=== PATIENT | male | born 1965 | race Caucasian/White ===

== ENCOUNTER 2024-01-17 16:43 | Emergency (ER) | payer BC, OTHER, SELFPAY ==
--- NOTE | 2024-01-17 16:54 | ED.URI ---
HPI - URI/Sore Throat General Chief Complaint: Upper Respiratory Infection Stated Complaint: cough Time Seen by Provider: 01/17/24 16:55 Source: patient Mode of arrival: ambulatory Limitations: no limitations History of Present Illness HPI Narrative: Patient is a 58-year-old male who presents with 2 weeks of persistent cough. Patient states at the start of symptoms he had typical cold symptoms with everything else has resolved besides cough. Denies ever having a fever, chills, nausea, vomiting, diarrhea. Patient has history of frequent bronchitis and has had cancer in his mediastinum years ago. Patient has been taking Tessalon Perles and [id number] medication. Related Data Home Medications Medication Instructions Recorded Confirmed aspirin 81 mg chewable tablet 81 mg PO DAILY 06/17/19 01/17/24 metoprolol succinate 100 mg 100 mg PO DAILY 06/17/19 01/17/24 tablet,extended release 24 hr telmisartan 40 mg tablet 40 mg PO DAILY 07/08/20 01/17/24 rosuvastatin 40 mg tablet 40 mg PO DAILY 07/13/22 01/17/24 ticagrelor 90 mg tablet (Brilinta) 60 mg PO Q12H 07/13/22 01/17/24 nitroglycerin 0.4 mg sublingual 0.4 mg sublingual Q5M PRN Chest 08/14/22 01/17/24 tablet Pain coenzyme Q10 75 mg capsule 75 mg PO DAILY 07/12/23 01/17/24 benzonatate 200 mg capsule 200 mg PO PRN PRN Cough 01/17/24 01/17/24 testosterone enanthate 200 mg/mL 200 mg IM WEEKLY 01/17/24 01/17/24 intramuscular oil Allergies Allergy/AdvReac Type Severity Reaction Status Date / Time lisinopril AdvReac Intermediate Cough Verified 01/17/24 16:53 celecoxib AdvReac Mild Rash Verified 01/17/24 16:53 Review of Systems Review of Systems: All systems reviewed & are unremarkable except as noted in HPI and below Constitutional: Constitutional: Denies body ache(s), Denies chills, Denies fatigue, Denies fever(s), Denies headache(s), Denies malaise and Denies weakness Eyes: Eyes: Denies blurry vision, Denies itchy eyes and Denies loss of vision ENT: Denies otalgia, Denies headache(s), Denies nasal congestion, Denies sinus pain and Denies sore throat Cardiovascular: Cardiovascular: Denies chest pain, Denies irregular heart rhythm and Denies dyspnea Respiratory: Respiratory: Reports cough and Denies dyspnea Gastrointestinal: Gastrointestinal: Denies abdominal pain, Denies diarrhea, Denies nausea and Denies vomiting Musculoskeletal: Musculoskeletal: Denies back pain, Denies myalgias and Denies arthralgias Integumentary/Breasts: Skin/Breast: Denies pruritus and Denies rash Neurologic: Denies headache(s), Denies loss of vision and Denies weakness Psychiatric: Psychiatric: Reports no additional psychiatric complaints Endocrine: Endocrine: Denies fatigue Allergic/Immunologic: Allergic/Immunologic: Denies itchy eyes PMFSH Past Medical History Medical History 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 Benign prostatic hyperplasia without lower urinary tract symptoms Cervical disc disorder with radiculopathy 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 Dyslipidemia ED (erectile dysfunction) Essential (primary) hypertension 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
[2024-01-17 17:04] VITALS: BP 141/82; PULSE 74; RESP 18; TEMP 36.8; O2SAT 96
== END 2024-01-17 17:14 | disposition home or self-care (01) ==
PROVIDERS: Emergency Provider Nurse Practitioner Family; PCP Physician Assistant
DX: J20.9 Acute bronchitis, unspecified (principal); Z87.891 Personal history of nicotine dependence; I25.10 Atherosclerotic heart disease of native coronary artery without angina pectoris; N40.0 Benign prostatic hyperplasia without lower urinary tract symptoms; E78.5 Hyperlipidemia, unspecified; I25.2 Old myocardial infarction; E11.9 Type 2 diabetes mellitus without complications; Z95.5 Presence of coronary angioplasty implant and graft; Z85.29 Personal history of malignant neoplasm of other respiratory and intrathoracic organs
CPT/HCPCS: 99211; G0463

== ENCOUNTER → 2024-07-20 10:43 | Outpatient (CLI) | payer BC, OTHER, SELFPAY ==
--- OUTSIDE RECORDS SUMMARY | 2024-07-28 06:51 | XMS_ITS | Encounter Summary ---
Author Organization [facility] Address [address] [place] [address]. [place], [place] [id number] [place] [address] Care Team Providers Care Basic Combatant Swimmer Name Role Phone Carroll Self MD Unavailable [phone] Carole Ravi PA-C Primary Care Provider + [phone] Encounter Details Date Type Department Care Team (Latest Contact Info) Description 06/02/2021 Travel Social History Tobacco Use Types Packs/Day Years Used Date Smoking Tobacco: Former Smokeless Tobacco: Former Chew Quit: 1993 Alcohol Use Standard Drinks/Week Comments Yes 1.7 (1 standard drink = 0.6 oz p ure alcohol) 2-3 per month AUDIT-C Answer Date Recorded Frequency of Alcohol Consumption Monthly or less 02/12/2019 Average Number of Drinks Not on file 019 Frequency of Binge Drinking Not on file 02/02 Sex and Gender Information Value Date Recorded Sex Assigned at Not on file Legal Sex Male 10:17 AM CDT Gender Identity Not on file Sexual Orientation Not on file 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 No / Unsure 06/02/2021 9:08 AM CDT documented as of this encounter Plan of Treatment Upcoming Encounters Date Type Department Care Team (Late st Contact Info) Description 08/31/2024 3:00 PM RESIN COATER Office Visit [facility] [address] [place] [phone] Carroll Self MD [facility]. [address] [address] documented as of this encounter Visit Diagnoses Not on filedocumented in this encounter Care Teams Basic Combatant Swimmer Relationship Specialty Start Date End Date Carole Ravi PA-C [address] [phone] PCP - General PHYSICIAN HAND FUNNEL COATER 01/26/19 Carroll Self MD [facility] [place]. [facility] [address] [place] [address] Didier Food Stylist CARDIOVASCULAR DISEASE 01/19/19 documented as of this encounter
--- OUTSIDE RECORDS SUMMARY | 2024-07-28 06:51 | XMS_ITS | Encounter Summary ---
Author Organization [facility] Address [address] [place] [address]. [place], [place] [address] [place] [address] Care Team Providers Care Physician/Internist Name Role Phone Carroll Self MD Unavailable [phone] Carole Ravi PA-C Primary Care Provider + [phone] Reason for Visit * Reason Onset Date Comments Advise 11/03/2019 Encounter Details Date Type Department Care Team (Late st Contact Info) Description 11/03/2019 Telephone [facility] at [address] [address] Carroll Self MD [facility]. 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 documented in this encounter Plan of Treatment Upcoming Encounters Date Type Department Care Team (Late st Contact Info) Description 08/31/2024 3:00 PM BENEFITS MANAGER [facility] [address] [place] [phone] Carroll Self MD [facility]. [facility] [address] [place], [place] [phone] documented as of this encounter Visit Diagnoses Not on filedocumented in this encounter Care Teams Physician/Internist Relationship Specialty Start Date End Date Carole Ravi PA-C [facility] [address] [place] [phone] PCP - General PHYSICIAN BEAN SORTER 01/26/19 Carroll Self MD [facility]. [facility] [address] [place], [place] [phone] [place] Special Agent In Charge CARDIOVASCULAR DISEASE 01/19/19 documented as of this encounter
--- OUTSIDE RECORDS SUMMARY | 2024-07-28 06:51 | XMS_ITS | Encounter Summary ---
Author Organization [facility] Address [address] [place] [address]. [place], [place] [address] [place] [address] Care Team Providers Care Applications Scientist Name Role Phone Carroll Sefl MD Unavailable [phone] Carole Ravi PA-C Primary Care Provider + [phone] Reason for Visit * Reason Comments Coronary Artery Disease Cardiomyopathy Hypertension Lipids Encounter Details Date Type Department Care Team (Late st Contact Info) Description 08/13/2022 9:15 AM TACK MAKER [facility] [address] [place] [phone] Elodia Alex, LETITIA [address] [place] [address] Coronary Artery Disease; Cardiomyopathy; Hypertension; Lipids Social History Tobacco Use Types Packs/Day Years [...] 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 Unable to assess 08/13/2022 9:53 AM TACK MAKER documented as of this encounter Last Filed Vital Signs Vital Sign Reading Time Taken Comments Blood Pressure 110/70 08/13/2022 9:14 AM TACK MAKER Pulse 75 08/13/2022 9:14 AM TACK MAKER Temperature - - Respiratory Rate - - Oxygen Saturation - - Inhaled Oxygen Concentration - - Weight 132.5 kg (292 lb) 08/13/2022 9:14 AM TACK MAKER Height 188 cm (6' 2 ) 08/13/2022 9:14 AM TACK MAKER Body Mass Index 37.49 08/13/2022 9:14 AM TACK MAKER documented in this encounter Progress Notes * Elodia Alex, LETITIA - 08/13/2022 9:15 AM CST Reason for Visit: Coronary Artery Disease, Cardiomyopathy, Hypertension, and Lipids History of Present Illness: Spencer Chaudhari is a pleasant 56-year-old male who a past medical history of CAD, 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 In January 2019 was on a family vacation at [employer] in [place] when he developed worsening SOB/CP. Had been having mild GALLO for weeks prior. Emergently seen in [place] and was found to have a 75% distal left main. Discussion between CTS/cardiologyand patient led to patient having impella assisted LM-LAD stenting and stenting of D1. Has been doing okay. Still with some heartburn after eating. Does note 4 episodes of chest pressurein the last 6 months. Seems to happen most after he has eaten a heavy meal or more gassy foods. attributes it from his paralyzed L diaphragm. All improved with one SL NTG. No issues while on a treadmill, otherwise feeling well. Still trying to use his home treadmill regularly. No new SOB. Tolerating meds well. Has plans to start a new diet plan for this year to better assist with weight loss. Still having problems with ED, even with Cialis. Some increased anxiety as well given underlying health problems. Labs: Lab Results Component Value Date/Time CHOL 110 06/02/2021 09:12 AM HDL 49 06/02/2021 09:12 AM LDL 47 06/02/2021 09:12 AM TRI 72 06/02/2021 09:12 AM CR 1.27 06/02/2021 09:12 AM Data Reviewed: Echo (2018) - EF 45-50%. Thickened valves but no significant valve disease. Cath (01/14/2019) - awaiting actual cath films. From description sounds like 75% distal LM, 55% mid LAD, 90% D1, 50% LCx. S/p KALEB to distal LM/LAD and proximal D1 Echo (07/2020) - EF > 55%, RV with depressed function. Not able to assess valves well. Recommendations and Plan: CAD/NSTEMI - had a minimal NSTEMI on presentation to [place], but also had complex intervention. Reasonable to keep on DAPT for now unless has significant bleeding/bruising. Continue high dose statin, metoprolol. Will not do stress testing yet, despite occasional angina, given continued okay exercise tolerance. Patient knows to call if anginal symptoms get worse or more frequent. HLP - continue on HI statin, LDL < 70. New labs pending HTN - controlled. No changes needed. ICM - had initially during cardiac event in 2019, but most recent echo seems to show EF normalized. KIRBY - Patient is compliant with CPAP therapy. Continue nightly use. ED - on Cialis. Still having problems. Aware CPAP compliance, exercise, weight loss can also help. Will have him see urology (Dr. Morales) for further evaluation. Follow up in 6 months or sooner if needed. Medications: Current Outpatient Medications: ??? aspirin EC 81 MG tablet, Take 81 mg by mouth daily., Disp: , Rfl: ??? BRILINTA 60 MG tablet, TAKE 1 TABLET BY MOUTH TWICE A DAY, Disp: 180 tablet, Rfl: 0 ??? lactobacillus capsule, Take 1 capsule by mouth 2 (two) times daily with meals., Disp: , Rfl: ??? metoprolol succinate ER (TOPROL-XL) 100 MG 24 hr tablet, TAKE 1 TABLET BY MOUTH EVERY DAY, Disp: 90 tablet, Rfl: 0 ??? nitroglycerin (NITROSTAT) 0.4 MG SL tablet, PLACE 1 TABLET UNDER THE TONGUE EVERY 5 MINUTES, UPTO 3 DOSES NEEDED FOR CHEST PAIN, Disp: 25 tablet, Rfl: 1 ??? rosuvastatin (CRESTOR) 40 MG tablet, Take 1 tablet (40 mg total) by mouth nightly at bedtime., Disp: 90 tablet, Rfl: 2 ??? SYMBICORT 160-4.5 MCG/ACT inhaler, 2 (two) times a day., Disp: , Rfl: ??? tadalafil (CIALIS) 20 MG tablet, Take 1 tablet (20 mg total) by mouth daily as needed for Erectile Dysfunction., Disp: 10 tablet, Rfl: 1 ??? TELMISARTAN 40 MG tablet, TAKE 1 TABLET BY MOUTH EVERY DAY, Disp: 90 tablet, Rfl: 2 ??? VICTOZA 18 MG/3ML injection, INJECT 1.8MG UNDER THE SKIN ONCE DAILY, Disp: , Rfl: Allergies Allergen Reactions ??? Celebrex [Celecoxib] Rash Past Medical History: Diagnosis Date ??? CAD (coronary artery disease) ??? Cancer (CMS/HCC) ??? Dyslipidemia ??? Essential hypertension ??? Myocardial infarction (CMS/HCC) 01/10/2019 ??? Sleep apnea Past Surgical History: Procedure Laterality Date ??? CARDIAC STENTS 01/14/2019 Social History Tobacco Use ??? Smoking status: Former ??? Smokeless tobacco: Former Types: Chew Quit date: 1993 Substance Use Topics ??? Alcohol use: Yes Alcohol/week: 1.7 standard drinks Types: 1 Glasses of wine per week Comment: 2-3 per month ??? Drug use: No No family history on file. Family Status Relation Name Status ??? Mother Alive ??? Father Alive ??? Sister Alive ??? Brother Alive Review of Systems Constitutional: Negative for recent unintentional weight gain, recent unintentional weight loss andnew or significant fatigue. HENT: Negative for new or significant hearing loss. Eyes: Negative for blurred vision and double vision. Respiratory: Positive for cough (occasional ). Negative for new or significant shortness of breath and snoring. Cardiovascular: See HPI. Positive for chest pain.Negative for palpitations and orthopnea. Gastrointestinal: Positive for heartburn. Negative for blood in stool and melena. Genitourinary: Negative for dysuria. Musculoskeletal: Negative for myalgias and new or worsening joint stiffness/pain. Skin: Negative for rash. Neurological: Negative for tingling/numbness and focal weakness. Endo/Heme/Allergies: Negative for new or significant bruising/bleeding and polydipsia. Psychiatric/Behavioral: Positive for nervous/anxious. Negative for depression and new or significant memory loss. Filed Vitals: 08/13/22 0914 BP: 110/70 Pulse: 75 Weight: 132.5 kg (292 lb) Height: 6' 2 (1.88 m) Body mass index is 37.49 kg/m??. Physical Exam Constitutional: No distress. HENT: Eyes: Conjunctivae normal. Neck: Normal range of motion. Neck supple. No JVD. Pulmonary: Effort normal. Breath sounds normal. Abdomen: Abdomen soft. Bowel sounds normal. No distension. No tenderness. Neurological: Alert. Oriented x 3. Skin: Dry. Warm. Musculoskeletal: Normal ROM. Cardiovascular: Rate: Regular rhythm and Normal rate. PMI: Pulses: Right Carotid pulses 2+, Left Carotid pulses 2+, Right DP pulses 2+, Left DP pulses 2+, Edema left: 0. , Edema Right: 0. , Heart Sounds: Normal heart sounds. Normal S1 and Normal S2. No S3 sound. No S4 sound and No murmur. Cardiovascular Comments: Diagnoses/Impression: No diagnosis found. Referring Provider: No ref. provider found PCP: CAROLE RAVI PA-C MAKER documented in this encounter Plan of Treatment Upcoming Encounters Date Type Department Care Team (Late st Contact Info) Description 08/31/2024 3:00 PM TACK MAKER Office Visit [facility] [address] [place] [phone] Carroll Self MD [facility]. [address] [address] documented as of this encounter Results * CK (CPK) (02/11/2023 8:37 AM CDT) CPK 182 39 - 308 U/L 02/11/2023 9:[address] [facility] 02/11/2023 8:37 AM CDT Elodia Alex [facility] Final Result [facility] [address] [place] [address], [place] [phone] * (ABNORMAL) HGB A1C (02/11/2023 8:37 AM CDT) HGB A1C 6.5(H) <5.7 % 02/11/2023 10:[address] [facility] Comment: INCREASED RISK OF DIABETES <5.7% ?NON-DIABETES 5.7-6.4% INCREASED RISK FOR FUTURE DIABETES > OR = 6.5 CONSISTENT WITH DIABETES STANDARDS OF MEDICAL CARE IN DIABETES-2009 DIABETES CARE, 33(SUPP 1): S1-S61,2010 ESTIMATED AVG GLUCOSE 140 mg/dL 02/11/2023 10:[address] [facility] 02/11/2023 8:37 AM CDT Elodia Alex [facility] Final Result Performing Organization Address [facility] Co de Phone Number [facility] [address] [place] [address], [place] [phone] * LIPID PANEL (02/11/2023 8:37 AM CDT) CHOLESTEROL 114 <200.0 MG/DL 02/11/2023 9:[address] [facility] TRIGLYCERIDES 83 <150 MG/DL 02/11/2023 9:[address] [facility] HDL 54 >40.0 MG/DL 02/11/2023 9:[address] [facility] LDL (CALCULATED) 43 <100 MG/DL 02/12/20 9:06 AM CDT [facility] NON HDL CHOLESTEROL 60 <130 MG/DL 02/11 9:06 AM CDT [facility] CHOL/HDL RATIO 2.1 0.0 - 4.5 02/11/2023 9:06 AM CDT [facility] VLDL CALCULATION 17 5 - 55 MG/DL 02/11/2023 9:06 AM CDT [facility] LIPID INTERPRETATION 02/11/2023 9:06 AM CDT [facility] Comment: NIH CONCENSUS REPORT RECOMMENDATIONS: ?ADULT ?CHILD ??LOW RISK: ?CHOLESTEROL ? <200 ? <170 ?TRIGLYCERIDE ?<150 ?--- ?HDL ? >=60 ?--- ?LDL ? <100 ? <110 ??BORDERLINE: ?CHOLESTEROL ? 200-239 ?? 170-199 ?TRIGLYCERIDE ?150-199 ? --- ?HDL ?40-59 ?--- ?LDL ? 100-159 ?? 110-129 ??HIGH RISK: ?CHOLESTEROL ? >=240 ?>=200 ?TRIGLYCERIDE ?>=200 ? --- ?HDL ?<40 ?--- ?LDL ? >=160 ?>=130 02/11/2023 8:37 AM CDT Elodia Alex [facility] Final Result [facility] [address] [place] [address], * (ABNORMAL) CBC, AUTO, NO DIFF (02/11/2023 8:37 AM CDT) WBC 4.35(L) 4.4 - 11.0 x10'3/uL 02/11/2023 8:[address] [facility] RBC 4.61 4.50 - 5.90 x10'6/uL 02/11/2023 8:[address] [facility] HGB 13.2(L) 14.0 - 17.5 G/DL 02/11/2023 8:[address] [facility] HCT 41.4(L) 41.5 - 50.4 % 02/11/2023 8:[address] [facility] MCV 89.8 80.0 - 96.0 FL 02/11/2023 8:[address] [facility] MCH 28.6 26.5 - 31.4 PG 02/11/2023 8:[address] [facility] MCHC 31.9 31.9 - 34.8 G/DL 02/11/2023 8:[address] [facility] RDW 16.1(H) 12.3 - 14.3 % 02/11/2023 8:[address] [facility] PLT 163 151 - 353 x10'3/uL 02/11/2023 8:[address] [facility] MPV 10.5 9.7 - 11.9 FL 02/11/2023 8:[address] [facility] 02/11/2023 8:37 AM CDT [facility] Final Result [facility] [address] [place] [address], [place] [phone] * (ABNORMAL) BASIC METABOLIC PANEL (02/11/2023 8:37 AM CDT) GLUCOSE 102(H) 70 - 99 MG/DL 02/11/2023 9:[address] [facility] BUN 17 7 - 18 MG/DL 02/11/2023 9:[address] [facility] CREATININE S/P/B 1.26 0.7 - 1.3 MG/DL 02/11/2023 9:[address] [facility] SODIUM S/P/B 139 136 - 145 MMOL/L 02/11/2023 9:[address] [facility] POTASSIUM S/P/B 4.2 3.5 - 5.1 MMOL/L 02/11/2023 9:[address] [facility] CHLORIDE S/P/B 102 100 - 108 MMOL/L 02/11/2023 9:[address] [facility] CO2 27.4 21 - 32 MMOL/L 02/11/2023 9:[address] [facility] CALCIUM S/P/B 9.2 8.5 - 10.1 MG/DL 02/11/2023 9:[address] [facility] ANION GAP 9.6 5 - 15 MMOL/L 02/11/2023 9:[address] [facility] BUN CREATININE RATIO 13.5 6 - 26 02/11/2023 9:[address] [facility] GFR ESTIMATE 67(L) >90 ML/MIN/1.7 3 M2 02/11/2023 9:[address] [facility] Comment: NOTE: eGFR is not calculated for patients <18 years of age. This is an estimated GFR calculation using the new CKD EPI creatinine equation without race and so does not require a correction factor for race. This estimated GFR should not be used for calculating drug doses. 02/11/2023 8:37 AM CDT Elodia Alex [facility] Final Result [facility] [address] [place] [id number], documented in this encounter Visit Diagnoses Diagnosis Coronary artery disease due to lipid rich plaque- Primary Type 2 diabetes mellitus with other specified complication, unspecified whether intermediate school teacher insulin use ([facility]) Essential (primary) hypertension Unspecified essential hypertension Mixed hyperlipidemia Class 2 obesity due to excess calories with body mass index (BMI) of 37.0 to 37.9 in adult, unspecified whether serious comorbidity present KIRBY on CPAP Obstructive sleep apnea (adult) (pediatric) Erectile dysfunction, unspecified erectile dysfunction type documented in this encounter Care Teams Applications Scientist Relationship Specialty Start Date End Date Carole Ravi PA-C [facility] [address] [place] [phone] PCP - General PHYSICIAN AIRCRAFT TIME CLERK 01/26/19 Carroll Self MD [address] [address] [place] Telegraphic Typewriter Repairer CARDIOVASCULAR DISEASE 01/19/19 documented as of this encounter
--- OUTSIDE RECORDS SUMMARY | 2024-07-28 06:51 | XMS_ITS | Encounter Summary ---
Author Organization [facility] Address [address] [place] [address]. [place] [address] [place] [address] Care Team Providers Care Management Development Specialist Name Role Phone Carroll Self MD Unavailable [phone] Carole Ravi PA-C Primary Care Provider + [phone] Reason for Visit * Reason Comments Coronary Artery Disease Cardiomyopathy Hypertension Lipids Encounter Details Date Type Department Care Team (Late st Contact Info) Description 02/11/2023 9:15 AM CDT [facility] [address] [place] [phone] Carroll Self MD [address] [phone] Coronary Artery Disease; Cardiomyopathy; Hypertension; Lipids Social [...] 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 Not on file Not on file documented as of this encounter Last Filed Vital Signs Vital Sign Reading Time Taken Comments Blood Pressure 138/88 02/11/2023 9:04 AM CDT Pulse 68 02/11/2023 9:04 AM CDT Temperature - - Respiratory Rate - - Oxygen Saturation - - Inhaled Oxygen Concentration - - Weight 136.1 kg (300 lb) 02/11/2023 9:04 AM CDT Height 188 cm (6' 2 ) 02/11/2023 9:04 AM CDT Body Mass Index 38.52 02/11/2023 9:04 AM CDT documented in this encounter Patient Instructions * Patient Instructions* LAZARO Parnell - 02/11/2023 9:15 AM CDT documented in this encounter Progress Notes * Carroll Self MD - 02/11/2023 9:15 AM CDT Reason for Visit: Coronary Artery Disease, Cardiomyopathy, Hypertension, and Lipids History of Present Illness: Spencer Chaudhari is a pleasant 57-year-old male who a past medical history of CAD, 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 In January 2019 was on a family vacation at [place] in [place] when he developed worsening SOB/CP. Had been having mild GALLO for weeks prior. Emergently seen in [place] and was found to have a 75% distal left main. Discussion between CTS/cardiologyand patient led to patient having impella assisted LM-LAD stenting and stenting of D1. Has been doing okay. Still with some heartburn after eating. Feels full, and that if he starts doing something active will have some chest discomfort. Doesn't happen other times. Still on a TM at least once a week, but admits he is doing less than he used to. About 2.5MPH at 2-3% incline. No problems with this. No other new chest pain/pressure, SOB. No new edema. No problems with LH. Using CPAP without issues. Labs: Lab Results Component Value Date/Time CHOL 114 02/11/2023 08:37 AM HDL 54 02/11/2023 08:37 AM LDL 43 02/11/2023 08:37 AM TRI 83 02/11/2023 08:37 AM CR 1.26 02/11/2023 08:37 AM Data Reviewed: Echo (2018) - EF [...] had a minimal NSTEMI on presentation to [place], but also had complex intervention. Reasonable to [...] compliance, exercise, weight loss can also help. Could see urology Follow up in 6 months or sooner if needed. Medications: Current Outpatient Medications: aspirin EC 81 MG tablet, Take 1 tablet (81 mg total) by mouth daily., Disp: , Rfl: BRILINTA 60 MG tablet, TAKE 1 TABLET BY MOUTH TWICE A DAY, Disp: 180 tablet, Rfl: 1 lactobacillus capsule, Take 1 capsule by mouth 2 (two) times daily with meals., Disp: , Rfl: metoprolol succinate ER (TOPROL-XL) 100 MG 24 hr tablet, TAKE 1 TABLET BY MOUTH EVERY DAY, Disp: 90tablet, Rfl: 1 MOUNJARO 7.5 MG/0.5ML injection, INJECT 7.5MG SUBCUTANEOUSLY ONCE WEEKLY, Disp: , Rfl: nitroglycerin (NITROSTAT) 0.4 MG SL tablet, PLACE 1 TABLET UNDER THE TONGUE EVERY 5 MINUTES, UP TO 3 DOSES NEEDED FOR CHEST PAIN, Disp: 25 tablet, Rfl: 1 rosuvastatin (CRESTOR) 40 MG tablet, TAKE 1 TABLET BY MOUTH NIGHTLY AT BEDTIME, Disp: 90 tablet, Rfl: 2 SYMBICORT 160-4.5 MCG/ACT inhaler, 2 (two) times a day., Disp: , Rfl: tadalafil (CIALIS) 20 MG tablet, Take 1 tablet (20 mg total) by mouth daily as needed for Erectile Dysfunction., Disp: 10 tablet, Rfl: 1 telmisartan (MICARDIS) 40 MG tablet, TAKE 1 TABLET BY MOUTH EVERY DAY, Disp: 90 tablet, Rfl: 1 Review of patient's allergies indicates: Allergen Reactions Celebrex [Celecoxib] Rash Past Medical History: Diagnosis Date CAD (coronary artery disease) Cancer ([facility]) Dyslipidemia Essential hypertension Myocardial infarction ([facility]) 01/10/2019 Sleep apnea Past Surgical History: Procedure Laterality Date CARDIAC STENTS 01/14/2019 Social History Tobacco Use Smoking status: Former Smokeless tobacco: Former Types: Chew Quit date: 1993 Substance Use Topics Alcohol use: Yes Alcohol/week: 1.7 standard drinks Types: 1 Glasses of wine per week Comment: 2-3 per month Drug use: No No family history on file. Family Status Relation Name Status Mother Alive Father Alive Sister Alive Brother Alive Review of Systems Constitutional: Negative [...] new or significant memory loss. Filed Vitals: 02/11/23 0904 BP: 138/88 Pulse: 68 Weight: 136.1 kg (300 lb) Height: 6' 2 (1.88 m) Body mass index is 38.52 kg/m??. Physical Exam Constitutional: No distress. HENT: [...] 2+, Left DP pulses 2+, Edema left: 1+. , Edema Right: 1+. Heart Sounds: Normal heart sounds. Normal S1 and Normal S2. No S3 sound. No S4 sound and No murmur. Cardiovascular Comments: Diagnoses/Impression: 1. Coronary artery disease due to lipid rich plaque 2. Dyslipidemia 3. Essential (primary) hypertension 4. Ischemic cardiomyopathy 5. KIRBY on CPAP Referring Provider: No ref. provider found PCP: CAROLE RAVI PA-C documented in this encounter Plan of Treatment Upcoming Encounters Date Type Department Care Team (Late st Contact Info) Description 08/31/2024 3:00 PM ACADEMIC COUNSELOR Office Visit [facility] [address] [phone] Carroll Self MD [facility]. [address] [address] documented as of this encounter Visit Diagnoses Diagnosis Coronary artery disease due to lipid rich plaque- Primary Dyslipidemia Other and unspecified hyperlipidemia Essential (primary) hypertension Unspecified essential hypertension Ischemic cardiomyopathy Other specified forms of chronic ischemic heart disease KIRBY on CPAP Obstructive sleep apnea (adult) (pediatric) documented in this encounter Care Teams Management Development Specialist Relationship Specialty Start Date End Date Carole Ravi PA-C FAMILY MEDICINE [address] [place] [phone] PCP - General PHYSICIAN INSTRUCTIONAL CONSULTANT 01/26/19 Carroll Self MD [facility]. [address] [address] [place] Medical Consultant CARDIOVASCULAR DISEASE 01/19/19 documented as of this encounter
--- OUTSIDE RECORDS SUMMARY | 2024-07-28 06:51 | XMS_ITS | Encounter Summary ---
Author Organization [facility] Address [address] [place] [address]. [place], [place] [address] [place] [address] Care Team Providers Care Creative Writing Professor Name Role Phone Carroll Self MD Unavailable [phone] Carole Ravi PA-C Primary Care Provider + [phone] Reason for Visit * Reason Comments Coronary Artery Disease Cardiomyopathy Encounter Details Date Type Department Care Team (Late st Contact Info) Description 02/17/2024 9:30 AM CDT [facility] [address] [place] [address] Carroll Self MD [facility]. 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 Not on file Not on file documented as of this encounter Last Filed Vital Signs Vital Sign Reading Time Taken Comments Blood Pressure 110/70 02/17/2024 9:34 AM CDT Pulse 68 02/17/2024 9:34 AM CDT Temperature - - Respiratory Rate - - Oxygen Saturation - - Inhaled Oxygen Concentration - - Weight 128.8 kg (284 lb) 02/17/2024 9:34 AM CDT Height 188 cm (6' 2 ) 02/17/2024 9:34 AM CDT Body Mass Index 36.46 02/17/2024 9:34 AM CDT documented in this encounter Progress Notes * Elodia Alex, LETITIA - 02/17/2024 9:30 AM CDT Reason for Visit: Coronary Artery Disease and Cardiomyopathy History of Present Illness: Spencer Chaudhari is a very pleasant 58-year-old male who a past medical history of CAD, 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 In January 2019 [place] was [place] when he developed worsening SOB/CP. Had been having mild GALLO for weeks prior. Emergently seen in [place] and was found to have a 75% distal left main. Discussion between CTS/cardiology and patient led to patient having impella assisted LM-LAD stenting and stenting of D1. Has been doing well since. Using CPAP without issues. Follows with urology now for his ED. Has beentaking testosterone for over 7 months now. Has a better libido now thus, more sexually active. He tells me that during climax, will develop SOB. No CP, pressure or heaviness. Will use an albuterol inhaler after. Seems to be helpful. Lasts only a few seconds. Has a sleep doc at [facility]. Isplanning on taking to him about it in the next couple months. No clear SOB doing ADLs. Walking for activity but no regular exercise. Is wanting to start a more designated exercise program with some weight lifting. Still losing some weight with the assist of Ronnie. Is wanting to loose 50 more lbs. Labs: Lab Results Component Value Date/Time CHOL [...] to assess valves well. Recommendations and Plan: CAD/NSTEMI/SOB - had a minimal NSTEMI on presentation to [place], but also had complex intervention. Reasonable to keep on DAPT for now unless has significant bleeding/bruising. Continue high dose statin,metoprolol. HEAVILY encouraged more exercise to better gait symptoms. Not interested in repeat stress testing right now. Patient knows to call if anginal symptoms get worse or more frequent. Has SL NTG on hand if needed. HLP - continue on HI statin, LDL < 70. New labs pending. HTN - controlled. No changes needed. ICM - had initially during cardiac event in 2019, but most recent echo seems to show EF normalized.No CHF concerns. KIRBY - Patient is compliant with CPAP therapy. Continue nightly use. ED - on Cialis and testosterone. Would be overly cautious given his CAD hx. Follow up in 6 months or sooner if needed. Medications: Current Outpatient Medications: albuterol sulfate HFA 108 (90 Base) MCG/ACT inhaler, INHALE 1 - 2 PUFFS BY MOUTH EVERY 4 - 6 HOURS NEEDED FOR SHORTNESS OF BREATH OR WHEEZING, Disp: , Rfl: aspirin EC 81 MG tablet, Take 1 tablet (81 mg total) by mouth daily., Disp: , Rfl: lactobacillus capsule, Take 1 capsule by mouth 2 (two) times daily with meals., Disp: , Rfl: metoprolol succinate ER (TOPROL-XL) 100 MG 24 hr tablet, take 1 tablet by mouth every day, Disp: 90tablet, Rfl: 1 [facility] OR, Take by mouth daily. hepatacore, Disp: , Rfl: MOUNJARO 10 MG/0.5ML injection, Inject 10 mg into the skin every 7 days., Disp: , Rfl: nitroglycerin (NITROSTAT) 0.4 MG SL tablet, PLACE 1 TABLET (0.4 MG TOTAL) UNDER THE TONGUE EVERY 5 (FIVE) MINUTES NEEDED FOR CHEST PAIN. MAXIMUM 3 DOSES. THEN CALL 911, Disp: 25 tablet, Rfl: 3 rosuvastatin (CRESTOR) 40 MG tablet, take 1 tablet by mouth everyday at bedtime, Disp: 90 tablet, Rfl: 1 SYMBICORT 160-4.5 MCG/ACT inhaler, 2 (two) times a day., Disp: , Rfl: tadalafil (CIALIS) 20 MG tablet, Take 1 tablet (20 mg total) by mouth daily as needed for Erectile Dysfunction., Disp: 10 tablet, Rfl: 1 telmisartan (MICARDIS) 40 MG tablet, take 1 tablet by mouth every day, Disp: 90 tablet, Rfl: 1 testosterone enanthate (DELATESTRYL) 200 MG/ML injection, Inject 0.5 mLs (100 mg total) into the muscle every 7 days., Disp: , Rfl: ticagrelor (BRILINTA) 60 MG tablet, take 1 tablet by mouth twice a day, Disp: 180 tablet, Rfl: 1 Vitamin D-Vitamin K (VITAMIN K2-VITAMIN D3 OR), Take by mouth daily., Disp: , Rfl: Review of patient's allergies indicates: Allergen Reactions Lisinopril Cough Celebrex [Celecoxib] Rash Past Medical History: Diagnosis Date CAD (coronary artery disease) Cancer ([facility]) Dyslipidemia Essential hypertension Myocardial infarction ([facility]) 01/10/2019 Sleep apnea Past Surgical History: Procedure Laterality Date CARDIAC STENTS 01/14/2019 Social History Tobacco Use Smoking status: Former Smokeless tobacco: Former Types: Chew Quit date: 1993 Substance Use Topics Alcohol use: Yes Alcohol/week: 1.7 standard drinks of alcohol Types: 1 Glasses of wine per week Comment: 2-3 per month Drug use: No No family history on file. Family Status Relation Name Status Mother Alive Father Alive Sister Alive Brother Alive No partnership data on file Review of Systems Constitutional: Positive for weight loss. Negative for recent unintentional weight gain and new or significant fatigue. HENT: Negative for new or significant hearing loss. Eyes: Negative for blurred vision and double vision. Respiratory: Positive for shortness of breath and snoring. Negative for cough. Cardiovascular: See HPI. Negative for chest pain, palpitations and orthopnea. Gastrointestinal: Negative for heartburn, nausea, vomiting, abdominal pain, constipation, blood in stool and melena. Genitourinary: Negative for dysuria. Musculoskeletal: Negative for myalgias and new or worsening joint stiffness/pain. Skin: Negative for rash. Neurological: Negative for dizziness, tingling/numbness and focal weakness. Endo/Heme/Allergies: Negative for new or significant bruising/bleeding and polydipsia. Psychiatric/Behavioral: Negative for depression, nervous/anxious and new or significant memory loss. All other systems reviewed and are negative. Filed Vitals: 02/17/24 0934 BP: 110/70 Pulse: 68 Weight: 128.8 kg (284 lb) Height: 1.88 m (6' 2 ) Body mass index is 36.46 kg/m??. Physical Exam Constitutional: Healthy appearance. No distress. HENT: Eyes: Conjunctivae normal. Neck: [...] Cardiovascular Comments: Diagnoses/Impression: 1. Coronary artery disease involving yomba shoshone coronary artery of yomba shoshone heart without angina pectoris 2. Essential (primary) hypertension 3. Mixed hyperlipidemia 4. KIRBY on CPAP 5. Class 2 obesity due to excess calories with body mass index (BMI) of 36.0 to 36.9 in adult, unspecified whether serious comorbidity present Referring Provider: No ref. provider found PCP: CAROLE RAVI PA-C documented in this encounter Plan of Treatment Upcoming Encounters Date Type Department Care Team (Late st Contact Info) Description 08/31/2024 3:00 PM FEATHER STITCHER [facility] [address] [place] [phone] Carroll Self MD [facility]. [address] [place] [address] documented as of this encounter Visit Diagnoses Diagnosis Coronary artery disease involving yomba shoshone coronary artery of yomba shoshone heart without angina pectoris- Primary SOB (shortness of breath) Shortness of breath Essential (primary) hypertension Unspecified essential hypertension Mixed hyperlipidemia KIRBY on CPAP Obstructive sleep apnea (adult) (pediatric) Class 2 obesity due to excess calories with body mass index (BMI) of 36.0 to 36.9 in adult, unspecified whether serious comorbidity present documented in this encounter Administered Medications Administered Medications Medication Order MAR Action Action Date Dose Rate Site Tb Sarah Test Given 01/25/2012 0.1 mL Tb Sarah Test Given 03/18/1998 Tb Sarah Test Given 03/24/1999 Tb Sarah Test Given 05/26/1997 Tb Sarah Test Given 05/15/2000 Tb Sarah Test Given 03/13/2002 documented in this encounter Care Teams Creative Writing Professor Relationship Specialty Start Date End Date Carole Ravi PA-C FAMILY MEDICINE [address] [place] [phone] PCP - General PHYSICIAN REGIONAL REFRIGERATED CDL TRUCK DRIVER 01/26/19 Carorll Self MD [facility]. [address] [place] [address] [place] Stock Worker And Deliverer CARDIOVASCULAR DISEASE 01/19/19 documented as of this encounter
--- OUTSIDE RECORDS SUMMARY | 2024-07-28 06:51 | XMS_ITS | Encounter Summary ---
Author Organization [facility] Address [address] [place] [address]. [place], [place] [address] [place] [address] Care Team Providers Care Wet Machine Cutter Name Role Phone Carroll Self MD Unavailable [phone] Carole Ravi PA-C Primary Care Provider + [phone] Reason for Visit * Reason Onset Date Comments Lab Results 06/02/2021 Encounter Details Date Type Department Care Team (Late st Contact Info) Description 06/02/[address] [phone] Jessica Pereira airport duty manager Results Social History Tobacco Use Types Packs/Day Years Used Date Smoking Tobacco: Former Smokeless Tobacco: Former Chew Quit: 1994 Alcohol Use Standard Drinks/Week Comments Yes 1.7 [...] 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 No / Unsure 06/02/2021 9:08 AM CDT documented as of this encounter Progress Notes * Jessica Pereira RN - 06/02/2021 2:10 PM CDT Labs stable. Above message from Elodia HUANG. I informed the patient of the above information and to keep his upcoming appt. The patient verbalized understanding and had no further questions. documented in this encounter Plan of Treatment Upcoming Encounters Date Type Department Care Team (Late st Contact Info) Description 08/31/2024 3:00 PM TEST DATA DEVELOPER Office Visit [facility] [address] [place] [phone] Carroll Self MD [facility]. [address] [address] documented as of this encounter Visit Diagnoses Not on filedocumented in this encounter Care Teams Wet Machine Cutter Relationship Specialty Start Date End Date Carole Ravi PA-C FAM[facility] MED[facility] [address] [place] [phone] PCP - General PHYSICIAN FITNESS WORKER 01/26/19 Carroll Self MD [facility]. [address] [address] [place] Pathology Supervisor CARDIOVASCULAR DISEASE 01/19/19 documented as of this encounter
--- OUTSIDE RECORDS SUMMARY | 2024-07-28 06:51 | XMS_ITS | Encounter Summary ---
Author Organization [facility] Address [address] [place] [address]. 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 Unable to assess 12/08/2020 2:50 PM CDT documented as of this encounter Plan of Treatment Upcoming Encounters Date Type Department Care Team (Late st Contact Info) Description 08/31/2024 3:00 PM INSURANCE AGENCY SALES MANAGER Office Visit [facility] [address] [place] [phone] Carroll Self MD [facility]. [facility] [address] [place] [address] documented as of this encounter Visit Diagnoses Not on filedocumented in this encounter Care Teams Applied Psychology Professor Relationship Specialty Start Date End Date Carole Ravi PA-C [address] [phone] PCP - General PHYSICIAN CORPORATE TREASURER 01/26/19 Carroll Self MD [facility]. [facility] [address] [place] [address] Didier Supervisor [employer] CARDIOVASCULAR DISEASE 01/19/19 documented as of this encounter
--- OUTSIDE RECORDS SUMMARY | 2024-07-28 06:51 | XMS_ITS | Encounter Summary ---
Author Organization [facility] Address [address] [place] [address]. [place], [place] [address] [place] [address] Care Team Providers Care Photographer'S Model Name Role Phone Carroll Self MD Unavailable [phone] Carole Ravi PA-C Primary Care Provider + [phone] Reason for Visit * Reason Onset Date Comments Results 06/09/2021 Encounter Details Date Type Department Care Team (Late st Contact Info) Description 06/09/[address] [phone] Emily Gutierres, RN Results Social History Tobacco Use Types Packs/Day [...] have Coronavirus / COVID-19? No / Unsure 06/08/2021 10:35 AM CDT documented as of this encounter Progress Notes * Emilydemario Gutierres RN - 06/09/2021 9:57 AM CDT Patient informed of the response and v/u. Patient had no further questions. * Emily Gutierres RN - 06/09/2021 9:57 AM CDT ----- Message from LETITIA Cook sent at 06/08/2021 1:07 PM CDT ----- Please let patient know that his A1C is 7.0% confirming T2DM. Needs addressed by his primary. documented in this encounter Plan of Treatment Upcoming Encounters Date Type Department Care Team (Late st Contact Info) Description 08/31/2024 3:00 PM HAND CUTTER APPRENTICE Office Visit [facility] [address] [phone] Carroll Self MD [facility]. [address] [address] documented as of this encounter Visit Diagnoses Not on filedocumented in this encounter Care Teams Photographer'S Model Relationship Specialty Start Date End Date Carole Ravi PA-C FAMILY MEDIC[facility] [address] [place] [phone] PCP - General PHYSICIAN DROSS PULLER 01/26/19 [facility] [address] [place], [place] [phone] [place] Roustabout Pusher CARDIOVASCULAR DISEASE 01/19/19 documented as of this encounter
--- OUTSIDE RECORDS SUMMARY | 2024-07-28 06:51 | XMS_ITS | Encounter Summary ---
Author Organization [facility] Address [address] [place] [address]. 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 * MARY Jiménez - 03/09/2019 3:49 PM CDT AugMarch 03 phone note states that his insurance will not cover rehab/ therapy here so he requested to go to [place]. documented in this encounter Plan of Treatment Upcoming Encounters Date Type Department Care Team (Late st Contact Info) Description 08/31/2024 3:00 PM CHIMNEY SWEEPER Office Visit [place] [facility] [address] [place] [phone] Carroll Self MD [facility]. [address] [address] documented as of this encounter Visit Diagnoses Not on filedocumented in this encounter Care Teams Natural Fabricator Relationship Specialty Start Date End Date Carole Ravi PA-C [facility] [address] [place] [phone] PCP - General PHYSICIAN ASSOCIATE AUTOMATION ENGINEER 01/26/19 Carroll Self MD [facility]. [facility] [address] [place] [address] Didier Acid Extractor CARDIOVASCULAR DISEASE 01/19/19 documented as of this encounter
--- OUTSIDE RECORDS SUMMARY | 2024-07-28 06:51 | XMS_ITS | Encounter Summary ---
Author Organization [facility] Address [address] [place] [address]. [place], [place] [address] [place] [address] Care Team Providers Care Porcelain Enameler Name Role Phone Carroll Self MD Unavailable [phone] Carole Ravi PA-C Primary Care Provider + [phone] Reason for Visit * Reason Onset Date Comments Information 03/10/2019 [facility] / record request Encounter Details Date Type Department Care Team (Late st Contact Info) Description 03/10/2019 Telephone [facility] at [facility], [address] [address] Carroll Self MD [facility]. 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 documented in this encounter Plan of Treatment Upcoming Encounters Date Type Department Care Team (Late st Contact Info) Description 08/31/2024 3:00 PM MEDICAL SALES REPRESENTATIVE Office Visit [place] [facility] [address] [place] [address] Carroll Self MD [facility]. [address] [address] documented as of this encounter Visit Diagnoses Not on filedocumented in this encounter Care Teams Porcelain Enameler Relationship Specialty Start Date End Date Carole Ravi PA-C [facility] [address] [place] [phone] PCP - General PHYSICIAN WHOLESALE MANAGER 01/26/19 Carroll Self MD [facility]. [facility] [address] [place] [address] Didier Custom Framing Specialist CARDIOVASCULAR DISEASE 01/19/19 documented as of this encounter
--- OUTSIDE RECORDS SUMMARY | 2024-07-28 06:51 | XMS_ITS | Encounter Summary ---
Author Organization [facility] Address [address] [place] [address]. [place] [address] [place] [address] Care Team Providers Care Machine Sander Name Role Phone Carroll Self MD Unavailable [phone] Carole Ravi PA-C Primary Care Provider + [phone] Reason for Visit * Reason Comments Coronary Artery Disease Lipids Encounter Details Date Type Department Care Team (Late st Contact Info) Description 04/30/2019 9:30 AM CDT Office Visit [facility] [address] [place] [phone] Tatianna Abraham, ANP-BC Carroll Self MD [address] [address] Coronary Artery Disease; Lipids Social History Tobacco Use Types Packs/Day [...] 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 Patient Education Patient Education DASH Diet About this topic DASH stands for Dietary Approaches to Stop Hypertension. The DASH diet may help you lower blood pressure. It may also help keep you from getting high blood pressure. You will eat less fat and more fiber on the DASH diet. This diet gives you more minerals that fight high blood pressure. Some nutrients in this diet are: ?? Potassium ? Acts to help you get rid of salt. This may help to lower blood pressure. ?? Calcium ? Makes blood vessels and muscles work the right way ?? Vitamin B12 ? Helps the cells work the right way ?? Fiber ? Helps you feel full. It also helps digestion. What will the results be? The DASH diet may help you: ?? Lower your blood pressure and cholesterol ?? Lower your risk for cancer, heart disease, heart attack, and stroke. It may also lower your riskfor heart failure, kidney stones, and diabetes. ?? Lose weight or keep a healthy weight What lifestyle changes are needed? ?? Add regular exercise to get the most help from this diet. ?? Do not skip meals. Eat breakfast each day. ?? Try to lower stress. Find ways to relax. ?? Stop smoking. Avoid secondhand smoke. ?? Limit alcohol intake. What changes to diet are needed? ?? Know about poor eating habits. Then, you can fix them as you work with the program. ?? Choose fruit and fruit-flavored gelatin instead of cakes and pastries. This will help to satisfyyour desire for sweets. ?? Limit eating food with a lot of salt or sodium in it. Avoid eating canned vegetables and processed foods. These have a lot of salt in them. Look for a low-salt or low-sodium choice. Who should use this diet? This eating plan is good for the whole family. It is also good for people with high blood pressure and those at risk for high blood pressure. What foods are good to eat? ?? Grains: Try to eat 6 to 8 servings of whole grain, high fiber foods each day. These are bread, cereals, brown rice, or pasta. ?? Fruits and vegetables: Eat 4 to 5 servings each day. Try to pick many kinds and colors. Fresh orfrozen are best. Look for low sodium or salt-free if you choose canned. Dried peas, beans, and lentils are also good. ?? Dairy: Try to eat 2 to 3 servings of fat free and low fat milk products each day. ?? Lean meats, poultry, and seafood: Try to eat 6 servings or less of lean meats, poultry, and seafood each day. Try to choose more low fat or lean meats like chicken and turkey. Eat less red meat. Eat more fish instead. ?? Nuts, seeds, and legumes (dry beans and peas): Try to eat 4 to 5 servings each week. Try to picknuts such as almonds, walnuts, sunflower seeds, peanut butter, soy beans, lentils, kidney beans, and split peas. ?? Fats and oils: Try to eat 2 to 3 servings of fats and oils each day. Eat good fats found in fish, nuts, and avocados. Try using olive oil or vegetable oils such as canola oil. Other good oils to try are corn, safflower, sunflower, or soybean oils. Use low-sodium and low-fat salad dressing and mayonnaise. ?? Condiments: Pepper, herbs, spices, vinegar, lemon or yavapai-apache juices are great for seasoning. Be careful to choose low-sodium or salt-free products if you use broths, soups, or soy sauce. ?? Sweets: Try to eat less than 5 servings each week. Choose low-fat, trans fat- free, sugar-free cookies. These are things like chai crackers, animal crackers, low-fat fig bars, and carin snaps. It is better to choose gelatin or fruit to satisfy your desire for sweets. What foods should be limited or avoided? ?? Grains: Salted breads, rolls, crackers, quick breads, self-rising flours, biscuit mixes, regularbread crumbs, instant hot cereals, commercially-prepared rice, pasta, stuffing mixes ?? Fruits and vegetables: Commercially-prepared potatoes and vegetable mixes, regular canned vegetables and juices, vegetables frozen with sauce or pickled vegetables, processed fruits with salt or sodium ?? Milk: Whole milk, malted milk, chocolate milk, buttermilk, cheese, ice cream ?? Meats and beans: Smoked, cured, salted, or canned fish; meats or poultry such as way, sausages, sardines; high-fat cuts of meat like beef, sierra, or pork; chicken with the skin on it ?? Fats: Cut back on solid fats like butter, lard, and margarine. Eat less food with high saturatedfat, cholesterol and total fat. ?? Condiments and snacks: Salted and canned peas, beans, and olives; salted snack foods; fried foods; soda or other sweetened drinks; commercially-softened water; club soda ?? Sweets: High-fat baked goods such as muffins, donuts, pastries, commercial baked goods, candy bars ?? Avoid drinking beer, wine, and mixed drinks (alcohol) and sodas. Helpful tips ?? Try baking or broiling instead of frying food. ?? Write down the foods you eat. This will help you track what you have eaten each week. ?? When you go to a grocery store, have a list or a meal plan. Do not shop when you are hungry to avoid cravings for foods. ?? Read food labels with care. They will show you how much is in a serving. The amount is given as a percentage of the total amount you need each day. Reading labels will help you make healthy food choices. ?? Avoid fast foods. ?? Taking vitamin and mineral supplements will help you balance your diet. ?? Talk to a dietitian for help. Where can I learn more? FamilyDoctor.org http://familydoctor.org/familydoctor/en/prevention-wellness/food-nutrition/weigh t-loss/nsl-abjf-aatt-cmgkoey-fqtoqn-dd-ryycoal-jqbl-lbhgq-pressure.html National Heart Lung and Blood Ellis http://www.nhlbi.nih.gov/health/public/heart/hbp/dash/new_dash.pdf Last Reviewed Date 2016-04-13 Consumer Information Use and Disclaimer This information is not specific medical advice and does not replace information you receive from your health care provider. This is only a brief summary of general information. It does NOT include all information about conditions, illnesses, injuries, tests, procedures, treatments, therapies, discharge instructions or life-style choices that may apply to you. You must talk with your health care provider for complete information about your health and treatment options. This information should not be used to decide whether or not to accept your health care provider???s advice, instructions or recommendations. Only your health care provider has the knowledge and training to provide advice that is right for you. Copyright Copyright ?? 2019 [employer]. and its affiliates and/or licensors. All rights reserved. documented in this encounter Progress Notes * Carroll Self MD - 04/30/2019 9:30 AM CDT Reason for Visit: Coronary Artery Disease and Lipids History of Present Illness: Spencer Chaudhari is a pleasent 53-year-old male with a past medical history of CAD s/p KALEB to distal LM/LAD and proximal D1 (01/2019), mediastinal [place] s/p chemo and radiation therapy (1993), hypertension, hyperlipidemia, KIRBY, obesity who presents today for routine follow-up. Patient was here last 3 months ago. Down 6 pounds. Since then he has been doing fairly well with nonew complaints. He stays busy with work, ADLs and golfing but no regular exercise. Previously, patient was on a family vacation at [facility] when he started experiencing chest heaviness/pressure with radiation to his left shoulder and down both arms while at rest. He apparently had complaints of exertional chest discomfort, that improved at rest a few weeks prior but never thought it was secondary to his heart. While on vacation the chest pain become more prominent therefore presented to the nearest emergency department in [place]. Was found to have a non-STEMI. Left heart evaluation was done revealing a 75% distal left main disease and had and Impella assisted LM- LAD stenting and stenting of D1. Since then he has been doing remarkably well without any further chest pain/chest pressure. Denies shortness of breath at rest. Denies exertional dyspnea. No PND or orthopnea. No leg edema. No claudication. No palpitations. No dizziness, syncope or near-syncope. No major bleedingevents. Tolerating current medications and is taking as prescribed. Patient has no known history of significant valvular heart disease, arrhythmia, TIA, CVA, PE, DVT, diabetes mellitus or kidney disease. He quit smoking in 1990 but had only smoked for a total of 4 years. Has known KIRBY and has been compliant with his nightly CPAP therapy. 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 Denies any history of premature CAD. Labs: From inpatient stay - LDL 77, Hgb 13.8 Diagnostics: ?? Echo (2018) - EF 45-50%. Thickened valves but no significant valve disease. ?? Cath (01/14/2019) - awaiting actual cath films. From description sounds like 75% distal LM, 55% mid LAD, 90% D1, 50% LCx. S/p KALEB to distal LM/LAD and proximal D1 Recommendations and Plan: CAD/NSTEMI - had a minimal NSTEMI on presentation to OR, but required a complex intervention. No further angina. Reasonable to keep on DAPT for 1 year.Tolerating well with no major bleeding events. Continue high dose statin and metoprolol. Will continue with maximal medical therapy with ASA, statinand beta juanita along with risk factor modification. Echo showed a mildly reduced EF. Will obtain follow-up Echo after next appointment to revaluate. Ok to try Cialis. HTN- Blood pressure is well controlled on current antihypertensive regimen and tolerating well. Continue. HLD- Continue HI statin. Follow-up lipids. Has not been done yet. KIRBY- Patient is compliant with CPAP therapy. Continue nightly use. Obesity- 20 + lb weight loss over the next few months advised. Follow-up: We will plan on seeing patient back in 6 months. Obtain CBC, CMP, CPK and lipids in a few days. Advised to call the office if he has any problems or concerns in the mean time. Plan discussed with patient who voiced understanding. Medications: Current Outpatient Medications: ??? nitroglycerin 0.4 MG SL tablet, Place 1 tablet (0.4 mg total) under the tongue every 5 (five) minutes as needed for Chest Pain (For a maximum of 3 doses, If taking third dose contact 911.)., Disp: 25 tablet, Rfl: 0 ??? tadalafil (CIALIS) 20 MG tablet, Take 1 tablet (20 mg total) by mouth daily as needed for Erectile Dysfunction., Disp: , Rfl: ??? aspirin EC 81 MG tablet, Take 81 mg by mouth daily., Disp: , Rfl: ??? atorvastatin 80 MG tablet, Take 80 mg by mouth every evening., Disp: , Rfl: ??? Coenzyme Q10 (COQ-10) 100 MG Cap, Take 1 capsule by mouth daily., Disp: , Rfl: ??? metoprolol succinate ER 100 MG 24 hr tablet, Take 100 mg by mouth daily., Disp: , Rfl: ??? mometasone-formoterol (DULERA) 200-5 MCG/ACT Aerosol, Inhale 2 puffs into the lungs 2 (two) times daily., Disp: , Rfl: ??? ticagrelor (BRILINTA) 90 mg tablet, Take 90 mg by mouth 2 (two) times daily., Disp: , Rfl: Allergies Allergen Reactions ??? Celebrex [Celecoxib] Rash Past Medical History: Diagnosis Date ??? CAD (coronary artery disease) ??? Cancer (CMS/HCC) ??? Dyslipidemia ??? Essential hypertension ??? Myocardial infarction (CMS/HCC) 01/10/2019 ??? Sleep apnea Past Surgical History: Procedure Laterality Date ??? CARDIAC STENTS 01/14/2019 Social History Tobacco Use ??? Smoking status: Former Smoker Last attempt to quit: 07/1991 Years since quittin.8 ??? Smokeless tobacco: Former User Types: Chew Quit date: 1993 Substance Use Topics ??? Alcohol use: Yes Alcohol/week: 1.0 oz Types: 1 Glasses of wine per week Frequency: Monthly or less Comment: 2-3 per month ??? Drug use: No No family history on file. Family Status Relation Name Status ??? Mother Alive ??? Father Alive ??? Sister Alive ??? Brother Alive Review of Systems Respiratory: Negative. Negative for new or significant shortness of breath and wheezing. Cardiovascular: See HPINegative for chest pain, palpitations, orthopnea, claudication, leg swellingand PND. Gastrointestinal: Negative for nausea, vomiting and melena. Musculoskeletal: Positive for joint stiffness/pain. Neurological: Negative for dizziness. Endo/Heme/Allergies: Positive for easy bruising/bleeding. All other systems reviewed and are negative. Filed Vitals: 04/30/19 0933 BP: 120/76 Pulse: 73 Weight: 122.9 kg (271 lb) Height: 6' 2 (1.88 m) Body mass index is 34.79 kg/m??. Physical Exam Rate/Rhythm: regular rhythm and normal rate . Heart Sounds: normal heart sounds, normal S1 and normal S2 no gallop, no S3 sound, no S4 sound and no murmur. . PMI: PMI not displaced. Pulses: normal pulses Right Carotid pulses 2+, Left Carotid pulses 2+, Right Femoral pulses 2+, Left Femoral pulses 2+, Right DP pulses 2+, Left DP pulses 2+, negative for edema Constitutional: healthy appearance Overweight not distressed. . Neck: neck supple no JVD. . Pulmonary/Chest Wall: effort normal and breath sounds normal . HEENT: teeth/gums normal and oropharynx clear and moist. . Abdomen: no tenderness, no mass, no hepatomegaly, no splenomegaly, abdominal aorta not palpably enlarged and no abdominal aortic bruit. . Eyes: conjunctivae normal. Neurological: alert, oriented x 3 and appropriate for situation, . Skin: dry and warm no cyanosis and no clubbing. Musculoskeletal: no kyphosis Cardiovascular Comments: Diagnoses/Impression: 1. Coronary artery disease involving [place] coronary artery of [place] heart without angina pectorisCBC, AUTO, NO DIFF 2. Essential (primary) hypertension 3. Dyslipidemia 4. KIRBY on CPAP 5. Obesity (BMI 30.0-34.9) [place] Documentation Completed: Coronary Artery Disease Referring Provider: No ref. provider found PCP: CAROLE RAVI PA-C documented in this encounter Plan of Treatment Upcoming Encounters Date Type Department Care Team (Late st Contact Info) Description 08/31/2024 3:00 PM TRIMMER HELPER Office Visit [facility] [address] [place] [address] Carroll Self MD [facility]. [facility] [address] [place] [address] documented as of this encounter Visit Diagnoses Diagnosis Coronary artery disease involving [place] coronary artery of [place] heart without angina pectoris- Primary Essential (primary) hypertension Unspecified essential hypertension Dyslipidemia Other and unspecified hyperlipidemia KIRBY on CPAP Obstructive sleep apnea (adult) (pediatric) Obesity (BMI 30.0-34.9) Obesity, unspecified documented in this encounter Care Teams Machine Sander Relationship Specialty Start Date End Date Carole Ravi PA-C [address] [phone] PCP - General PHYSICIAN HEALTH MANAGEMENT CONSULTANT 01/26/19 Carroll Self MD [facility]. [facility] [address] [place] [address] Didier Lumber Loader CARDIOVASCULAR DISEASE 01/19/19 documented as of this encounter
--- OUTSIDE RECORDS SUMMARY | 2024-07-28 06:51 | XMS_ITS | Encounter Summary ---
Author Organization [facility] Address [address] [place] [address]. 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 [address] [address] documented as of this encounter Visit Diagnoses Not on filedocumented in this encounter Care Teams Bran Mixer Relationship Specialty Start Date End Date Carole Ravi PA-C [address] [phone] PCP - General PHYSICIAN FINANCIAL SERVICES AUDITOR 01/26/19 Carroll Self MD [facility]. [facility] [address] [place] [address] Didier Dance Hall Hostess CARDIOVASCULAR DISEASE 01/19/19 documented as of this encounter
--- OUTSIDE RECORDS SUMMARY | 2024-07-28 06:51 | XMS_ITS | Encounter Summary ---
Author Organization [facility] Address [address] [place] [address]. [place], [place] [address] [place] [address] Care Team Providers Care Photo Specialist Name Role Phone Carroll Self MD Unavailable [phone] Carole Ravi PA-C Primary Care Provider + [phone] Reason for Visit * Reason Comments Coronary Artery Disease Cardiomyopathy Hypertension Lipids Encounter Details Date Type Department Care Team (Late st Contact Info) Description 08/19/2023 9:30 AM INSTRUMENT ENGINEER [facility] [address] [place] [phone] Elodia Alex, LETITIA [address] [place] [address] Coronary Artery Disease; Cardiomyopathy; Hypertension; Lipids [...] 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 Not on file Not on file documented as of this encounter Last Filed Vital Signs Vital Sign Reading Time Taken Comments Blood Pressure 110/70 08/19/2023 9:11 AM INSTRUMENT ENGINEER Pulse 73 08/19/2023 9:11 AM INSTRUMENT ENGINEER Temperature - - Respiratory Rate - - Oxygen Saturation - - Inhaled Oxygen Concentration - - Weight 132 kg (291 lb) 08/19/2023 9:11 AM INSTRUMENT ENGINEER Height 188 cm (6' 2 ) 08/19/2023 9:11 AM INSTRUMENT ENGINEER Body Mass Index 37.36 08/19/2023 9:11 AM INSTRUMENT ENGINEER documented in this encounter Progress Notes * Elodia Alex, LETITIA - 08/19/2023 9:30 AM CST Reason for Visit: Coronary Artery Disease, Cardiomyopathy, Hypertension, and Lipids History of Present Illness: Spencer Chaudhari is a very pleasant 57-year-old male who a past medical history of CAD, 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 In January 2019 [place] when he developed worsening SOB/CP. Had been having mild GALLO for weeks prior. Emergently seen in [place] and was found to have a 75% distal left main. Discussion between CTS/cardiology and patient led to patient having impella assisted LM-LAD stenting and stenting of D1. Has been doing well since. Still with some heartburn after eating. Feels full, and that if he starts doing something active will have some chest discomfort. Doesn't happen other times. Eating smallermeals and walking after eating seems to help. No other new chest pain/pressure, SOB. No new edema. No problems with LH. Using CPAP without issues. Has a treadmill Has not been using recently. Planning on starting back up with it. Following with urology now for his ED. Was started on testosterone approximately 6 weeks ago. Some weight loss since his FRANCISCO. Labs: Lab Results Component Value Date/Time CHOL [...] - had initially during cardiac event in 2018, but most recent echo seems to show [...] BY MOUTH EVERY DAY, Disp: 90tablet, Rfl: 2 MOUNJARO 10 MG/0.5ML injection, Inject 10 mg into the skin every 7 days., Disp: , Rfl: nitroglycerin (NITROSTAT) 0.4 MG SL tablet, PLACE 1 TABLET (0.4 MG TOTAL) UNDER THE TONGUE EVERY 5 (FIVE) MINUTES NEEDED FOR CHEST PAIN. MAXIMUM 3 DOSES. THEN CALL 911, Disp: 25 tablet, Rfl: 3 rosuvastatin (CRESTOR) 40 MG tablet, TAKE 1 [...] EVERY DAY, Disp: 90 tablet, Rfl: 1 testosterone enanthate (DELATESTRYL) 200 MG/ML injection, Inject 0.5 mLs (100 mg total) into the muscle every 7 days., Disp: , Rfl: ticagrelor (BRILINTA) 60 MG tablet, TAKE 1 TABLET BY MOUTH TWICE A DAY, Disp: 180 tablet, Rfl: 2 Review of patient's allergies indicates: Allergen Reactions Lisinopril Cough Celebrex [Celecoxib] Rash Past Medical History: Diagnosis Date CAD (coronary artery disease) Cancer ([facility]/HCC) ([facility]) Dyslipidemia Essential hypertension Myocardial infarction ([facility]) 01/10/2019 Sleep apnea Past Surgical History: Procedure [...] Alive Brother Alive Review of Systems Constitutional: Positive for weight loss. Negative for recent unintentional weight gain and new or significant fatigue. HENT: Negative for new or significant hearing loss. Eyes: Negative for blurred vision and double vision. Respiratory: Negative for cough, new or significant shortness of breath and snoring. Cardiovascular: See HPI. Negative for chest pain (rare), palpitations and orthopnea. Gastrointestinal: Negative for heartburn, [...] systems reviewed and are negative. Filed Vitals: 08/19/23 0911 BP: 110/70 Pulse: 73 Weight: 132 kg (291 lb) Height: 1.88 m (6' 2 ) Body mass index is 37.36 kg/m??. Physical Exam Constitutional: Healthy appearance. No [...] Comments: Diagnoses/Impression: 1. Coronary artery disease involving [place] coronary artery of [place] heart without angina pectorisCBC, MANUAL DIFF COMPREHENSIVE METABOLIC PANEL LIPID PANEL CK (CPK) 2. Essential (primary) hypertension 3. Mixed hyperlipidemia LIPID PANEL 4. KIRBY on CPAP 5. Erectile dysfunction, unspecified erectile dysfunction type 6. Type 2 diabetes mellitus with other specified complication, unspecified whether termite renewal inspector insulin use ([facility]) ([facility]) HGB A1C Referring Provider: No ref. provider found PCP: CAROLE RAVI PA-C RUMENT ENGINEER documented in this encounter Plan of Treatment Upcoming Encounters Date Type Department Care Team (Late st Contact Info) Description 08/31/2024 3:00 PM INSTRUMENT ENGINEER [facility] [address] [place] [phone] Carroll Self MD Three [facility]. [place] [address] [place] [address] documented as of this encounter Results * (ABNORMAL) HGB A1C (02/17/2024 9:24 AM CDT) HGB A1C 6.1(H) <5.7 % 02/17/2024 10:54 AM CDT [facility] Comment: INCREASED RISK OF DIABETES <5.7% ?NON-DIABETES 5.7-6.4% INCREASED RISK FOR FUTURE DIABETES > OR = 6.5 CONSISTENT WITH DIABETES STANDARDS OF MEDICAL CARE IN DIABETES-2010 DIABETES CARE, 33(SUPP 1): S1-S61,2009 ESTIMATED AVG GLUCOSE 128 mg/dL 02/17/2024 10:54 AM CDT [facility] 02/17/2024 9:24 AM CDT Elodia Alex EMAIL CAMPAIGN SPECIALIST LABORATORY Final Result Performing Organization Address City/[facility]/ZIP Co de Phone Number [facility] [address] [place] [address], [place] [phone] * CK (CPK) (02/17/2024 9:24 AM CDT) CPK 150 39 - 308 U/L 02/17/2024 10:17 AM CDT [facility] 02/17/2024 9:24 AM CDT Elodia Alex EMAIL CAMPAIGN SPECIALIST LABORATORY Final Result Performing Organization Address City/[facility]/ZIP Co de Phone Number [facility] [address] [place] [address], [place] [phone] * LIPID PANEL (02/17/2024 9:24 AM CDT) CHOLESTEROL 95 <200.0 MG/DL 02/17/2024 10:17 AM CDT [facility] TRIGLYCERIDES 57 <150 MG/DL 02/17/2024 10:17 AM CDT [facility] HDL 47 >40.0 MG/DL 02/17/2024 10:17 AM CDT [facility] LDL (CALCULATED) 37 <100 MG/DL 02/17/20 10:17 AM CDT [facility] NON HDL CHOLESTEROL 48 <130 MG/DL 02/16 10:17 AM CDT [facility] CHOL/HDL RATIO 2.0 0.0 - 4.5 02/17/2024 10:17 AM CDT [facility] VLDL CALCULATION 11 5 - 55 MG/DL 02/17/2024 10:17 AM T [facility] LIPID INTERPRETATION 02/17/2024 10:17 AM CDT [facility] Comment: NIH CONCENSUS REPORT [...] ?HDL ?<40 ?--- ?LDL ? >=160 ?>=130 02/17/2024 9:24 AM CDT Elodia Alex EMAIL CAMPAIGN SPECIALIST LABORATORY Final Result [facility] [address] [place] [address], * (ABNORMAL) COMPREHENSIVE METABOLIC PANEL (02/17/2024 9:24 AM CDT) GLUCOSE 90 70 - 99 MG/DL 02/17/2024 10:17 AM CDT [facility] BUN 13 7 - 18 MG/DL 02/17/2024 10:17 AM CDT [facility] CREATININE S/P/B 1.30 0.7 - 1.3 MG/DL 02/17/2024 10:17 AM CDT [facility] SODIUM S/P/B 144 136 - 145 MMOL/L 02/17/2024 10:17 AM CDT [facility] POTASSIUM S/P/B 4.9 3.5 - 5.1 MMOL/L 02/17/2024 10:17 AM CDT [facility] CHLORIDE S/P/B 107 100 - 108 MMOL/L 02/17/2024 10:17 AM CDT [facility] CO2 32.5(H) 21 - 32 MMOL/L 02/17/2024 10:17 AM CDT [facility] CALCIUM S/P/B 9.1 8.5 - 10.1 MG/DL 02/17/2024 10:17 AM [facility] BILIRUBIN TOTAL S/P/B 0.7 0.2 - 1.2 MG/DL 02/17/2024 10:17 AM [facility] TOTAL PROTEIN S/P/B 7.1 6.4 - 8.2 G/DL 02/17/2024 10:17 AM [facility] ALBUMIN S/P/B 3.8 3.4 - 5.0 G/DL 02/17/2024 10:17 AM [facility] AST 21 15 - 37 U/L 02/17/2024 10:17 AM [facility] ALT 21 16 - 60 U/L 02/17/2024 10:17 AM [facility] ALKALINE PHOSPHATASE S/P/B 46(L) 50 - 136 U/L 02/17/2024 10:17 AM [facility] ANION GAP 4.5(L) 5 - 15 MMOL/L 02/17/2024 10:17 AM [facility] BUN CREATININE RATIO 10.0 6 - 26 02/17/2024 10:17 AM [facility] A/G RATIO 1.2 1.0 - 2.0 RATIO 02/17/2024 10:17 AM [facility] GFR ESTIMATE 64(L) >90 ML/MIN/1.7 3 M2 02/17/2024 10:17 AM [facility] Comment: NOTE: eGFR is not calculated for patients <18 years of age. This is an estimated GFR calculation using the new CKD EPI creatinine equation without race and so does not require a correction factor for race. This estimated GFR should not be used for calculating drug doses. 02/17/2024 9:24 AM CDT Elodia AMBROSIOP LABORATORY Final Result [facility] [address] [place] [address], * (ABNORMAL) CBC, MANUAL DIFF (02/17/2024 9:24 AM CDT) WBC 6.11 4.4 - 11.0 x10'3/uL 02/17/2024 9:55 AM CDT [facility] RBC 5.76 4.50 - 5.90 x10'6/uL 02/17/2024 9:55 AM CDT [facility] HGB 15.9 14.0 - 17.5 G/DL 02/17/2024 9:55 AM CDT [facility] HCT 50.1 41.5 - 50.4 % 02/17/2024 9:55 AM CDT [facility] MCV 87.0 80.0 - 96.0 FL 02/17/2024 9:55 AM CDT [facility] MCH 27.6 26.5 - 31.4 PG 02/17/2024 9:55 AM CDT [facility] MCHC 31.7(L) 31.9 - 34.8 G/DL 02/17/2024 9:55 AM CDT [facility] RDW 18.6(H) 12.3 - 14.3 % 02/17/2024 9:55 AM CDT [facility] PLT 162 151 - 353 x10'3/uL 02/17/2024 9:55 AM CDT [facility] MPV 10.6 9.7 - 11.9 FL 02/17/2024 9:55 AM CDT [facility] RBC MORPHOLOGY NORMAL 02/17/2024 9:55 AM CDT [facility] PLT MORPH. NORMAL 02/17/2024 9:55 AM CDT [facility] WBC MORPHOLOGY NORMAL 02/17/2024 9:55 AM CDT [facility] SEG NEUTROPHILS 69 42 - 72 % 10:19 AM CDT [facility] LYMPHOCYTES 20 15.8 - 45.0 % 02/17/2024 10:19 AM CDT [facility] MONOCYTES 10 5.7 - 12.5 % 02/17/2024 10:19 AM CDT [facility] EOSINOPHILS 1 0 - 5.6 % 02/17/2024 10:19 AM CDT [facility] ABS. NEUTROPHILS 4.22 1.40 - 6.00 x10'3/uL 02/17/2024 10:19 AM CDT [facility] ABS. LYMPHOCYTES 1.22 0.80 - 4.70 x10'3/uL 02/17/2024 10:19 AM CDT [facility] 02/17/2024 9:24 AM CDT Elodia Alex EMAIL CAMPAIGN SPECIALIST LABORATORY Final Result [facility] [address] [place] [address], documented in this encounter Visit Diagnoses Diagnosis Coronary artery disease involving [place] coronary artery of [place] heart without angina pectoris- Primary Essential (primary) hypertension Unspecified essential hypertension Mixed hyperlipidemia KIRBY on CPAP Obstructive sleep apnea (adult) (pediatric) Erectile dysfunction, unspecified erectile dysfunction type Type 2 diabetes mellitus with other specified complication, unspecified whether termite renewal inspector insulin use ([facility]) documented in this encounter Care Teams Photo Specialist Relationship Specialty Start Date End Date Carole Ravi PA-C [facility] [address] [place] [phone] PCP - General PHYSICIAN SUPERVISOR FABRICATION AND ASSEMBLY 01/26/19 Carroll Self MD Three [facility]. [address] [address] [place] [employer] Sanitizer CARDIOVASCULAR DISEASE 01/19/19 documented as of this encounter
--- OUTSIDE RECORDS SUMMARY | 2024-07-28 06:51 | XMS_ITS | Encounter Summary ---
Author Organization [facility] Address [address] [place] [address]. [place], [place] [address] [place] [address] Care Team Providers Care Cash Teller Name Role Phone Carroll Self MD Unavailable [phone] Carole Ravi PA-C Primary Care Provider + [phone] Encounter Details Date Type Department Care Team (Late st Contact Info) Description 02/11/2023 8:30 AM CDT - 02/11/2023 11:59 PM [facility] Hospital Encounter [facility] [address] [place] [address] Carroll Self MD Three [facility]. 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 lactobacillus capsule Take 1 capsule by mouth 2 (two) times daily with meals. SYMBICORT 160-4.5 MCG/ACT inhaler 2 (two) times a day. 04/25/2021 tadalafil (CIALIS) 20 MG tablet Take 1 tablet (20 mg total) by mouth daily as needed for Erectile Dysfunction. 10 tablet 1 01/09/2021 BRILINTA 60 MG tablet TAKE 1 TABLET BY MOUTH TWICE A DAY 180 tablet 1 09/25/2022 3 metoprolol succinate ER (TOPROL-XL) 100 MG 24 hr tablet TAKE 1 TABLET BY MOUTH EVERY DAY 90 tablet 1 09/25/2022 3 MOUNJARO 7.5 MG/0.5ML injection INJECT 7.5MG SUBCUTANEOUSLY ONCE WEEKLY 01/29/2023 4 nitroglycerin (NITROSTAT) 0.[address] 1 TABLET UNDER THE TONGUE EVERY 5 MINUTES, UP TO 3 DOSES NEEDED FOR CHEST PAIN 25 tablet 1 01/28/2023 3 rosuvastatin (CRESTOR) 40 MG tablet TAKE 1 TABLET BY MOUTH NIGHTLY AT BEDTIME 90 tablet 2 01/07/2023 4 telmisartan (MICARDIS) 40 MG tablet TAKE 1 TABLET BY MOUTH EVERY DAY 90 tablet 1 11/05/2022 3 documented as of this encounter Plan of Treatment Upcoming Encounters Date Type Department Care Team (Late st Contact Info) Description 08/31/2024 3:00 PM EAP COUNSELOR [facility] [address] [place] [address] Carroll Slef MD [facility]. [facility] [address] [place] [address] documented as of this encounter Procedures Procedure Name Priority Date/Time Associated Diagnosis Comments HEMOGLOBIN, GLYCOSYLATED Routine 02/11/2023 8:37 AM CDT Type 2 diabetes mellitus with other specified complication, unspecified whether terminal operator insulin use ([facility]) BASIC METABOLIC PANEL Routine 02/11/2023 8:37 AM CDT Coronary artery disease due to lipid rich plaque LIPID PANEL Routine 02/11/2023 8:37 AM CDT Coronary artery disease due to lipid rich plaque CBC, AUTO, NO DIFF Routine 02/11/2023 8: 37 AM CDT Coronary artery disease due to lipid rich plaque CK (CPK) Routine 02/11/2023 8:37 AM CDT Coronary artery disease due to lipid rich plaque documented in this encounter Results * CK (CPK) (02/11/2023 8:37 AM CDT) CPK 182 39 - 308 U/L 02/11/2023 9:06 AM CDT [facility] 02/11/2023 8:37 AM CDT Elodia DONG LABORATORY Final Result [facility] [address] [place] [address], * (ABNORMAL) HGB A1C (02/11/2023 8:37 AM CDT) HGB A1C 6.5(H) <5.7 % 02/11/2023 10:19 AM CDT [facility] Comment: INCREASED RISK OF DIABETES <5.7% ?NON-DIABETES 5.7-6.4% INCREASED RISK FOR FUTURE DIABETES > OR = 6.5 CONSISTENT WITH DIABETES STANDARDS OF MEDICAL CARE IN DIABETES-2010 DIABETES CARE, 33(SUPP 1): S1-S61,2010 ESTIMATED AVG GLUCOSE 140 mg/dL 02/11/2023 10:19 AM CDT [facility] 02/11/2023 8:37 AM CDT Elodia Alex MANAGER [facility] Final Result [facility] [address] [place] [address], * LIPID PANEL (02/11/2023 8:37 AM CDT) CHOLESTEROL 114 <200.0 MG/DL 02/11/2023 9:06 AM CDT [facility] TRIGLYCERIDES 83 <150 MG/DL 02/11/2023 9:06 AM T [facility] HDL 54 >40.0 MG/DL 02/11/2023 9:06 AM T [facility] LDL (CALCULATED) 43 <100 MG/DL 02/12/20 9:06 AM T [facility] NON HDL CHOLESTEROL 60 <130 MG/DL 02/11 9:06 AM T [facility] CHOL/HDL RATIO 2.1 0.0 - 4.5 02/11/2023 9:06 AM T [facility] VLDL CALCULATION 17 5 - 55 MG/DL 02/11/2023 9:06 AM [facility] LIPID INTERPRETATION 02/11/2023 9:06 AM T [facility] Comment: NIH CONCENSUS REPORT [...] ? >=160 ?>=130 02/11/2023 8:37 AM CDT us Elodia Alex MANAGER [facility] Final Result [facility] [address] [place] [address], * (ABNORMAL) CBC, AUTO, NO DIFF (02/11/2023 8:37 AM CDT) WBC 4.35(L) 4.4 - 11.0 x10'3/uL 02/11/2023 8:51 AM CDT [facility] RBC 4.61 4.50 - 5.90 x10'6/uL 02/11/2023 8:51 AM CDT [facility] HGB 13.2(L) 14.0 - 17.5 G/DL 02/11/2023 8:51 AM CDT [facility] HCT 41.4(L) 41.5 - 50.4 % 02/11/2023 8:51 AM CDT [facility] MCV 89.8 80.0 - 96.0 FL 02/11/2023 8:51 AM CDT [facility] MCH 28.6 26.5 - 31.4 PG 02/11/2023 8:51 AM CDT [facility] MCHC 31.9 31.9 - 34.8 G/DL 02/11/2023 8:51 AM CDT [facility] RDW 16.1(H) 12.3 - 14.3 % 02/11/2023 8:51 AM CDT [facility] PLT 163 151 - 353 x10'3/uL 02/11/2023 8:51 AM CDT [facility] MPV 10.5 9.7 - 11.9 FL 02/11/2023 8:51 AM CDT [facility] 02/11/2023 8:37 AM CDT us Elodia DONG LABORAT[facility] Final Result [facility] [address] [facility] [place] [address], [place] [phone] * (ABNORMAL) BASIC METABOLIC PANEL (02/11/2023 8:37 AM CDT) [facility] GLUCOSE 102(H) 70 - 99 MG/DL 02/11/2023 9:06 AM [facility] BUN 17 7 - 18 MG/DL 02/11/2023 9:06 AM [facility] CREATININE S/P/B 1.26 0.7 - 1.3 MG/DL 02/11/2023 9:06 AM [facility] SODIUM S/P/B 139 136 - 145 MMOL/L 02/11/2023 9:06 AM [facility] POTASSIUM S/P/B 4.2 3.5 - 5.1 MMOL/L 02/11/2023 9:06 AM [facility] CHLORIDE S/P/B 102 100 - 108 MMOL/L 02/11/2023 9:06 AM [facility] CO2 27.4 21 - 32 MMOL/L 02/11/2023 9:06 AM [facility] CALCIUM S/P/B 9.2 8.5 - 10.1 MG/DL 02/11/2023 9:06 AM [facility] ANION GAP 9.6 5 - 15 MMOL/L 02/11/2023 9:06 AM [facility] BUN CREATININE RATIO 13.5 6 - 26 02/11/2023 9:06 AM [facility] GFR ESTIMATE 67(L) >90 ML/MIN/1.7 3 M2 02/11/2023 9:06 AM [facility] Comment: NOTE: eGFR is not calculated for patients <18 years of age. This is an estimated GFR calculation using the new CKD EPI creatinine equation without race and so does not require a correction factor for race. This estimated GFR should not be used for calculating drug doses. 02/11/2023 8:37 AM CDT Elodia Alex MANAGER [facility] Final Result [facility] [address] [place] [address], documented in this encounter Visit Diagnoses Diagnosis Coronary artery disease due to lipid rich plaque Type 2 diabetes mellitus with other specified complication, unspecified whether terminal operator insulin use ([facility]) documented in this encounter Care Teams Cash Teller Relationship Specialty Start Date End Date Carole Ravi PA-C [facility] [address] [place] [phone] PCP - General PHYSICIAN RECORDS SPECIALIST 01/26/19 Carroll Self MD [facility]. [address] [address] [place] Hand Former Helper CARDIOVASCULAR DISEASE 01/19/19 documented as of this encounter
--- OUTSIDE RECORDS SUMMARY | 2024-07-28 06:51 | XMS_ITS | Encounter Summary ---
Author Organization [facility] Address [address] [place] [address]. 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 lactobacillus capsule Take 1 capsule by mouth 2 (two) times daily with meals. MISC NATURAL PRODUCTS OR Take by mouth daily. hepatacore MOUNJARO 10 MG/0.5ML injection Inject 10 mg into the skin every 7 days. 08/15/2023 nitroglycerin (NITROSTAT) 0.[address] 1 TABLET (0.4 MG TOTAL) UNDER THE TONGUE EVERY 5 (FIVE) MINUTES NEEDED FOR CHEST PAIN. MAXIMUM 3 DOSES. THEN CALL 911 25 tablet 3 01/29/2024 SYMBICORT 160-4.5 MCG/ACT inhaler 2 (two) times a day. 04/25/2021 tadalafil (CIALIS) 20 MG tablet Take 1 tablet (20 mg total) by mouth daily as needed for Erectile Dysfunction. 10 tablet 1 01/09/2021 testosterone enanthate (DELATESTRYL) 200 MG/ML injection Inject 0.5 mLs (100 mg total) into the muscle every 7 days. 07/31/2023 Vitamin D-Vitamin K (VITAMIN K2-VITAMIN D3 OR) Take by mouth daily. metoprolol succinate ER (TOPROL-XL) 100 MG 24 hr tablet take 1 tablet by mouth every day 90 tablet 1 10/16/2023 4 rosuvastatin (CRESTOR) 40 MG tablet take 1 tablet by mouth everyday at bedtime 90 tablet 1 10/16/2023 4 telmisartan (MICARDIS) 40 MG tablet take 1 tablet by mouth every day 90 tablet 1 10/29/2023 4 ticagrelor (BRILINTA) 60 MG tablet take 1 tablet by mouth twice a day 180 tablet 1 01/13/2024 4 documented as of this encounter Plan of Treatment Upcoming Encounters Date Type Department Care Team (Late st Contact Info) Description 08/31/2024 3:00 PM FUNCTIONAL SUPPORT ANALYST Office Visit [facility] [address] [place] [phone] Carroll Self MD Three [facility]. [address] [address] documented as of this encounter Procedures Procedure Name Priority Date/Time Associated Diagnosis Comments HEMOGLOBIN, GLYCOSYLATED Routine 02/17/2024 9:24 AM CDT Type 2 diabetes mellitus with other specified complication, unspecified whether regional intermodal truck driver insulin use ([facility]) COMPREHENSIVE METABOLIC PANEL Routine 02/17/2024 9:24 AM CDT Coronary artery disease involving pe[place] coronary artery of pe[place] heart without angina pectoris LIPID PANEL Routine 02/17/2024 9:24 AM CDT Coronary artery disease involving [place] coronary artery of [place] heart without angina pectoris Mixed hyperlipidemia HC BLOOD COUNT MAN DIFF WBC Routine 02/17/2024 9:24 AM CDT Coronary artery disease involving pe[place] coronary artery of [place] heart without angina pectoris CK (CPK) Routine 02/17/2024 9:24 AM CDT Coronary artery disease involving pe[place] coronary artery of pe[place] heart without angina pectoris documented in this encounter Results * (ABNORMAL) HGB A1C (02/17/2024 9:24 AM CDT) HGB A1C 6.1(H) <5.7 % 02/17/2024 10:54 AM CDT [facility] Comment: INCREASED RISK OF DIABETES <5.7% ?NON-DIABETES 5.7-6.4% INCREASED RISK FOR FUTURE DIABETES > OR = 6.5 CONSISTENT WITH DIABETES STANDARDS OF MEDICAL CARE IN DIABETES-2010 DIABETES CARE, 33(SUPP 1): S1-S61,2010 ESTIMATED AVG GLUCOSE 128 mg/dL 02/17/2024 10:54 AM CDT [facility] 02/17/2024 9:24 AM CDT Elodia Alex CASE LOADER OPERATOR LABORATORY Final Result [facility] [address] [place] [address], [place] [phone] * CK (CPK) (02/17/2024 9:24 AM CDT) CPK 150 39 - 308 U/L 02/17/2024 10:17 AM CDT [facility] 02/17/2024 9:24 AM CDT Elodia Hurd Isai CASE LOADER OPERATOR LABORATORY Final Result Performing Organization Address [facility]/ZIP Co de Phone Number [facility] [address] [place] [address], [place] [phone] * LIPID PANEL (02/17/2024 9:24 AM CDT) CHOLESTEROL 95 <200.0 MG/DL 02/17/2024 10:17 AM CDT [facility] TRIGLYCERIDES 57 <150 MG/DL 02/17/2024 10:17 AM CDT [facility] HDL 47 >40.0 MG/DL 02/17/2024 10:17 AM CDT [facility] LDL (CALCULATED) 37 <100 MG/DL 02/17/20 10:17 AM CDT [facility] NON HDL CHOLESTEROL 48 <130 MG/DL 02/16 10:17 AM CDT [facility] CHOL/HDL RATIO 2.0 0.0 - 4.5 02/17/2024 10:17 AM CDT [facility] VLDL CALCULATION 11 5 - 55 MG/DL 02/17/2024 10:17 AM CDT [facility] LIPID INTERPRETATION 02/17/2024 10:17 AM CDT [facility] () [facility] Comment: NIH CONCENSUS REPORT [...] ? >=160 ?>=130 02/17/2024 9:24 AM CDT us Elodia Alex CASE LOADER OPERATOR LABORATORY Final Result [facility] [address] [place] [address], * (ABNORMAL) COMPREHENSIVE METABOLIC PANEL (02/17/2024 9:24 AM CDT) [facility] GLUCOSE 90 70 - 99 MG/DL 02/17/2024 10:17 AM CDT [facility] BUN 13 7 - 18 MG/DL 02/17/2024 10:17 AM CDT [facility] CREATININE S/P/B 1.30 0.7 - 1.3 MG/DL 02/17/2024 10:17 AM CDT [facility] SODIUM S/P/B 144 136 - 145 MMOL/L 02/17/2024 10:17 AM CDT [facility] POTASSIUM S/P/B 4.9 3.5 - 5.1 MMOL/L 02/17/2024 10:17 AM CDT [facility] CHLORIDE S/P/B 107 100 - 108 MMOL/L 02/17/2024 10:17 AM CDT [facility] CO2 32.5(H) 21 - 32 MMOL/L 02/17/2024 10:17 AM T [facility] CALCIUM S/P/B 9.1 8.5 - 10.1 MG/DL 02/17/2024 10:17 AM T [facility] BILIRUBIN TOTAL S/P/B 0.7 0.2 - 1.2 MG/DL 02/17/2024 10:17 AM CDT [facility] TOTAL PROTEIN S/P/B 7.1 6.4 - 8.2 G/DL 02/17/2024 10:17 AM T [facility] ALBUMIN S/P/B 3.8 3.4 - 5.0 G/DL 02/17/2024 10:17 AM T [facility] AST 21 15 - 37 U/L 02/17/2024 10:17 AM CDT [facility] ALT 21 16 - 60 U/L 02/17/2024 10:17 AM T [facility] ALKALINE PHOSPHATASE S/P/B 46(L) 50 - 136 U/L 02/17/2024 10:17 AM CDT [facility] ANION GAP 4.5(L) 5 - 15 MMOL/L 02/17/2024 10:17 AM T [facility] BUN CREATININE RATIO 10.0 6 - 26 02/17/2024 10:17 AM T [facility] A/G RATIO 1.2 1.0 - 2.0 RATIO 02/17/2024 10:17 AM T [facility] GFR ESTIMATE 64(L) >90 ML/MIN/1.7 3 M2 02/17/2024 10:17 AM T [facility] Comment: NOTE: eGFR is not calculated for patients <18 years of age. This is an estimated GFR calculation using the new CKD EPI creatinine equation without race and so does not require a correction factor for race. This estimated GFR should not be used for calculating drug doses. 02/17/2024 9:24 AM CDT Elodia DONG LABORATORY Final Result [facility] [address] [place] [address], * (ABNORMAL) CBC, MANUAL DIFF (02/17/2024 9:24 AM CDT) WBC 6.11 4.4 - 11.0 x10'3/uL 02/17/2024 9:55 AM CDT [facility] RBC 5.76 4.50 - 5.90 x10'6/uL 02/17/2024 9:55 AM CDT [facility] HGB 15.9 14.0 - 17.5 G/DL 02/17/2024 9:55 AM CDT [facility] HCT 50.1 41.5 - 50.4 % 02/17/2024 9:55 AM CDT [facility] MCV 87.0 80.0 - 96.0 FL 02/17/2024 9:55 AM CDT [facility] MCH 27.6 26.5 - 31.4 PG 02/17/2024 9:55 AM CDT [facility] MCHC 31.7(L) 31.9 - 34.8 G/DL 02/17/2024 9:55 AM CDT [facility] RDW 18.6(H) 12.3 - 14.3 % 02/17/2024 9:55 AM CDT [facility] PLT 162 151 - 353 x10'3/uL 02/17/2024 9:55 AM CDT [facility] MPV 10.6 9.7 - 11.9 FL 02/17/2024 9:55 AM CDT [facility] RBC MORPHOLOGY NORMAL 02/17/2024 9:55 AM CDT [facility] PLT MORPH. NORMAL 02/17/2024 9:55 AM CDT [facility] WBC MORPHOLOGY NORMAL 02/17/2024 9:55 AM CDT [facility] SEG NEUTROPHILS 69 42 - 72 % 10:19 AM CDT [facility] LYMPHOCYTES 20 15.8 - 45.0 % 02/17/2024 10:19 AM CDT [facility] MONOCYTES 10 5.7 - 12.5 % 02/17/2024 10:19 AM CDT [facility] EOSINOPHILS 1 0 - 5.6 % 02/17/2024 10:19 AM CDT [facility] ABS. NEUTROPHILS 4.22 1.40 - 6.00 x10'3/uL 02/17/2024 10:19 AM CDT [facility] ABS. LYMPHOCYTES 1.22 0.80 - 4.70 x10'3/uL 02/17/2024 10:19 AM CDT [facility] 02/17/2024 9:24 AM CDT Elodia AMBROSIOP LABORATORY Final Result Performing Organization Address City/State/[facility] Co de Phone Number [facility] [address] [place] [phone], documented in this encounter Visit Diagnoses Diagnosis Coronary artery disease involving pe[place] coronary artery of pe[place] heart without angina pectoris Mixed hyperlipidemia Type 2 diabetes mellitus with other specified complication, unspecified whether regional intermodal truck driver insulin use ([facility]) documented in this encounter Care Teams Reconnaissance Man Relationship Specialty Start Date End Date Carole Ravi PA-C FAMILY MEDICINE [address] [place] [phone] PCP - General PHYSICIAN SENIOR DEVOPS ENGINEER 01/26/19 Carroll Self MD [facility]. [facility] [address] [place] [address] [place] Design Drafter CARDIOVASCULAR DISEASE 01/19/19 documented as of this encounter
--- OUTSIDE RECORDS SUMMARY | 2024-07-28 06:51 | XMS_ITS | Encounter Summary ---
Author Organization [facility] Address [address] [place] [address]. [place], [place] [address] [place] [address] Care Team Providers Care Network Systems Engineer Name Role Phone Carroll Self MD Unavailable [phone] Carole Ravi PA-C Primary Care Provider + [phone] Encounter Details Date Type Department Care Team (Late st Contact Info) Description 01/22/2022 Orders Only [facility] [place] [address] Carroll Self MD [facility]. 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 Unable to assess 01/22/2022 1:46 PM CDT documented as of this encounter Plan of Treatment Upcoming Encounters Date Type Department Care Team (Late st Contact Info) Description 08/31/2024 3:00 PM INCOMING INSPECTOR [facility] [address] [place] [phone] Carroll Self MD Three [facility]. [address] [place] [address] documented as of this encounter Visit Diagnoses Diagnosis Essential hypertension- Primary Unspecified essential hypertension Coronary artery disease involving ak chin coronary artery of [place] heart without angina pectoris Dyslipidemia Other and unspecified hyperlipidemia Essential (primary) hypertension Unspecified essential hypertension documented in this encounter Care Teams Network Systems Engineer Relationship Specialty Start Date End Date Carole Ravi PA-C [address] [phone] PCP - General PHYSICIAN BOBBIN WINDER TENDER 01/26/19 Carroll Self MD Three [facility]. [address] [place] [address] [place] Slicing Machine Operator/Tender CARDIOVASCULAR DISEASE 01/19/19 documented as of this encounter
--- OUTSIDE RECORDS SUMMARY | 2024-07-28 06:51 | XMS_ITS | Encounter Summary ---
Author Organization [facility] Address [address] [place] [address]. 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 Unable to assess 08/13/2022 9:53 AM FIRE ALARM REPAIRER documented as of this encounter Plan of Treatment Upcoming Encounters Date Type Department Care Team (Late Contact Info) Description 08/31/2024 3:00 PM FIRE ALARM REPAIRER [facility] [address] [place] [phone] Carroll Self MD Three [facility]. [address] [address] documented as of this encounter Visit Diagnoses Not on filedocumented in this encounter Care Teams Balance Truing Inspector Relationship Specialty Start Date End Date Carole Ravi PA-C FAMILY MEDICINE [address] [place] [phone] PCP - General PHYSICIAN TELEPHONE COLLECTOR 01/26/19 Carroll Self MD Three [facility]. [address] [address] [place]ier Feeder Driver CARDIOVASCULAR DISEASE 01/19/19 documented as of this encounter
--- OUTSIDE RECORDS SUMMARY | 2024-07-28 06:51 | XMS_ITS | Encounter Summary ---
Author Organization [facility] Address [address] [place] [address]. [place], [place] [id number] [place] [id number] Care Team Providers Care Patient Intake Coordinator Name Role Phone Carroll Self MD Unavailable [phone] Carole Ravi PA-C Primary Care Provider + [phone] Reason for Referral * Imaging (Routine) - Closed Specialty Diagnoses / Procedures Referred By Contjamee t Referred To Contact RADIOLOGY Diagnoses Ischemic cardiomyopathy Procedures USE ECHOCARDIOGRAM Carroll Self MD [facility]. [address] [address] Phone: tel: fax: Referral ID Status Reason Start Date Expiration Date Visits Re quested Visits Authorized [id number] Closed 05/19/2020 06/19/2021 1 1 Reason for Visit * Reason Comments Coronary Artery Disease Cardiomyopathy Hypertension Lipids Encounter Details Date Type Department Care Team (Late st Contact Info) Description 05/19/2020 11:15 AM CDT [facility] [address] [place] [phone] Carroll Self MD [address] [phone] Coronary Artery Disease; Cardiomyopathy; Hypertension; Lipids Social [...] 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 Unable to assess 05/19/2020 3:11 PM CDT documented as of this encounter Last Filed Vital Signs Vital Sign Reading Time Taken Comments Blood Pressure 136/90 05/19/2020 11:20 AM CDT Pulse 70 05/19/2020 11:20 AM CDT Temperature - - Respiratory Rate - - Oxygen Saturation - - Inhaled Oxygen Concentration - - Weight 129.3 kg (285 lb) 05/19/2020 11:20 AM CDT Height 188 cm (6' 2 ) 05/19/2020 11:20 AM CDT Body Mass Index 36.59 05/19/2020 11:20 AM CDT documented in this encounter Patient Instructions * Patient Instructions* Kia Arnoldo - 05/19/2020 11:15 AM CDT Images from the original note were not included. Patient Education Patient Education Coronary Heart Disease The Basics Written by the doctors and editors at [facility], [place] What is coronary artery disease???--??Coronary artery disease is a condition that puts you at risk for heart attack and other forms of heart disease. In people who have coronary artery disease, the arteries that supply blood to the heart get clogged with fatty deposits (figure 1). Other names for this disease are coronary heart disease or just heart disease. What are the symptoms of coronary artery disease???--??Many people with coronary artery disease have no symptoms. For those who do, the most common symptoms usually happen with exercise. They can include: ?? Pain, pressure, or discomfort in the center of the chest ?? Pain, tingling, or discomfort in other parts of the upper body - This might include the arms, back, neck, jaw, or stomach. ?? Feeling short of breath What are the symptoms of a heart attack???--??The first symptom of coronary artery disease can be aheart attack (figure 2). That's why it is so important to know how to spot a heart attack. The symptoms of a heart attack can include: ?? Pain, pressure, or discomfort in the center of the chest ?? Pain, tingling, or discomfort in other parts of the upper body, including the arms, back, neck, jaw, or stomach ?? Shortness of breath ?? Nausea, vomiting, burping, or heartburn ?? Sweating or having cold, clammy skin ?? A racing or uneven heartbeat ?? Feeling dizzy or lightheaded If these symptoms last more than 10 minutes or they keep coming and going, call for an ambulance (in the [place] and [place], dial 9-1-1) right away. Do not try to get to the hospital on your own. As mentioned above, some people with coronary artery disease have chest pain even when they are nothaving a heart attack. This is most likely to happen when they are walking, going up stairs, or moving around. But if you have chest pain that is new or different than pain you have had before, you should see a doctor right away. Is there a test for coronary artery disease???--??Yes. If your doctor or nurse thinks you might have coronary artery disease, he or she might order blood tests and one or more of these tests: ?? An electrocardiogram ( ECG ) - This test measures the electrical activity in your heart. ?? A stress test - During a stress test, which is also called an exercise test, you might be asked to run or walk on a treadmill while you also have an ECG. Physical activity increases the heart's need for blood. This test helps doctors see if the heart is getting enough blood. If you cannot walk or run, your doctor might do this test by giving you a medicine to make your heart pump faster. ?? An echocardiogram - This test uses sound waves to create an image of your heart as it beats. ?? Cardiac catheterization (also called cardiac cath ) - During this test, the doctor puts a thin tube into a blood vessel in your leg or arm. Then he or she moves the tube up to your heart. Next, the doctor puts a dye that shows up on X- ray into the tube. This part of the test is called coronaryangiography. It can show whether any of the arteries in your heart are clogged. How is coronary artery disease treated???--??The main treatments for coronary artery disease are: ?? Lifestyle changes - Here are some things you can do to reduce your risk of heart attack and : ? Quit smoking, if you smoke. ? Eat lots of fruits, vegetables, and foods with a lot of fiber. Avoid foods that have a lot of sugar. ? Walk or do some form of physically activity on most days of the week. ? Lose weight, if you are overweight. ?? Medicines - The medicines to treat heart disease are very important. Some medicines lower your risk of heart attacks and can help you live longer. But you must take them every day, as directed. Medicines your doctor might prescribe include: ? Medicines called statins, which lower cholesterol ? Medicines to lower blood pressure ? Aspirin or other medicines that help prevent blood clots ? Medicines to treat diabetes People who have chest pain caused by coronary artery disease (called angina ) can also get medicines to relive their pain. These medicines might include nitrates, beta blockers, and others. Some people with coronary artery disease can also have: ?? A stent procedure - During this procedure, the doctor puts a thin plastic tube into the blocked artery, and uses a tiny balloon to open the blockage. Then the doctor leaves a tiny mesh tube calleda stent inside the artery to hold it open. ?? Bypass surgery (also known as coronary artery bypass grafting or CABG) - During bypass surgery, the doctor removes a piece of blood vessel from another part of the body. Then he or she reattaches the blood vessel above and below the area that is clogged. This re-routes blood around the clog and allows it to get to the part of the heart that was not getting blood (figure 3). If your doctor recommends stenting or bypass surgery, ask these questions: ?? What are the benefits of this procedure for me? Will the procedure help me live longer? Will it reduce my chance of having a heart attack? Will I feel better if I have this procedure? ?? What are the risks of the procedure? ?? What happens if I don't have this procedure? All topics are updated as new evidence becomes available and our peer review process is complete. This topic retrieved from [employer] on: Jan 28, 2020. Topic 97384 Version 22.0 Release: 28.3.2 - C28.250 ?2019??[employer] and/or its affiliates.??All rights reserved. figure 1: Coronary heart disease In people with coronary heart disease, the coronary arteries get clogged with fatty deposits calledplaques. Graphic 30004 Version 5.0 figure 2: Heart attack symptoms This picture shows the main symptoms of a heart attack. People who are having a heart attack often have only some of these symptoms. The pain, pressure, and discomfort caused by a heart attack mostlyaffect the left side of the body (shown in darker red) but can also affect the right. If you think you are having a heart attack, call 9--1 for an ambulance. Do not try to get yourself to the hospital. Graphic 35336 Version 1.0 figure 3: Coronary artery bypass graft surgery During coronary artery bypass surgery, the surgeon removes a piece of blood vessel from the leg, chest, arm, or belly. Then the surgeon uses that piece of blood vessel (called a graft ) to reroute blood around the blocked artery. The surgery is called bypass surgery because it bypasses the blockage. Some people have more than 1 blocked artery bypassed. In this picture, the graft came from a vein in the leg called the saphenous vein. But grafts can come from other places, too. Graphic 65713 Version 5.0 Consumer Information Use and Disclaimer This information [...] or not to accept your health care provider's advice, instructions or recommendations. Only your health care provider has the knowledge and training to provide advice that is right for you.The use of [employer] content is governed by the [employer] Terms of Use. ??2020 [employer]. All rights reserved. Copyright ?2019??[employer]. and/or its affiliates.??All rights reserved. documented in this encounter Progress Notes * LAZARO Parnell - 05/19/2020 11:15 AM CDTAddended by: PAU KANG on: 05/19/2020 03:18 PM Modules accepted: Orders * Carroll Self MD - 05/19/2020 11:15 AM CDT Reason for Visit: Coronary Artery Disease, Cardiomyopathy, Hypertension, and Lipids History of Present Illness: Spencer Chaudhari is a 54-year-old male with a past medical history of hyperlipidemia and coronary artery disease here today for follow up of CAD. In January 2019 was on a family vacation at [employer] in [place] when he developed worsening SOB/CP. Had been having mild GALLO for weeks prior. Emergently seen in [place] and was found to have a 75% distal left main. Discussion between CTS/cardiology and patient led to patient having impella assisted LM-LAD stenting and stenting of D1. Has been doing okay. Working from home. States he does have occasional exertional chest pain only when he over does it . Does not happen every time, and has not used NTG. No SOB/GALLO. No palpitations. Tolerating meds well. Labs: Last LDL from hospital stay last year - new labs pending. Data Reviewed: Echo (2019) - EF 45-50%. Thickened valves but no significant valve disease. Cath (01/14/2019) - awaiting actual cath films. From description sounds like 75% distal LM, 55% mid LAD, 90% D1, 50% LCx. S/p KALEB to distal LM/LAD and proximal D1 Recommendations and Plan: CAD/NSTEMI - had a minimal NSTEMI on presentation to [place], but also had complex intervention. Reasonable to keep on DAPT for now unless has significant bleeding/bruising. Continue high dose statin, metoprolol. HLP - as above regarding statin. Have given order for new labs. HTN - BPs at home regularly elevated. Will add telmisartan (was on prior to CA) and see how home BPs do. Labs pending. ICM - echo pending to see how EF is doing. No signs of CHF currently. Follow up in 6 months or sooner if needed. Medications: Current Outpatient Medications: ??? aspirin EC 81 MG tablet, Take 81 mg by mouth daily., Disp: , Rfl: ??? atorvastatin 80 MG tablet, Take 1 tablet (80 mg total) by mouth every evening., Disp: 90 tablet, Rfl: 1 ??? metoprolol succinate ER 100 MG 24 hr tablet, Take 1 tablet (100 mg total) by mouth daily., Disp: 90 tablet, Rfl: 1 ??? mometasone-formoterol (DULERA) 200-5 MCG/ACT Aerosol, Inhale 2 puffs into the lungs 2 (two) times daily., Disp: , Rfl: ??? nitroglycerin 0.4 MG SL tablet, Place 1 tablet (0.4 mg total) under the tongue every 5 (five) minutes as needed for Chest Pain (For a maximum of 3 doses, If taking third dose contact 911.)., Disp: 25 tablet, Rfl: 1 ??? tadalafil (CIALIS) 20 MG tablet, Take 1 tablet (20 mg total) by mouth daily as needed for Erectile Dysfunction., Disp: , Rfl: ??? telmisartan 40 MG tablet, Take 1 tablet (40 mg total) by mouth daily., Disp: 30 tablet, Rfl: 5 ??? ticagrelor (BRILINTA) 90 mg tablet, Take 1 tablet (90 mg total) by mouth 2 (two) times daily., Disp: 180 tablet, Rfl: 1 Allergies Allergen Reactions ??? Celebrex [Celecoxib] Rash Past Medical History: Diagnosis Date ??? CAD (coronary artery disease) ??? Cancer (CMS/HCC) ??? Dyslipidemia ??? Essential hypertension ??? Myocardial infarction (CMS/HCC) 01/10/2019 ??? Sleep apnea Past Surgical History: Procedure Laterality Date ??? CARDIAC STENTS 01/14/2019 Social History Tobacco Use ??? Smoking status: Former Smoker Quit date: 07/1991 Years since quittin.8 ??? Smokeless tobacco: [...] and snoring. Cardiovascular: See HPI. Negative for palpitations and orthopnea. Gastrointestinal: Negative for blood in stool and melena. Genitourinary: Negative for dysuria. Musculoskeletal: Negative for myalgias and new or worsening joint stiffness/pain. Skin: Negative for rash. Neurological: Negative for tingling/numbness and focal weakness. Endo/Heme/Allergies: Negative for new or significant bruising/bleeding and polydipsia. Psychiatric/Behavioral: Negative for depression and new or significant memory loss. Filed Vitals: 05/19/20 1120 BP: 136/90 Pulse: 70 Weight: 129.3 kg (285 lb) Height: 6' 2 (1.88 m) Body mass index is 36.59 kg/m??. Physical Exam Constitutional: No distress. HENT: Eyes: Conjunctivae normal. Neck: Normal range of motion. Neck supple. No JVD. Pulmonary: Effort normal. Breath sounds normal. Abdomen: Abdomen soft. Bowel sounds normal. No distension. No tenderness. Neurological: Alert. Oriented x 3. Intact cranial nerves. Skin: Dry. Warm. Musculoskeletal: Normal ROM. Cardiovascular: Rate: Regular rhythm and Normal rate. PMI: Pulses: Right Carotid pulses 2+, Left Carotid pulses 2+, Right DP pulses 2+, Left DP pulses 2+, Edema left: 0. , Edema Right: 0. , Heart Sounds: Normal heart sounds. Normal S1 and Normal S2 No S3 sound. No S4 sound and No murmur. Cardiovascular Comments: Diagnoses/Impression: 1. Coronary artery disease involving circle coronary artery of circle heart without angina pectoris 2. Essential (primary) hypertension 3. Dyslipidemia 4. Ischemic cardiomyopathy [place] Documentation Completed: Coronary Artery Disease Referring Provider: No ref. provider found PCP: CAROLE RAVI PA-C documented in this encounter Plan of Treatment Upcoming Encounters Date Type Department Care Team (Late st Contact Info) Description 08/31/2024 3:00 PM DEBURRER MACHINE Office Visit [facility] [address] [place] [phone] Carroll [facility] [address] [place] [address] documented as of this encounter Results * (ABNORMAL) CBC, AUTO, NO DIFF (07/13/2020 9:36 AM DEBURRER MACHINE) WBC 5.0 4.4 - 11.0 x10'3/uL 07/13/2020 10:31 AM [facility] RBC 4.70 4.50 - 5.90 x10'6/uL 07/13/2020 10:31 AM [facility] HGB 14.0 14.0 - 17.5 G/DL 07/13/2020 10:31 AM [facility] HCT 43.3 41.5 - 50.4 % 07/13/2020 10:31 AM [facility] MCV 92.1 80.0 - 96.0 FL 07/13/2020 10:31 AM [facility] MCH 29.8 26.5 - 31.4 PG 07/13/2020 10:31 AM [facility] MCHC 32.3 31.9 - 34.8 G/DL 07/13/2020 10:31 AM [facility] RDW 14.5(H) 12.3 - 14.3 % 07/13/2020 10:31 AM [facility] PLT 185 151 - 353 x10'3/uL 07/13/2020 10:31 AM [facility] MPV 10.8 9.7 - 11.9 FL 07/13/2020 10:31 AM [facility] 07/13/2020 9:36 AM DEBURRER MACHINE us Carroll Self MD LABORATORY Final Resul t [facility] [address] [place] [address], [place] [phone] * (ABNORMAL) COMPREHENSIVE METABOLIC PANEL (07/13/2020 9:36 AM DEBURRER MACHINE) GLUCOSE 104(H) 70 - 99 MG/DL 07/13/2020 10:47 AM [facility] BUN 14 7 - 18 MG/DL 07/13/2020 10:47 AM [facility] CREATININE S/P/B 1.13 0.7 - 1.3 MG/DL 07/13/2020 10:47 AM [facility] SODIUM S/P/B 138 136 - 145 MMOL/L 07/13/2020 10:47 AM [facility] POTASSIUM S/P/B 4.4 3.5 - 5.1 MMOL/L 07/13/2020 10:47 AM [facility] CHLORIDE S/P/B 102 100 - 108 MMOL/L 07/13/2020 10:47 AM [facility] CO2 32.5(H) 21 - 32 MMOL/L 07/13/2020 10:47 AM [facility] CALCIUM S/P/B 8.8 8.5 - 10.1 MG/DL 07/13/2020 10:47 AM [facility] BILIRUBIN TOTAL S/P/B 0.7 0.2 - 1.2 MG/DL 07/13/2020 10:47 AM [facility] TOTAL PROTEIN S/P/B 7.4 6.4 - 8.2 G/DL 07/13/2020 10:47 AM [facility] ALBUMIN S/P/B 3.8 3.4 - 5.0 G/DL 07/13/2020 10:47 AM [facility] AST 20 15 - 37 U/L 07/13/2020 10:47 AM [facility] ALT 33 16 - 60 U/L 07/13/2020 10:47 AM [facility] ALKALINE PHOSPHATASE S/P/B 61 50 - 136 U/L 07/13/2020 10:47 AM [facility] ANION GAP 3.5(L) 5 - 15 MMOL/L 07/13/2020 10:47 AM [facility] BUN CREATININE RATIO 12.4 6 - 26 07/13/2020 10:47 AM [facility] A/G RATIO 1.1 1.0 - 2.0 RATIO 07/13/2020 10:47 AM [facility] EGFR NON-AFR. AMER. 74(L) >90 ML/MIN/1.7 3 M2 07/13/2020 10:47 AM [facility] EGFR AFR. AMER. 86(L) >90 ML/MIN/1.7 3 M2 07/13/2020 10:47 AM [facility] Comment: NOTE: eGFR is not calculated for patients <18 years of age. This is an estimated GFR (CKD EPI) and should not be used for calculating drug doses. 07/13/2020 9:36 AM DEBURRER MACHINE us Carroll Self MD LABORATORY Final Resul t [facility] [address] [place] [address], [place] [phone] * CK (CPK) (07/13/2020 9:36 AM DEBURRER MACHINE) CPK 108 39 - 308 U/L 07/13/2020 10:47 AM [facility] 07/13/2020 9:36 AM DEBURRER MACHINE aCrroll Self MD LABORATORY Final Resul t [facility] [address] [place] [address], * LIPID PANEL (07/13/2020 9:36 AM DEBURRER MACHINE) CHOLESTEROL 112 <200.0 MG/DL 07/13/2020 10:47 AM [facility] TRIGLYCERIDES 84 <150 MG/DL 07/13/2020 10:47 AM [facility] HDL 52 >40.0 MG/DL 07/13/2020 10:47 AM [facility] LDL (CALCULATED) 43 <100 MG/DL 07/13/20 20 10:47 AM [facility] NON HDL CHOLESTEROL 60 <130 MG/DL 07/13 10:47 AM [facility] CHOL/HDL RATIO 2.2 0.0 - 4.5 07/13/2020 10:47 AM [facility] VLDL CALCULATION 17 5 - 55 MG/DL 07/13/2020 10:47 AM [facility] LIPID INTERPRETATION 07/13/2020 10:47 AM [facility] Comment: [facility] REPORT RECOMMENDATIONS: ?ADULT ?CHILD ??LOW RISK: ?CHOLESTEROL ? <200 ? <170 ?TRIGLYCERIDE ?<150 ?--- ?HDL ? >=60 ?--- ?LDL ? <100 ? <110 ??BORDERLINE: ?CHOLESTEROL ? 200-239 ?? 170-199 ?TRIGLYCERIDE ?150-199 ? --- ?HDL ?40-59 ?--- ?LDL ? 100-159 ?? 110-129 ??HIGH RISK: ?CHOLESTEROL ? >=240 ?>=200 ?TRIGLYCERIDE ?>=200 ? --- ?HDL ?<40 ?--- ?LDL ? >=160 ?>=130 07/13/2020 9:36 AM DEBURRER MACHINE us Carroll Self MD LABORATORY Final Resul t [facility] [address] [place] [address], * USE ECHOCARDIOGRAM (07/13/2020 9:12 AM DEBURRER MACHINE) Anatomical Region Laterality Modality Cardiac Ultrasound us Carroll Self MD ECHO Final Resul t documented in this encounter Visit Diagnoses Diagnosis Coronary artery disease involving circle coronary artery of circle heart without angina pectoris- Primary Essential (primary) hypertension Unspecified essential hypertension Dyslipidemia Other and unspecified hyperlipidemia Ischemic cardiomyopathy Other specified forms of chronic ischemic heart disease documented in this encounter Care Teams Patient Intake Coordinator Relationship Specialty Start Date End Date Carole Ravi PA-C [address] [phone] PCP - General PHYSICIAN DIRECTOR CARD 01/26/19 Carroll Self MD [facility]. [facility] [address] [place] [address] [place] [employer] Seal Operator CARDIOVASCULAR DISEASE 01/19/19 documented as of this encounter
--- OUTSIDE RECORDS SUMMARY | 2024-07-28 06:51 | XMS_ITS | Encounter Summary ---
Author Organization [facility] Address [address] [place] [address]. [place], [place] [address] [place] [address] Care Team Providers Care Radial Drill Operator Name Role Phone Carroll Self MD Unavailable [phone] Carole Ravi PA-C Primary Care Provider + [phone] Reason for Referral * Consultation (Routine) - Closed Specialty Diagnoses / Procedures Referred By Contac t Referred To Contact UROLOGY Diagnoses Erectile dysfunction, unspecified erectile dysfunction type Procedures OFFICE/OUTPT VISIT,NEW,LEVL III OFFICE/OUTPT VISIT,NEW,LEVL IV OFFICE/OUTPT VISIT,NEW,LEVL V OFFICE/OUTPT VISIT,EST,LEVL III OFFICE/OUTPT VISIT,EST,LEVL IV OFFICE/OUTPT VISIT,EST,[place] [address] Phone: tel: fax: Spencer Morales MD [address] [place] [address] Phone: tel: fax: Referral ID Status Reason Start Date Expiration Date V isits Requested Visits Authorized [id number] Closed Specialty Services 08/14/2022 08/14/2023 1 1 DENT RESPONSE MANAGER Reason for Visit * Reason Onset Date Comments Referral 08/14/2022 Encounter Details Date Type Department Care Team (Late st Contact Info) Description 08/14/2022 Telephone [facility], [facility] [address] [place], [place] [address] Carroll Self MD Three [facility]. 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 Unable to assess 08/13/2022 9:53 AM INCIDENT RESPONSE MANAGER documented as of this encounter Progress Notes * LAZARO Parnell - 08/14/2022 8:09 AM CST ----- Message from LETITIA Cook sent at 08/13/2022 12:41 PM INCIDENT RESPONSE MANAGER ----- Please send referral to urology, Dr. Morales, for ED. Thanks! REFERRAL ENTERED/ FAXED TO [phone] DENT RESPONSE MANAGER DENT RESPONSE MANAGER documented in this encounter Plan of Treatment Upcoming Encounters Date Type Department Care Team ([facility] Contact Info) Description 08/31/2024 3:00 PM INCIDENT RESPONSE MANAGER [facility] [address] [place] [address] Carroll Self MD Three [facility]. [facility] [address] [place] [address] Scheduled Referrals Name Type Priority Associated Diagnoses Orde r Schedule Ambulatory referral to Urology Referral Routine Erectile dysfunction, unspecified erectile dysfunction type Ordered: 08/14/2022 documented as of this encounter Visit Diagnoses Diagnosis Erectile dysfunction, unspecified erectile dysfunction type- Primary documented in this encounter Care Teams Radial Drill Operator Relationship Specialty Start Date End Date Carole Ravi PA-C [address] [phone] PCP - General PHYSICIAN ANIMAL HANDLER 01/26/19 Carroll Self MD Three [facility]. [address] [address] Didier Wire Bound Box Machine Helper CARDIOVASCULAR DISEASE 01/19/19 documented as of this encounter
--- OUTSIDE RECORDS SUMMARY | 2024-07-28 06:51 | XMS_ITS | Encounter Summary ---
Author Organization [facility] Address [address] [place] [address]. [place], [place] [address] [place] [address] Care Team Providers Care Grails Web Application Developer Name Role Phone Carroll Self MD Unavailable [phone] Carole Ravi PA-C Primary Care Provider + [phone] Reason for Visit * Reason Onset Date Comments Advise 03/03/2019 Encounter Details Date Type Department Care Team (Late st Contact Info) Description 03/03/2019 Telephone [facility] at [address] [address] Carroll Self MD [facility]. 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 * LAZARO Parnell - 03/03/2019 3:45 PM CDT CALL FROM PT STATING THAT HIS INSURANCE WILL NOT COVER THE INTENSIVE THERAPY THAT DR SELF HAS ORDERED. PT REQUESTING ORDER TO BE SENT TO [facility] WHICH IS CLOSE TO HOME AND HIS INSURANCE WILL COVER THERE. MESSAGE TO MD documented in this encounter Plan of Treatment Upcoming Encounters Date Type Department Care Team (Late st Contact Info) Description 08/31/2024 3:00 PM VALVE STEAMER Office Visit [facility] [address] Carroll Self MD [facility]. [address] [address] documented as of this encounter Visit Diagnoses Not on filedocumented in this encounter Care Teams Grails Web Application Developer Relationship Specialty Start Date End Date Carole Ravi PA-C [facility] [address] [place] [phone] PCP - General PHYSICIAN CLOTH PRESSER 01/26/19 Carroll Self MD Three [facility]. [place] [address] [place], [place] [address] Didier Priming Machine Operator CARDIOVASCULAR DISEASE 01/19/19 documented as of this encounter
--- OUTSIDE RECORDS SUMMARY | 2024-07-28 06:51 | XMS_ITS | Encounter Summary ---
Author Organization [facility] Address [address] [place] [address]. 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 [address] [address] documented as of this encounter Visit Diagnoses Not on filedocumented in this encounter Care Teams Plate Washer Relationship Specialty Start Date End Date Carole Ravi PA-C [address] [phone] PCP - General PHYSICIAN TIRE BUILDING SUPERVISOR 01/26/19 Carroll Self MD [facility]. [facility] [address] [place] [address] Didier Staffing Assistant CARDIOVASCULAR DISEASE 01/19/19 documented as of this encounter
--- OUTSIDE RECORDS SUMMARY | 2024-07-28 06:51 | XMS_ITS | Encounter Summary ---
Author Organization [facility] Address [address] [place] [address]. [place], [place] [address] [place] [address] Care Team Providers Care Audio Recording Engineer Name Role Phone Carroll Self MD Unavailable [phone] Carole Ravi PA-C Primary Care Provider + [phone] Reason for Visit * Reason Comments Coronary Artery Disease 6 mo follow up Hypertension Lipids Encounter Details Date Type Department Care Team (Late st Contact Info) Description 11/06/2019 10:30 AM CDT Telemedicine [facility] at [facility], [address] [id number] Carroll Self MD [facility]. 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 No / Unsure 11/06/2019 10:25 AM CDT documented as of this encounter Last Filed Vital Signs Vital Sign Reading Time Taken Comments Blood Pressure 136/94 11/06/2019 10:18 AM CDT per pts bp cuff Pulse 68 11/06/2019 10:18 AM CDT per pt Temperature - - Respiratory Rate - - Oxygen Saturation - - Inhaled Oxygen Concentration - - Weight 122.5 kg (270 lb) 11/06/2019 10: 18 AM CDT per pt Height 188 cm (6' 2 ) 11/06/2019 10:18 AM CDT Body Mass Index 34.67 11/06/2019 10:18 AM CDT documented in this encounter Patient Instructions * Patient Instructions* Carroll Self MD - 11/06/2019 10:30 AM CDT Images from the original note were not included. Patient Education Patient Education Coronary Artery Disease Discharge Instructions About this topic Normally, you have many blood vessels that supply blood to the heart muscle. Coronary artery disease, or CAD, is a condition where these arteries may be blocked a little or all the way. Fatty materials and cholesterol are stuck inside the arteries and block blood flow. When these arteries are blocked, less oxygen gets to the heart. This may cause chest pain. If the blockage is bad enough, it can cause a heart attack. CAD can cause serious heart problems. CAD may be treated and managed. You may need drugs and lifestyle changes. The doctor may suggest surgery for very bad cases of CAD. What care is needed at home? ?? Ask your doctor what you need to do when you go home. Make sure you ask questions if you do not understand what the doctor says. This way you will know what you need to do. ?? Talk to your doctor about what drugs you will need to take. Be sure to take them as ordered. ?? Ask for a diet consult before you go home. This will help you monitor your cholesterol level andsugar level. Ask your dietitian and doctor what foods are healthy for you. ?? Ask your doctor for ways to control your blood pressure. ?? Talk to your doctor about your cholesterol levels. Ask if there are ways you can work to lower your bad cholesterol. ?? Stop smoking. This will help relax the blood vessels in your body. ?? Stop or limit drinking beer, wine, and mixed drinks (alcohol). ?? Find a way to manage stress. You may practice relaxation methods such as reflection, breathing, and muscle relaxation. What follow-up care is needed? ?? Your doctor may ask you to make visits to the office to check on your progress. Be sure to keep these visits. ?? Your doctor may suggest you go to a heart rehab center for more care. What drugs may be needed? The doctor may order drugs to: ?? Lower blood pressure ?? Prevent blood clots ?? Slow your heart rate ?? Lower cholesterol ?? Relieve heart pain Will physical activity be limited? Talk to your doctor about the right amount of activity for you. What changes to diet are needed? ?? Eat fruits and vegetables. ?? Eat whole grain products such as whole grain cereals and bread. ?? Eat lean meat like poultry and fish. ?? Eat food low in fat. ?? Drink low-fat milk and low-fat milk products. ?? Avoid fatty or greasy food. ?? Avoid foods high in salt and sugar. What problems could happen? ?? Heart attack ?? Stroke ?? Cardiac arrest ?? Weakening of the heart ?? Congestive heart failure ?? Arrhythmia What can be done to prevent this health problem? ?? Eat a heart healthy diet. ?? Exercise regularly. ?? Lose weight or keep a healthy weight. ?? Stop smoking. Avoid alcohol. ?? Lower stress. ?? Control your blood pressure. ?? Take drugs for your heart as ordered by your doctor. When do I need to call the doctor? Activate the emergency medical system right away if you have signs of a heart attack or stroke. Call 911 in the [place] or [place]. The sooner treatment begins, the better your chances for recovery. Call for emergency help right away if you have: ?? Signs of heart attack: ? Chest pain ? Trouble breathing ? Fast heartbeat ? Feeling dizzy ?? Signs of stroke: ? Sudden numbness or weakness of the face, arm, or leg, especially on one side of the body ? Sudden confusion, trouble speaking or understanding ? Sudden trouble seeing in one or both eyes ? Sudden trouble walking, dizziness, loss of balance or coordination ? Sudden severe headache with no known cause Call your doctor if you have: ?? You are not feeling better in 2 to 3 days or you are feeling worse Helpful tips Join support groups to get to know other people who have coped with the condition. This may help relieve your stress and anxiety. Teach Back: Helping You Understand The Teach Back Method helps you understand the information we are giving you. The idea is simple. After talking with the staff, tell them in your own words what you were just told. This helps to makesure the staff has covered each thing clearly. It also helps to explain things that may have been abit confusing. Before going home, make sure you are able to do these: ?? I can tell you about my condition. ?? I can tell you how to lower my risk of heart disease. ?? I can tell you why it is important to stop smoking. ?? I can tell you what I will do if I have signs of a heart attack or stroke. Where can I learn more? [employer] http://www.heart.org/HEARTORG/Conditions/More/MyHeartandStrokeNews/Coronary-Nikia ry-Disease---Mgn-XYNh-xo-CAD_[facility]_436416_Article.jsp#.Y6vEeiEqbyX FamilyDoctor.org http://familydoctor.org/familydoctor/en/diseases-conditions/aqzikkfr-zgutnv-unef ase.printerview.all.html NHS Choices https://www.nhs.uk/conditions/ebjznmzh-qktgz-akwnzxu/ Last Reviewed Date 2018-09-11 Consumer Information Use and Disclaimer This information [...] right for you. Copyright Copyright ?? 2019 [employer] and its affiliates and/or licensors. All rights reserved. documented in this encounter Progress Notes * Carroll Self MD - 11/06/2019 10:30 AM CDT Reason for Visit: Coronary Artery Disease (6 mo follow up ); Hypertension; and Lipids History of Present Illness: Spencer Chaudhari is a 53-year-old male with a past medical history of hyperlipidemia and coronary artery disease here today for follow up of CAD. In January 2019 was on a family vacation at [place]icate time[place] in [place] when he developed worsening SOB/CP. Had been having mild GALLO for weeks prior. Emergently seen in [place] and was found to have a 75% distal left main. Discussion between CTS/cardiology and patient led to patient having impella assisted LM-LAD stenting and stenting of D1. Has done fine since.No new symptoms. No new. Exercising occasionally, about 2MPH on a treadmill at 1.5% grade. Did use NTG twice in the Fall, none since. Labs: From inpatient stay - LDL 77, Hgb 13.8 Awaiting more recent labs. Data: Echo (2018) - EF 45-50%. Thickened valves but no significant valve disease. Cath (01/14/2019) - awaiting actual cath films. From description sounds like 75% distal LM, 55% mid LAD, 90% D1, 50% LCx. S/p KALEB to distal LM/LAD and proximal D1 Recommendations and Plan: CAD/NSTEMI - had a minimal NSTEMI on presentation to [place], but also had complex intervention. Reasonable to keep on DAPT for now unless has significant bleeding/bruising. Continue high dose statin, metoprolol HLP - as above regarding statin. Awaiting new labs. HTN - will have patient check at home over the next month, then will let me know. In favor of starting ARB - will depend on BP numbers on whether we back off metoprolol as well. ICM - echo later this year, once past pandemic. I introduced and identified myself, received verbal consent from the patient to proceed with this video visit and made the patient aware that the same confidentiality and information resource consultant practices apply. The patient joined the video visit from Home. I completed the virtual visit from Office. The following clinical staff helped with this visit MA: Jyotsna Gaffney. Total Time Spent in Minutes:13 minutes Follow up in 6 months or sooner if needed. Medications: Current Outpatient Medications: ??? aspirin EC 81 MG tablet, Take 81 mg by mouth daily., Disp: , Rfl: ??? atorvastatin 80 MG tablet, Take 1 tablet (80 mg total) by mouth every evening., Disp: 90 tablet, Rfl: 1 ??? Coenzyme Q10 (COQ-10) 100 MG Cap, [...] for Erectile Dysfunction., Disp: , Rfl: ??? ticagrelor (BRILINTA) 90 [...] Last attempt to quit: 07/1991 Years since quittin.3 ??? Smokeless tobacco: Former User Types: Chew [...] shortness of breath and snoring. Cardiovascular: See HPI Gastrointestinal: Negative for blood in stool and melena. Genitourinary: Negative for dysuria. Musculoskeletal: Negative for myalgias and new or worsening joint stiffness/pain. Skin: Negative for rash. Neurological: Negative for tingling/numbness and focal weakness. Endo/Heme/Allergies: Negative for new or significant bruising/bleeding and polydipsia. Psychiatric/Behavioral: Negative for depression and new or significant memory loss. Filed Vitals: 11/06/19 1018 BP: (!) 136/94 Pulse: 68 Weight: 122.5 kg (270 lb) Height: 6' 2 (1.88 m) Body mass index is 34.67 kg/m??. Physical Exam Video visit during pandemic. No exam. Diagnoses/Impression: 1. Coronary artery disease involving [place] coronary artery of [place] heart without angina pectoris 2. Essential (primary) hypertension 3. Dyslipidemia 4. Ischemic cardiomyopathy [place] Documentation Completed: Coronary Artery Disease Referring Provider: No ref. provider found PCP: CAROLE RAVI PA-C documented in this encounter Plan of Treatment Upcoming Encounters Date Type Department Care Team (Late st Contact Info) Description 08/31/2024 3:00 PM SECRETARY TO BOARD OF COMMISSIONERS [facility] [address] [place] [address] Carroll Self MD [facility]. [facility] [address] [place] [address] documented as of this encounter Visit Diagnoses Diagnosis Coronary artery disease involving [place] coronary artery of [place] heart without angina pectoris- Primary Essential (primary) hypertension Unspecified essential hypertension Dyslipidemia Other and unspecified hyperlipidemia Ischemic cardiomyopathy Other specified forms of chronic ischemic heart disease documented in this encounter Care Teams Audio Recording Engineer Relationship Specialty Start Date End Date Carole Ravi PA-C [address] [phone] PCP - General PHYSICIAN MANAGER MED SURG 01/26/19 Carroll Self MD [facility]. [address] [address] [place] Plastic Tubing Insulation Supervisor CARDIOVASCULAR DISEASE 01/19/19 documented as of this encounter
--- OUTSIDE RECORDS SUMMARY | 2024-07-28 06:51 | XMS_ITS | Encounter Summary ---
Author Organization [facility] Address [address] [place] [address]. 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 [address] [place] [phone] Carroll Self MD [facility] [facility] [address] [place] [address] documented as of this encounter Visit Diagnoses Not on filedocumented in this encounter Care Teams Caustic Plant Worker Relationship Specialty Start Date End Date Carole Ravi PA-C [address] [phone] PCP - General PHYSICIAN SENIOR CAPITAL MARKETS SPECIALIST 01/26/19 Carroll Self MD [facility]. [facility] [address] [place] [address] Didier Display Screen Fabricator CARDIOVASCULAR DISEASE 01/19/19 documented as of this encounter
--- OUTSIDE RECORDS SUMMARY | 2024-07-28 06:51 | XMS_ITS | Encounter Summary ---
Author Organization [facility] Address [address] [place] [address]. [place], [place] [address] [place] [address] Care Team Providers Care Turf Grower Name Role Phone Carroll Self MD Unavailable [phone] Carole Ravi PA-C Primary Care Provider + [phone] Reason for Visit * Reason Onset Date Comments Information 03/11/2019 [facility] Cardiac Rehab Encounter Details Date Type Department Care Team (Late st Contact Info) Description 03/11/2019 Telephone [facility] at [facility], [address] [address] Carroll Self MD [facility]. 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 I left a VM that I was returning her call. documented in this encounter Plan of Treatment Upcoming Encounters Date Type Department Care Team (Late st Contact Info) Description 08/31/2024 3:00 PM AIRPORT ELECTRICIAN Office Visit [facility] [address] [place] [phone] Carroll Self MD [facility]. [address] [address] documented as of this encounter Visit Diagnoses Not on filedocumented in this encounter Care Teams Turf Grower Relationship Specialty Start Date End Date Carole Ravi PA-C [facility] [address] [place] [phone] PCP - General PHYSICIAN TITLE INSURANCE EXAMINER 01/26/19 Carroll Self MD [facility]. [facility] [address] [place] [address] Didier Hollow Tile Partition Erector CARDIOVASCULAR DISEASE 01/19/19 documented as of this encounter
--- OUTSIDE RECORDS SUMMARY | 2024-07-28 06:51 | XMS_ITS | Encounter Summary ---
Author Organization [facility] Address [address] [place] [address]. 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. [place] [address] [place] [address] documented as of this encounter Visit Diagnoses Not on filedocumented in this encounter Care Teams Video Poker Floorman Relationship Specialty Start Date End Date Carole Ravi PA-C [facility] [address] [place] [phone] PCP - General PHYSICIAN PRESS BREAKER 01/26/19 Carroll Self MD Three [facility]. [address] [address] [place] Wirer Maintenance CARDIOVASCULAR DISEASE 01/19/19 documented as of this encounter
--- OUTSIDE RECORDS SUMMARY | 2024-07-28 06:51 | XMS_ITS | Encounter Summary ---
Author Organization [facility] Address [address] [place] [address]. [place], [place] [address] [place] [address] Care Team Providers Care Hand Roller Engraver Name Role Phone Carroll Self MD Unavailable [phone] Carole Ravi PA-C Primary Care Provider + [phone] Reason for Visit * Reason Onset Date Comments Information 02/10/2019 [employer] - CD's and records rec'd. Encounter Details Date Type Department Care Team (Late st Contact Info) Description 02/10/2019 Telephone [facility] at [address] [address] Carroll Self MD [facility]. [address] [phone] Information ([employer] - CD's and records rec'd.) Social History Tobacco Use Types Packs/Day Years Used Date Smoking Tobacco: Former Smokeless Tobacco: Former Chew Alcohol Use Standard Drinks/Week Comments Yes 1.7 (1 standard drink = 0.6 oz p ure alcohol) Sex and Gender Information Value Date Recorded Sex Assigned at Not on file Legal Sex Male 10:17 AM CDT Gender Identity Not on file Sexual Orientation Not on file documented as of this encounter Progress Notes * Tatianna Michelle MA - 02/10/2019 4:01 PM CDT 02/10/19 [employer], IVUS CD 01/12/19 PCI, Impella CD 01/14/19 Op note - Left Heart Cath 01/12/19 Op note - PCI 01/14/[address] Angiogram Chest Pulmonary embolism w/Contrast 01/10/19 EKG 12 lead 01/10/19 Records and CD's given to Dr. Self's medical secretary teacher. documented in this encounter Plan of Treatment Upcoming Encounters Date Type Department Care Team (Late st Contact Info) Description 08/31/2024 3:00 PM LITHOGRAPH PRESS OPERATOR TINWARE Office Visit [facility] [address] [phone] Carroll Sefl MD [facility]. [facility] [address] [place] [address] documented as of this encounter Visit Diagnoses Not on filedocumented in this encounter Care Teams Hand Roller Engraver Relationship Specialty Start Date End Date Carole Ravi PA-C [address] [phone] PCP - General PHYSICIAN COLLET GLUER 01/26/19 Carroll Self MD [facility]. [facility] [address] [place], [place] [address] [place] Design Painter CARDIOVASCULAR DISEASE 01/19/19 documented as of this encounter
--- OUTSIDE RECORDS SUMMARY | 2024-07-28 06:51 | XMS_ITS | Encounter Summary ---
Author Organization [facility] Address [address] [place] [address]. [place], [place] [address] [place] [address] Care Team Providers Care Bridge Contractor Name Role Phone Carroll Self MD Unavailable [phone] Carole Ravi PA-C Primary Care Provider + [phone] Reason for Referral * Imaging (Routine) - Closed Specialty Diagnoses / Procedures Referred By Shruthi sosa Referred To Contact RADIOLOGY Diagnoses Ischemic cardiomyopathy Procedures USE ECHOCARDIOGRAM Carroll Self MD [facility]. [address] [address] Phone: tel: fax: Referral ID Status Reason Start Date Expiration Date Visits Re quested Visits Authorized [id number] Closed 05/19/2020 06/19/2021 1 1 I LINE CLAIMS ADJUSTER Reason for Visit * Imaging (Routine) - Closed Specialty Diagnoses / Procedures Referred By Shruthi sosa Referred To Contact RADIOLOGY Diagnoses Ischemic cardiomyopathy Procedures USE ECHOCARDIOGRAM Carroll Self MD [facility]. [address] [address] Phone: tel: fax: Referral ID Status Reason Start Date Expiration Date Visits Re quested Visits Authorized [id number] Closed 05/19/2020 06/19/2021 1 1 Encounter Details Date Type Department Care Team (Late st Contact Info) Description 07/13/2020 8:00 AM MULTI LINE CLAIMS ADJUSTER - 07/13/2020 9:04 AM MULTI LINE CLAIMS ADJUSTER Hospital Encounter [facility] [address] [place] [address] Carroll Self MD [facility]. 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 No / Unsure 07/13/2020 8:31 AM MULTI LINE CLAIMS ADJUSTER documented as of this encounter Medications at Time of Discharge aspirin EC 81 MG tablet Take 1 tablet (81 mg total) by mouth daily. atorvastatin 80 MG tablet Take 1 tablet (80 mg total) by mouth every evening. 90 tablet 1 05/13/2020 08/16/2020 metoprolol succinate ER 100 MG 24 hr tablet Take 1 tablet (100 mg total) by mouth daily. 90 tablet 1 07/06/2020 12/29/2020 mometasone-formo terol (DULERA) 200-5 MCG/ACT Aerosol Inhale 2 puffs into the lungs 2 (two) times daily. 06/08/2021 nitroglycerin 0.[address] 1 tablet (0.4 mg total) under the tongue every 5 (five) minutes as needed for Chest Pain (For a maximum of 3 doses, If taking third dose contact 911.). 25 tablet 1 02/17/2020 12/08/2020 tadalafil (CIALIS) 20 MG tablet Take 1 tablet (20 mg total) by mouth daily as needed for Erectile Dysfunction. 04/30/2019 12/29/2020 telmisartan 40 MG tablet Take 1 tablet (40 mg total) by mouth daily. 90 tablet 1 07/06/2020 04/06/2021 ticagrelor (BRILINTA) 90 mg tablet Take 1 tablet (90 mg total) by mouth 2 (two) times daily. 180 tablet 1 02/29/2020 12/08/2020 documented as of this encounter Plan of Treatment Upcoming Encounters Date Type Department Care Team (Late st Contact Info) Description 08/31/2024 3:00 PM MULTI LINE CLAIMS ADJUSTER Office Visit [facility] [address] [phone] Carroll Self MD [facility]. [facility] [address] [place], [place] [phone] documented as of this encounter Procedures Procedure Name Priority Date/Time Associated Diagnosis Comments USE ECHOCARDIOGRAM Routine 07/13/2020 9: 12 AM MULTI LINE CLAIMS ADJUSTER Ischemic cardiomyopathy documented in this encounter Results * USE ECHOCARDIOGRAM (07/13/2020 9:12 AM MULTI LINE CLAIMS ADJUSTER) Anatomical Region Laterality Modality Cardiac Ultrasound Carroll Self MD ECHO Final Resul t documented in this encounter Visit Diagnoses Diagnosis Ischemic cardiomyopathy Other specified forms of chronic ischemic heart disease documented in this encounter Care Teams Bridge Contractor Relationship Specialty Start Date End Date Carole Ravi PA-C [facility] [address] [phone] PCP - General PHYSICIAN MERGERS AND ACQUISITIONS CONSULTANT 01/26/19 Carroll Self MD [facility]. [place] [address] [place], [place] [phone] [place] Vascular Surgeon CARDIOVASCULAR DISEASE 01/19/19 documented as of this encounter
--- OUTSIDE RECORDS SUMMARY | 2024-07-28 06:51 | XMS_ITS | Encounter Summary ---
Author Organization [facility] Address [address] [place] [address]. 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. [address] [address] documented as of this encounter Visit Diagnoses Not on filedocumented in this encounter Care Teams Head Grower Relationship Specialty Start Date End Date Carole Ravi PA-C [address] [phone] PCP - General PHYSICIAN JUNIOR BUYER 01/26/[address] [facility]. [facility] [address] [place] [address] [place] Handbag Frames Inspector CARDIOVASCULAR DISEASE 01/19/19 documented as of this encounter
--- OUTSIDE RECORDS SUMMARY | 2024-07-28 06:51 | XMS_ITS | Encounter Summary ---
Author Organization [facility] Address [address] [place] [address]. 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 [place] [address] [place] [address] documented as of this encounter Visit Diagnoses Not on filedocumented in this encounter Care Teams Chemical Tank Worker Relationship Specialty Start Date End Date Carole Ravi PA-C [facility] [address] [place] [phone] PCP - General PHYSICIAN MANAGER OF SUPPLY CHAIN 01/26/19 Carroll Self MD [facility]. [address] [address] [place] Senior Talent Acquisition Specialist CARDIOVASCULAR DISEASE 01/19/19 documented as of this encounter
--- OUTSIDE RECORDS SUMMARY | 2024-07-28 06:51 | XMS_ITS | Encounter Summary ---
Author Organization [facility] Address [address] [place] [address]. [place], [place] [address] [place] [address] Care Team Providers Care Life Coach Name Role Phone Carroll Self MD Unavailable [phone] Carole Ravi PA-C Primary Care Provider + [phone] Reason for Visit * Reason Onset Date Comments Medication Information 01/09/2021 nitro n c ialis Encounter Details Date Type Department Care Team ([facility] st Contact Info) Description 01/09/2021 Telephone [facility] [address] [address] Brandee Sultana CMA Medication Information (nitro n cialis) Social History Tobacco Use Types Packs/Day Years [...] 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 Called pt and doctor has instructed him, not to use these 2 medicines in the same 36 hours period. Pt aware and understood. ki documented in this encounter Plan of Treatment Upcoming Encounters Date Type Department Care Team (Late st Contact Info) Description 08/31/2024 3:00 PM ASSISTANT TENNIS PROFESSIONAL Office Visit [facility] [address] [place] [phone] Carroll Self MD [facility]. [facility] [address] [place] [address] documented as of this encounter Visit Diagnoses Not on filedocumented in this encounter Care Teams Life Coach Relationship Specialty Start Date End Date Carole Ravi PA-C [facility] [address] [place] [phone] PCP - General PHYSICIAN GENERAL PRACTITIONER 01/26/19 Carroll Self MD [facility]. [facility] [address] [place], [place] [phone] [place] Care Technician CARDIOVASCULAR DISEASE 01/19/19 documented as of this encounter
--- OUTSIDE RECORDS SUMMARY | 2024-07-28 06:51 | XMS_ITS | Encounter Summary ---
Author Organization [facility] Address [address] [place] [address]. 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 [address] [address] documented as of this encounter Visit Diagnoses Not on filedocumented in this encounter Care Teams Oil Inspector Relationship Specialty Start Date End Date Carole Ravi PA-C [address] [phone] PCP - General PHYSICIAN PENETRATION TESTER 01/26/19 Carroll Self MD Three [facility]. [address] [phone] Did[place] Facetor CARDIOVASCULAR DISEASE 01/19/19 documented as of this encounter
--- OUTSIDE RECORDS SUMMARY | 2024-07-28 06:51 | XMS_ITS | Encounter Summary ---
Author Organization [facility] Address [address] [place] [address]. [place], [place] [address] [place] [address] Care Team Providers Care Assessment Analyst Name Role Phone Carroll Self MD Unavailable [phone] Carole Ravi PA-C Primary Care Provider + [phone] Encounter Details Date Type Department Care Team (Late Contact Info) Description 02/09/2019 Scan [facility] at [address] [address] Scanned, Documents Social History Tobacco Use Types [...] st Contact Info) Description 08/31/2024 3:00 PM FRUIT CUTTER [facility] [address] [place] [phone] Carroll Self MD [facility]. [address] [phone] documented as of this encounter Visit Diagnoses Not on filedocumented in this encounter Care Teams Assessment Analyst Relationship Specialty Start Date End Date Carole Ravi PA-C [address] [phone] PCP - General PHYSICIAN AUTHORIZATION NURSE 01/26/19 Carroll Self MD Three [facility]. [address] [address] [place] Handicraft Or Hobby Shop Manager CARDIOVASCULAR DISEASE 01/19/19 documented as of this encounter
--- OUTSIDE RECORDS SUMMARY | 2024-07-28 06:51 | XMS_ITS | Encounter Summary ---
Author Organization [facility] Address [address] [place] [address]. [place], [place] [address] [place] [address] Care Team Providers Care Spine Specialist Name Role Phone Carroll Self MD Unavailable [phone] Carole Ravi PA-C Primary Care Provider + [phone] Reason for Visit * Reason Onset Date Comments Information 03/09/2019 [facility] / record request Encounter Details Date Type Department Care Team (Late st Contact Info) Description 03/09/2019 Telephone [facility] at [address] [address] Carroll Self MD [facility]. 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 I do not see that we referred patient. I will check with community youth secretary and BLAKE to make sure we referred. documented in this encounter Plan of Treatment Upcoming Encounters Date Type Department Care Team (Late st Contact Info) Description 08/31/2024 3:00 PM TITLE ABSTRACTOR Office Visit [facility] [address] [place] [phone] Carroll Self MD [facility]. [address] [address] documented as of this encounter Visit Diagnoses Not on filedocumented in this encounter Care Teams Spine Specialist Relationship Specialty Start Date End Date Carole Ravi PA-C [facility] [address] [place] [phone] PCP - General PHYSICIAN BOWLING BALL FINISHER 01/26/19 Carroll Self MD [facility]. [facility] [address] [place] [address] [place] Door Assembler CARDIOVASCULAR DISEASE 01/19/19 documented as of this encounter
--- OUTSIDE RECORDS SUMMARY | 2024-07-28 06:51 | XMS_ITS | Encounter Summary ---
Author Organization [facility] Address [address] [place] [address]. [place] [address] [place] [address] Care Team Providers Care Film Reader Name Role Phone Carroll Self MD Unavailable [phone] Carole Ravi PA-C Primary Care Provider + [phone] Reason for Visit * Reason Comments New Patient s/p PCI in [place] Encounter Details Date Type Department Care Team (Late st Contact Info) Description 01/26/2019 2:45 PM CDT Office Visit [facility] [address] [place] [phone] Carroll Self MD [address] [address] New Patient (s/p PCI in [place]) Social History Tobacco Use Types Packs/Day Years [...] Sign Reading Time Taken Comments Blood Pressure 120/80 01/26/2019 3:09 PM CDT Pulse 76 01/26/2019 3:09 PM CDT Temperature - - Respiratory Rate - - Oxygen Saturation - - Inhaled Oxygen Concentration - - Weight 125.6 kg (277 lb) 01/26/2019 3:09 PM CDT Height 188 cm (6' 2 ) 01/26/2019 3:09 PM CDT Body Mass Index 35.56 01/26/2019 3:09 PM CDT documented in this encounter Patient Instructions * Patient Instructions* Carroll Self MD - 01/26/2019 2:45 PM CDT Images from the original note were not included. Patient Education Patient Education Mediterranean Diet About this topic This is a heart healthy diet. It is based on widely used foods and cooking styles from many countries around the [place] Sea. The main pattern for the diet is more plant foods and monounsaturated fats, or good fats, like olive oil. It has less red meats and carbs. You eat more grains, vegetables, legumes, nuts, and fruits. Fish, poultry, and moderate amounts of wine are also included. What will the results be? Your diet will have less saturated fat, cholesterol, and triglycerides. It will be higher in fiber.This will help to keep your blood sugar steady. This diet lowers the chance of heart disease and other health problems. What lifestyle changes are needed? If you do not often eat this way, you will need to change your eating habits. Be sure to get regular exercise. It is believed to help the health benefits of this diet. What changes to diet are needed? You may need to limit the amount of protein and carbs in your diet. Ask your dietitian for help planning meals that are right for you. What foods are good to eat? ?? Fruits and vegetables ?? Whole grains, nuts, and legumes ?? Foods high in fiber ?? Plenty of fish and other seafood ?? [place] oil (good fat) ?? Small amounts of poultry What foods should be limited or avoided? ?? Red meats ?? Sweets, desserts ?? Eggs ?? Butter ?? Gravies and sauces What problems could happen? ?? Your weight may rise because your diet will be higher in fat from olive oil and nuts. ?? You may have lower iron levels. Be sure to eat foods rich in iron. Also, eat foods rich in vitamin C. This will help your body take in iron. ?? You may have lower calcium levels because you are eating less dairy products. Ask your doctor ifyou need to take a calcium supplement. ?? Wine is often thought of as part of a Mediterranean diet. It is not needed and you may choose not to include it. Avoid wine if you are prone to alcohol abuse or are . Also, avoid it if youare at risk for breast cancer, have liver problems, or have other illnesses that make it important for you to not have alcohol. When do I need to call the doctor? ?? If you have any concerns about your diet Where can I learn more? Academy of Nutrition and Dietetics http://www.eatright.org/resource/food/sqmgiary-vjy-orpw/odolgsi-rrjk-qsf-trends/ bklq-sn-guzsgjzcjkotv [employer] Heart Association https://www.heart.org/en/healthy-living/healthy-eating/eat-smart/nutrition-basic s/mediterranean-diet Last Reviewed Date 2016-05-22 Consumer Information Use and Disclaimer This information [...] right for you. Copyright Copyright ?? 2019 [employer] and its affiliates and/or licensors. All rights reserved. documented in this encounter Progress Notes * Carroll Self MD - 01/26/2019 2:45 PM CDT Reason for Visit: New Patient (s/p PCI in [place]) History of Present Illness: Spencer Chaudhari is a 53-year-old male with a past medical history of hyperlipidemia and coronary artery disease here today for initial evaluation of CAD. 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 In early January was on afamily vacation at [employer] in [place] when he developed worsening SOB/CP. Had been having mild GALLO for weeks prior. Emergently seen in [place] and was found to have a 75% distal left main. Discussion between CTS/cardiology and patient led to patient having impella assisted LM-LAD stenting and stenting of D1. Has done fine since. No new symptoms. No new chest pain/pressure. No new SOB. Tolerating medications well. May have some mild depression symptoms. Labs: From inpatient stay - LDL 77, Hgb 13.8 Data: Echo (2019) - EF 45-50%. Thickened valves but no significant valve disease. Cath (01/14/2019) - awaiting actual cath films. From description sounds like 75% distal LM, 55% mid LAD, 90% D1, 50% LCx. S/p KALEB to distal LM/LAD and proximal D1 Recommendations and Plan: CAD/NSTEMI - had a minimal NSTEMI on presentation to [place], but also had complex intervention. Reasonable to keep on DAPT for 1 year. Continue high dose statin, metoprolol. Can consider backing off on metoprolol in the next 3-6 months if still feeling mild depression symptoms. Can back off statin to 40mg daily if ongoing muscle aches. Seem okay for now. Patient wants to try to get set up with high intensity cardiac rehab. Will refer over to [facility] - not doing here yet. HLP - as above regarding statin. Awaiting new labs. Follow up in 3 months or sooner if needed. Medications: Current Outpatient Medications: ??? atorvastatin 80 MG tablet, Take 80 mg by mouth every evening., Disp: , Rfl: ??? Coenzyme Q10 (COQ-10) 100 MG Cap, Take 1 capsule by mouth daily., Disp: , Rfl: ??? metoprolol succinate ER 100 MG 24 hr tablet, Take 100 mg by mouth daily., Disp: , Rfl: ??? ticagrelor (BRILINTA) 90 mg tablet, Take 90 mg by mouth 2 (two) times daily., Disp: , Rfl: ??? aspirin EC 81 MG tablet, Take 81 mg by mouth daily., Disp: , Rfl: ??? mometasone-formoterol (DULERA) 200-5 MCG/ACT Aerosol, Inhale 2 puffs into the lungs 2 (two) times daily., Disp: , Rfl: Allergies Allergen Reactions ??? Celebrex [Celecoxib] Rash Past Medical History: Diagnosis Date ??? CAD (coronary artery disease) ??? Cancer (CMS/HCC) ??? Dyslipidemia ??? Sleep apnea Past Surgical History: Procedure Laterality Date ??? CARDIAC STENTS 01/14/2019 Social History Tobacco Use ??? Smoking status: Former Smoker Last attempt to quit: 07/1991 Years since quittin.6 ??? Smokeless tobacco: Former User Types: Chew Substance Use Topics ??? Alcohol use: Yes Alcohol/week: 1.0 oz Types: 1 Glasses of wine per week ??? Drug use: No No family history on file. Family Status Relation Name Status ??? Mother Alive ??? Father Alive ??? Sister Alive ??? Brother Alive Review of Systems Filed Vitals: 01/26/19 1509 BP: 120/80 Pulse: 76 Weight: 125.6 kg (277 lb) Height: 6' 2 (1.88 m) Body mass index is 35.56 kg/m??. Physical Exam Diagnoses/Impression: 1. Coronary artery disease involving red devil coronary artery of red devil heart without angina pectorisLIPID PANEL CK (CPK) COMPREHENSIVE METABOLIC PANEL 2. Dyslipidemia LIPID PANEL PINNACLE Documentation Completed: Coronary Artery Disease Referring Provider: No ref. provider found PCP: CAROLE RAVI PA-C documented in this encounter Plan of Treatment Upcoming Encounters Date Type Department Care Team (Late st Contact Info) Description 08/31/2024 3:00 PM TRIM MACHINE ADJUSTER Office Visit [facility] [address] [phone] Carroll Self MD [facility]. [address] [address] documented as of this encounter Visit Diagnoses Diagnosis Coronary artery disease involving red devil coronary artery of red devil heart without angina pectoris- Primary Dyslipidemia Other and unspecified hyperlipidemia documented in this encounter Care Teams Film Reader Relationship Specialty Start Date End Date Carole Ravi PA-C [facility] [address] [place] [phone] PCP - General PHYSICIAN YARN WASHER 01/26/19 Carroll Self MD [facility]. [address] [address] [place] Assistant Operations Manager CARDIOVASCULAR DISEASE 01/19/19 documented as of this encounter
--- OUTSIDE RECORDS SUMMARY | 2024-07-28 06:51 | XMS_ITS | Encounter Summary ---
Author Organization [facility] Address [address] [place] [address]. 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 Unable to assess 08/13/2022 9:53 AM SAFETY INSPECTOR documented as of this encounter Plan of Treatment Upcoming Encounters Date Type Department Care Team (Late st Contact Info) Description 08/31/2024 3:00 PM SAFETY INSPECTOR Office Visit [facility] [address] [place] [phone] Carroll Self MD [facility]. [address] [address] documented as of this encounter Visit Diagnoses Not on filedocumented in this encounter Care Teams Right Of Way Maintenance Supervisor Relationship Specialty Start Date End Date Carole Ravi PA-C [address] [phone] PCP - General PHYSICIAN PRODUCTION SUPPORT MANAGER 01/26/19 Carroll Self MD [facility]. [facility] [address] [place] [address] [place] Warehouse Distribution Associate CARDIOVASCULAR DISEASE 01/19/19 documented as of this encounter
--- OUTSIDE RECORDS SUMMARY | 2024-07-28 06:51 | XMS_ITS | Encounter Summary ---
Author Organization [facility] Address [address] [place] [address]. [place], [place] [address] [place] [address] Care Team Providers Care Lap Hand Tool Name Role Phone Carroll Self MD Unavailable [phone] Carole Ravi PA-C Primary Care Provider [phone] Reason for Visit * Reason Onset Date Comments Results 02/18/2024 Encounter Details Date Type Department Care Team (Late st Contact Info) Description 02/18/2024 Telephone [facility] [address] [place], [place] [phone] Elodia Alex FNP [facility] [place] [address] [place], [place] [phone] Results Social History Tobacco Use Types Packs/Day [...] 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 [address] [phone] documented as of this encounter Visit Diagnoses Not on filedocumented in this encounter Care Teams Lap Hand Tool Relationship Specialty Start Date End Date Carole Ravi PACalC [facility] [address] [place] [phone] PCP - General PHYSICIAN SECURITY FLEX OFFICER 01/26/19 Carroll Self MD Three [facility]. [address] [phone] [place] Fluid Designer CARDIOVASCULAR DISEASE 01/19/19 documented as of this encounter
--- OUTSIDE RECORDS SUMMARY | 2024-07-28 06:51 | XMS_ITS | Encounter Summary ---
Author Organization [facility] Address [address] [place] [address]. 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 No / Unsure 07/13/2020 8:31 AM DIRECTOR OF CAPITAL GIVING documented as of this encounter Plan of Treatment Upcoming Encounters Date Type Department Care Team (Late st Contact Info) Description 08/31/2024 3:00 PM DIRECTOR OF CAPITAL GIVING Office Visit [facility] [address] [place] [phone] Carroll Self MD [facility] [address] [facility] [address] [place] [address] documented as of this encounter Visit Diagnoses Not on filedocumented in this encounter Care Teams Professional Organizer Relationship Specialty Start Date End Date Carole Ravi PA-C [address] [phone] PCP - General PHYSICIAN COMMERCIAL CENSUS TAKER 01/26/19 Carroll Self MD Three [facility]. [facility] [address] [place] [address] [place] Communications Technician CARDIOVASCULAR DISEASE 01/19/19 documented as of this encounter
--- OUTSIDE RECORDS SUMMARY | 2024-07-28 06:51 | XMS_ITS | Encounter Summary ---
Author Organization [facility] Address [address] [place] [address]. 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 Unable to assess 12/08/2020 2:50 PM CDT documented as of this encounter Last Filed Vital Signs Vital Sign Reading Time Taken Comments Blood Pressure 120/80 12/08/2020 11:41 AM CDT Pulse 63 12/08/2020 11:41 AM CDT Temperature - - Respiratory Rate - - Oxygen Saturation - - Inhaled Oxygen Concentration - - Weight 132 kg (291 lb) 12/08/2020 11:41 AM CDT Height 188 cm (6' 2 ) 12/08/2020 11:41 AM CDT Body Mass Index 37.36 12/08/2020 11:41 AM CDT documented in this encounter Patient Instructions * Patient Instructions* LAZARO Parnell - 12/08/2020 11:45 AM CDT The Mavatar Mediterranean Diet Pyramid [employer], the [employer], and the Office of the World Health Organization introduced the classic Mediterranean Diet in 1992 at a conference in [place], [place], along with [facility] Diet Pyramid graphic to represent it visually. This pyramid continues to be a well-known guide to what is now universally recognized as the gold standard eating pattern that promotes lifelong good health. It has been widely used for years by consumers, educators, and health professionals alike to implement healthier eating habits. The pyramid was created using the most current nutrition research to represent a healthy, traditional Mediterranean diet. It was based on the dietary traditions of [place], [facility] and southern [place] circa 1959 at a time when the rates of chronic disease among populations there were among the lowest in the world, and adult life expectancy was among the highest even though medical services were limited. The knig to this longevity is a diet that successfully resisted the last 50 years of modernizing foods and drinks in the industrialized countries. These modern trends tends to led to more meat (mostly beef) and other animal products, fewer fresh fruits and vegetables, and burgeoning rates of heart disease, obesity, diabetes, and other chronic diseases. The poor diet of the people of the southern Mediterranean, consisting mainly of fruits and vegetables, beans and nuts, healthy grains, fish, olive oil, small amounts of dairy, and red wine, proved to be much more likely to lead to lifelong good health. Other vital elements of the Mediterranean Diet are daily exercise, sharing meals with others, and fostering a deep appreciation for the pleasure of eating healthy and delicious foods. The Eating Pattern of The Mediterranean Diet Pyramid Dietary data from the parts of the Mediterranean region that in the recent past enjoyed the lowest recorded rates of chronic diseases and the highest adult life expectancy are characterized by a pattern similar to the one illustrated in the list below. The healthfulness of the pattern is corroborated by more than 50 years of epidemiological and experimental nutrition research. The frequency and amounts suggested are in most cases intentionally nonspecific, since variation was considerable. The historical pattern includes the following (several parenthetical notes a contemporary public health perspective): ?? An abundance of food from the plant sources, including fruits and vegetables, potatoes, breads and grains, beans, nuts, and seeds. ?? Emphasis on a variety of minimally processed and, wherever possible, seasonally fresh and locally grown foods (which often maximizes the health- promoting micronutrient and antioxidant content of these foods). ?? Casper oil as the principal fat, replacing other fats and oils (including butter and margarine). ?? Total fat ranging from less than 25 percent to over 35 percent of energy, with saturated fat no more than 7 to 8 percent of energy (calories). ?? Daily consumption of low to moderate amounts of cheese and yogurt (low-fat and non-fat versions may be preferable) ?? Twice-weekly consumption of low to moderate amounts of fish and poultry (recent research suggests that fish be somewhat favored over poultry); up to 7 eggs per week (including those used in cooking and baking). ?? Fresh fruit as the typical daily dessert; sweets with a significant amount of sugar (often honey) and saturated fat consumed not more than a few times per week. ?? Red meat a few times per month (recent research suggest that if red meat is eaten, its consumption should be limited to a maximum of 12 to 16 ounces [340 to 450 grams] per month; where the flavor is acceptable, lean versions may be preferable). ?? Regular physical activity at a level which promotes a healthy weight, fitness and well-being. ?? Moderate consumption of wine, normally with meals; about one to two glasses per day for men and one glass per day for women. From a contemporary public health perspective, wine should be considered optional and avoided when consumption would put the individual or others at risk. Updating the Mediterranean Diet Pyramid During the Anniversary Mediterranean Diet Conference in June 2008, several major updates were made to the Classic Mediterranean Diet Pyramid by the Scientific Advisory Board. These changes focused on gathering plant foods (fruits, vegetables, grains, nuts, legumes, seeds, olives and oliveoil) in a single group to visually emphasize their health benefits. The scientific committee made this change to draw attention to the king role of these delicious and healthy plant foods in this health- promoting eating pattern. A new feature on the Mediterranean Diet Pyramid is the addition of herbs and spices, for reasons ofboth health and taste. Also, herbs and spices contribute to the national identities of various Mediterranean cuisines. The committee changed the placement of fish and shellfish on the pyramid, recognizing the benefits of eating fish and shellfish at least two times per week. Some Common and Uncommon Foods and Flavors of the Mediterranean Diet Pyramid Vegetables & Tubers Artichokes, Arugula, Beets, Broccoli, [place]ropsey Sprouts, Cabbage, Carrots, Celery, Celeriac, Chicory, Liliana Rome, Dandelion Greens, Eggplant, Fennel, Kale, Leeks, Kirill,Lettuce, Mache, Mushrooms, Mustard Greens, Zeyad, Okra, Onions, (red,sweet,white) Peas, Peppers, Potatoes, Pumpkin Purslane, Radishes, Rutabega, Scallions, Shallots, Spinach, Sweet Potatoes, Turnips,and Zucchini Fruits Avocado, Apples, Apricots, Cherries, Clementines, Dates, Figs, Grapefruit, Grapes, Oranges, Melons, Nectarines, Olives, Peaches, Pears, Potatoes, Pomegranates, Strawberries, Tangerines, Tomatoes Grains Breads, Barley, Buckwheat, Bulgur, Couscous, Durum, Farro, Millet, Oats, Polenta, Rice, Wheat berries Fish & Seafood Abalone, Cockles, Clams, Crab, Eel, Flounder, Lobster, Mackerel, Mussels, Octopus, [place], Sardines, Sea Alvarez, Shrimp, Squid, Tilapia, Tuna, Whelk, Yellowtail Poultry, Eggs, Cheese & Yogurt Chicken, Duck, Guinea Fowl Eggs (Chicken, Brookside, and Duck) Cheeses (Examples include; Brie, Chevre, Corvo, Feta, Haloumi, Manchego, Parmigiano-Reggiano, Pecorum, Ricotta) Yogurt, Albanian Yogurt Nuts, Seeds & Legumes Almonds, Beans (Cannellini, Chickpeas, Andrea, Kidney, Green), Cashews, Hazelnuts, Lentils, [place] Nuts, Pistachios, Sesame Seeds (Tahini), Split Peas, Walnuts Herbs & Spices Anise, Basil, [place] Choctaw, Chiles, Clove, Cumin, Fennel, Garlic, Lavender, Marjoram, Mint, Oregano, Parsley, Pepper, Pul Biber, Mackenzie, Masoud, Savory, Sumac, Tarragon, Thyme, Zatar Meats & Sweets Pork, Beef, Leal, Mutton, Goat Sweets (Examples include:Baklava, Biscotti, Creme Caramel, Chocolate, Gelato, Fruit Tarts, Kunefe, Lokum, Mousse Au Chocolate, Sorbet, Tiramisu Water & Wine Drink Plenty of Water Wine in Moderation documented in this encounter Progress Notes * Carroll Self MD - 12/08/2020 11:45 AM CDT Reason for Visit: Coronary Artery Disease and Cardiomyopathy History of Present Illness: Spencer Chaudhari is a 55-year-old male with a past medical history of hyperlipidemia and coronary artery disease here today for follow up of CAD. In January 2019 was on a family vacation at [place] in [place] when he developed worsening SOB/CP. Had been having mild GALLO for weeks prior. Emergently seen in [place] and was found to have a 75% distal left main. Discussion between CTS/cardiology and patient led to patient having impella assisted LM-LAD stenting and stenting of D1. Has been doing okay. Notes some more heartburn after eating. No symptoms with activity. Trying to get more active - now walking about 30 minutes on a treadmill regularly, though only at 2MPH. No SOB/GALLO. No palpitations. Tolerating meds well. Labs: Lab Results Component Value Date/Time CHOL 112 07/13/2020 09:36 AM HDL 52 07/13/2020 09:36 AM LDL 43 07/13/2020 09:36 AM TRI 84 07/13/2020 09:36 AM CR 1.13 07/13/2020 09:36 AM Data Reviewed: Echo (2018) - EF [...] had a minimal NSTEMI on presentation to [place], but also had complex intervention. Reasonable to keep on DAPT for now unless has significant bleeding/bruising. Continue high dose statin, metoprolol. Will switch brilinta to 60mg BID given its been > 1 year since procedure. HLP - Continue on HI statin, LDL < 70. HTN - Good HTN control, no changes needed. ICM - had initially during cardiac event in 2019, but most recent echo seems to show EF normalized. Follow up in 6 months or sooner if needed. Medications: Current Outpatient Medications: ??? aspirin EC 81 MG tablet, Take 81 mg by mouth daily., Disp: , Rfl: ??? lactobacillus capsule, Take 1 capsule by [...] 911.)., Disp: 25 tablet, Rfl: 1 ??? rosuvastatin 40 MG tablet, Take 1 tablet (40 mg total) by mouth nightly at bedtime., Disp: 90 tablet, Rfl: 2 ??? tadalafil (CIALIS) 20 MG tablet, Take 1 tablet (20 mg total) by mouth daily as needed for Erectile Dysfunction., Disp: , Rfl: ??? telmisartan 40 MG tablet, Take 1 tablet (40 mg total) by mouth daily., Disp: 90 tablet, Rfl: 1 ??? ticagrelor 60 MG tablet, Take 1 tablet (60 mg total) by mouth 2 (two) times daily., Disp: 180 tablet, Rfl: 2 Allergies Allergen Reactions ??? Celebrex [Celecoxib] Rash Past Medical History: Diagnosis Date ??? CAD (coronary artery disease) ??? Cancer (CMS/HCC) ??? Dyslipidemia ??? Essential hypertension ??? Myocardial infarction (CMS/HCC) 01/10/2019 ??? Sleep apnea Past Surgical History: Procedure Laterality Date ??? CARDIAC STENTS 01/14/2019 Social History Tobacco Use ??? Smoking status: Former Smoker Quit date: 07/1991 Years since quittin.4 ??? Smokeless tobacco: Former User Types: Chew [...] new or significant memory loss. Filed Vitals: 12/08/20 1141 BP: 120/80 Pulse: 63 Weight: 132 kg (291 lb) Height: 6' 2 (1.88 m) Body mass index is 37.36 kg/m??. Physical Exam Constitutional: No distress. HENT: [...] Comments: Diagnoses/Impression: 1. Coronary artery disease involving creek coronary artery of creek heart without angina pectorisLIPID PANEL CK (CPK) COMPREHENSIVE METABOLIC PANEL CBC, AUTO, NO DIFF 2. Dyslipidemia 3. Essential (primary) hypertension 4. Ischemic cardiomyopathy PINNACLE Documentation Completed: Coronary Artery Disease Referring Provider: No ref. provider found PCP: CAROLE RAVI PA-C documented in this encounter Plan of Treatment Upcoming Encounters Date Type Department Care Team (Late st Contact Info) Description 08/31/2024 3:00 PM HARDWOOD FLOOR FINISHER Office Visit [facility] [address] [place] [phone] Carroll Self MD [facility]. [address] [address] documented as of this encounter Results * (ABNORMAL) CBC, AUTO, NO DIFF (06/02/2021 9:12 AM CDT) WBC 4.6 4.4 - 11.0 x10'3/uL 06/02/2021 9:30 AM CDT [facility] RBC 4.71 4.50 - 5.90 x10'6/uL 06/02/2021 9:30 AM CDT [facility] HGB 14.0 14.0 - 17.5 G/DL 06/02/2021 9:30 AM CDT [facility] HCT 43.5 41.5 - 50.4 % 06/02/2021 9:30 AM CDT [facility] MCV 92.4 80.0 - 96.0 FL 06/02/2021 9:30 AM CDT [facility] MCH 29.7 26.5 - 31.4 PG 06/02/2021 9:30 AM CDT [facility] MCHC 32.2 31.9 - 34.8 G/DL 06/02/2021 9:30 AM CDT [facility] RDW 14.6(H) 12.3 - 14.3 % 06/02/2021 9:30 AM CDT [facility] PLT 174 151 - 353 x10'3/uL 06/02/2021 9:30 AM CDT [facility] MPV 10.8 9.7 - 11.9 FL 06/02/2021 9:30 AM CDT [facility] 06/02/2021 9:12 AM CDT us Carroll Self MD LABORATORY Final Resul t [facility] [address] [place] [id number], [place] [phone] * (ABNORMAL) COMPREHENSIVE METABOLIC PANEL (06/02/2021 9:12 AM CDT) [facility] GLUCOSE 116(H) 70 - 99 MG/DL 06/02/2021 9:55 AM T [facility] BUN 16 7 - 18 MG/DL 06/02/2021 9:55 AM T [facility] CREATININE S/P/B 1.27 0.7 - 1.3 MG/DL 06/02/2021 9:55 AM T [facility] SODIUM S/P/B 137 136 - 145 MMOL/L 06/02/2021 9:55 AM T [facility] POTASSIUM S/P/B 4.4 3.5 - 5.1 MMOL/L 06/02/2021 9:55 AM T [facility] CHLORIDE S/P/B 102 100 - 108 MMOL/L 06/02/2021 9:55 AM T [facility] CO2 30.1 21 - 32 MMOL/L 06/02/2021 9:55 AM T [facility] CALCIUM S/P/B 8.8 8.5 - 10.1 MG/DL 06/02/2021 9:55 AM T [facility] BILIRUBIN TOTAL S/P/B 0.7 0.2 - 1.2 MG/DL 06/02/2021 9:55 AM T [facility] TOTAL PROTEIN S/P/B 6.9 6.4 - 8.2 G/DL 06/02/2021 9:55 AM T [facility] ALBUMIN S/P/B 4.0 3.4 - 5.0 G/DL 06/02/2021 9:55 AM T [facility] AST 33 15 - 37 U/L 06/02/2021 9:55 AM T [facility] ALT 49 16 - 60 U/L 06/02/2021 9:55 AM CDT [facility] ALKALINE PHOSPHATASE S/P/B 55 50 - 136 U/L 06/02/2021 9:55 AM CDT [facility] ANION GAP 4.9(L) 5 - 15 MMOL/L 06/02/2021 9:55 AM CDT [facility] BUN CREATININE RATIO 12.6 6 - 26 06/02/2021 9:55 AM CDT [facility] A/G RATIO 1.4 1.0 - 2.0 RATIO 06/02/2021 9:55 AM CDT [facility] EGFR NON-AFR. AMER. 64(L) >90 ML/MIN/1.7 3 M2 06/02/2021 9:55 AM CDT [facility] EGFR AFR. AMER. 74(L) >90 ML/MIN/1.7 3 M2 06/02/2021 9:55 AM T [facility] Comment: NOTE: eGFR is not calculated for patients <18 years of age. This is an estimated GFR (CKD EPI) and should not be used for calculating drug doses. 06/02/2021 9:12 AM CDT us Carroll Self MD LABORATORY Final Resul t [facility] [address] [place] [address], * CK (CPK) (06/02/2021 9:12 AM CDT) CPK 160 39 - 308 U/L 06/02/2021 9:55 AM CDT [facility] 06/02/2021 9:12 AM CDT Carroll Self MD LABORATORY Final Resul t [facility] [address] [place] [address], * LIPID PANEL (06/02/2021 9:12 AM CDT) CHOLESTEROL 110 <200.0 MG/DL 06/02/2021 9:55 AM CDT [facility] TRIGLYCERIDES 72 <150 MG/DL 06/02/2021 9:55 AM CDT [facility] HDL 49 >40.0 MG/DL 06/02/2021 9:55 AM T [facility] LDL (CALCULATED) 47 <100 MG/DL 06/02/20 9:55 AM CDT [facility] NON HDL CHOLESTEROL 61 <130 MG/DL 06/02 9:55 AM T [facility] CHOL/HDL RATIO 2.2 0.0 - 4.5 06/02/2021 9:55 AM T [facility] VLDL CALCULATION 14 5 - 55 MG/DL 06/02/2021 9:55 AM T [facility] LIPID INTERPRETATION 06/02/2021 9:55 AM T [facility] Comment: NIH CONCENSUS REPORT RECOMMENDATIONS: ?ADULT ?CHILD ??LOW RISK: ?CHOLESTEROL ? <200 ? <170 ?TRIGLYCERIDE ?<150 ?--- ?HDL ? >=60 ?--- ?LDL ? <100 ? <110 ??BORDERLINE: ?CHOLESTEROL ? 200-239 ?? 170-199 ?TRIGLYCERIDE ?150-199 ? --- ?HDL ?40-59 ?--- ?LDL ? 100-159 ?? 110-129 ??HIGH RISK: ?CHOLESTEROL ? >=240 ?>=200 ?TRIGLYCERIDE ?>=200 ? --- ?HDL ?<40 ?--- ?LDL ? >=160 ?>=130 06/02/2021 9:12 AM CDT us Carroll Self MD LABORATORY Final Resul t Performing Organization Address City/State/RUST Co de Phone Number [facility] [address] [place] [address], documented in this encounter Visit Diagnoses Diagnosis Coronary artery disease involving creek coronary artery of creek heart without angina pectoris- Primary Dyslipidemia Other and unspecified hyperlipidemia Essential (primary) hypertension Unspecified essential hypertension Ischemic cardiomyopathy Other specified forms of chronic ischemic heart disease documented in this encounter Care Teams Jukebox Route Driver Relationship Specialty Start Date End Date Carole Ravi PA-C [facility] [address] [place] [phone] PCP - General PHYSICIAN DIESEL DRAGLINE OPERATOR 01/26/19 Carroll Self MD [facility]. [address] [place] [address] [employer] Sub[employer]or CARDIOVASCULAR DISEASE 01/19/19 documented as of this encounter
--- OUTSIDE RECORDS SUMMARY | 2024-07-28 06:51 | XMS_ITS | Encounter Summary ---
Author Organization [facility] Address [address] [place] [address]. 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 Unable to assess 08/13/2022 9:53 AM LEGISLATIVE AIDE documented as of this encounter Plan of Treatment Upcoming Encounters Date Type Department Care Team (Late Contact Info) Description 08/31/2024 3:00 PM LEGISLATIVE AIDE Office Visit [facility] [address] [place] [phone] Carroll Self MD [facility]. [address] [address] documented as of this encounter Procedures Procedure Name Priority Date/Time Associated Diagnosis Comments CBC (OUTSIDE LAB) Routine 08/17/2022 BASIC METABOLIC PANEL Routine 08/17/2022 LIPID PANEL Routine 08/17/2022 HEMOGLOBIN, GLYCOSYLATED Routine 08/17/2022 CK (CPK) Routine 08/17/2022 documented in this encounter Results * CBC (OUTSIDE LAB) (08/17/2022) WBC 3.9 HGB 13.7 HCT 42.8 PLT 198 08/17/2022 us Default History Genericprovider LAB-OUTSIDE/ABST RACTED Final Result * CK (CPK) (08/17/2022) CPK 148 08/17/2022 us Default History Genericprovider LABORATORY Final Result * HEMOGLOBIN, GLYCOSYLATED (08/17/2022) HGB A1C 6.2 % 08/17/2022 us Default History Genericprovider LABORATORY Final Result * BASIC METABOLIC PANEL (08/17/2022) SODIUM S/P/B 139 POTASSIUM S/P/B 4.2 CO2 30 CHLORIDE S/P/B 103 GLUCOSE 73 mg/dL CALCIUM S/P/B 9.5 BUN 16 CREATININE S/P/B 1.12 0.7 - 1.3 EGFR NON-AFR. AMER. 78 <=90 08/17/2022 us Default History Genericprovider LABORATORY Edited Result - Final * LIPID PANEL (08/17/2022) CHOLESTEROL 103 HDL 43 TRIGLYCERIDES 94 NON HDL CHOLESTEROL 60 LDL (CALCULATED) 42 08/17/2022 us Default History Genericprovider LABORATORY Final Result documented in this encounter Visit Diagnoses Not on filedocumented in this encounter Care Teams Longshore Equipment Operator Relationship Specialty Start Date End Date Carole Ravi PA-C [facility] [address] [place] [phone] PCP - General PHYSICIAN MEMORY CARE PROGRAM DIRECTOR 01/26/19 Carroll Self MD [facility]. [address] [address] [place] Solid Waste Engineer CARDIOVASCULAR DISEASE 01/19/19 documented as of this encounter
--- OUTSIDE RECORDS SUMMARY | 2024-07-28 06:51 | XMS_ITS | Clinical Summary ---
Author Organization [facility] Address [address] [place] [address]. [place] [address] [place] [address] Care Team Providers Care Catering Associate Name Role Phone Carroll Self MD Unavailable [phone] Carole Ravi PA-C Primary Care Provider + [phone] Allergies Active Allergy Reactions Criticality Noted Date Comments Celecoxib Rash Low 01/26/2019 Lisinopril Cough 10/14/2010 Medications aspirin EC 81 MG tablet Take 1 tablet (81 mg total) by mouth daily. Active lactobacillus capsule Take 1 capsule by mouth 2 (two) times daily with meals. Active tadalafil (CIALIS) 20 MG tablet Take 1 tablet (20 mg total) by mouth daily as needed for Erectile Dysfunction. 10 tablet 1 01/10/20 21 Active SYMBICORT 160-4.5 MCG/ACT inhaler 2 (two) times a day. 04/25/20 21 Active testosterone enanthate (DELATESTRYL) 200 MG/ML injection Inject 0.5 mLs (100 mg total) into the muscle every 7 days. 07/31/20 23 Active MOUNJARO 10 MG/0.5ML injection Inject 10 mg into the skin every 7 days. 08/15/19 24 Active nitroglycerin (NITROSTAT) 0.[address] 1 TABLET (0.4 MG TOTAL) UNDER THE TONGUE EVERY 5 (FIVE) MINUTES NEEDED FOR CHEST PAIN. MAXIMUM 3 DOSES. THEN CALL 911 25 tablet 3 01/29/20 24 Active MISC NATURAL PRODUCTS OR Take by mouth daily. hepatacore Active Vitamin D-Vitamin K (VITAMIN K2-VITAMIN D3 OR) Take by mouth daily. Active albuterol sulfate HFA 108 (90 Base) MCG/ACT inhaler INHALE 1 - 2 PUFFS BY MOUTH EVERY 4 - 6 HOURS NEEDED FOR SHORTNESS OF BREATH OR WHEEZING 01/31/20 24 Active rosuvastatin (CRESTOR) 40 MG tablet take 1 tablet by mouth everyday at bedtime 90 tablet 1 04/08/20 24 Active metoprolol succinate ER (TOPROL-XL) 100 MG 24 hr tablet take 1 tablet by mouth every day 90 tablet 1 04/08/20 24 Active telmisartan (MICARDIS) 40 MG tablet take 1 tablet by mouth every day 90 tablet 1 04/22/20 24 Active BRILINTA 60 MG tablet TAKE 1 TABLET BY MOUTH TWICE A DAY 180 tablet 1 07/13/20 24 Active ticagrelor (BRILINTA) 60 MG tablet take 1 tablet by mouth twice a day 180 tablet 1 01/13/20 24 024 Discontinued Active Problems Problem Noted Date Diagnosed Date CAD (coronary artery disease) Dyslipidemia Essential hypertension Immunizations Name Administration Dates Next Due Anthrax Vaccine 05/23/2010, 7,01/29/2007,01/15 Fluzone 6 Months+ Quad (0.5 mL Prefilled Syringe) 06/11/2020 H1N1 Injectable 2008 Influenza 06/17/2009 Hepatitis A (Havrix 1440 El.U) 07/12/1995,1994 Hepatitis B (Generic: Adult) 09/17/2007,04/07/20 07,02/26/2007 Influenza (FluMist) 05/10/2009, 7,04/29/2006,08/31 Influenza (Generic) 07/06/2020, 5,04/08/2013,03/20,04/20/2011,05/23/2010,06/03/2008 ,06/25/2005,06/07/2003,07/27/2002,06/05,09/05/2000,12/13/1999, 9,05/24/1998,05/26/1997 Influenza Adult (Generic) 07/22/2022,12/2020,06/19/2020,09/05,08/11/2018,05/13/2014 MMR (MMRII) 05/24/1998,10/03/1986 Meningococcal (Menomune) 03/26/2007,03/13/2002,1 09/06/1995 PFIZER COVID-19 (ORIGINAL FO RMULATION, PURPLE CAP) mRNA, LNP-S, PF, 30 MCG/0.3 ML DOSE 10/26/2020,10/04/2020 Pneumococcal (Pneumovax 23) 11/25/2003 Polio Opv (Generic) 12/03/1986 Small Pox 09/16/2006 Td (TDVAX) 09/10/1997,12/04/1987 Tdap (Generic) 09/17/2007 Typhoid (Typhim ) 11/08/2008,09/12/2006,2001 Typhoid Vaccine, Akd 07/06/1996 Typhoid Vi Polysaccharide Va cc 25 Mcg/0.5Ml Im Soln 01/12/1999 Yellow Fever (YF- Vax) 09/12/2000,08/26/1990 Family History Relation Status Comments Brother Alive Father Alive Mother Alive Sister Alive Social History Tobacco Use Types Packs/Day Years [...] 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 [address] [address] Health Maintenance Due Date Last Done Comments Colorectal Cancer Screening Colonoscopy (10 Years) 1966 Kidney Health Evaluation 1966 Annual Physical 1969 Diabetes: Retinopathy Eye Exam 1984 Hepatitis C 1984 Pneumococcal Vaccine: Pediatrics (0 to 5 Years) and At-Risk Patients (6 to 64 Years) (2 of 2 - PCV) 11/24/2004 11/25/2003 Zoster Vaccines (1 of 2) 2016 DTaP, Tdap and Td Vaccines (2 - Td or Tdap) 09/17/2017 09/17/2007, 09/10/1997, 12/04/1987 COVID-19 Vaccine ( - season) 2024 06/28/2021, 10/26/2020, 10/04/2020 Influenza Adult (#1) 2024 07/22/2022, 06/09/2021, 07/06/2020, Additional history exists Hemoglobin A1C 08/19/2024 02/17/2024, 02/02, 08/17/2022, Additional history exists Lipid Panel 02/16/2025 02/17/2024, 02/02, 08/17/2022, Additional history exists Meningococcal Vaccine Aged Out 03/26/2007 , 03/13/2002, 07/06/1996 No longer eligible based on patient's age to complete this topic Hepatitis B Vaccines Completed 09/17/2007, 04/07/2007, 02/26/2007 RSV Immunizations Under 20 Months Aged Out No longer eligible based on patient's age to complete this topic Procedures Procedure Name Priority Date/Time Associated Diagnosis Comments LIPID PANEL Routine 02/17/2024 9:24 AM CDT Coronary artery disease involving [place] coronary artery of [place] heart without angina pectoris Mixed hyperlipidemia HEMOGLOBIN, GLYCOSYLATED Routine 02/17/2024 9:24 AM CDT Type 2 diabetes mellitus with other specified complication, unspecified whether intermodal customer service insulin use ([facility]) from Last 3 Months or Most Recently Relevant to Health Maintenance Results * (ABNORMAL) HGB A1C (02/17/2024 9:24 [...] LAB 02/17/2024 9:24 AM CDT Elodia Alex CLERK TRAVEL RESERVATIONS LABORATORY Final Result [facility] [address] [place] [address], * LIPID PANEL (02/17/2024 9:24 AM CDT) CHOLESTEROL 95 <200.0 MG/DL 02/17/2024 10:17 AM CDT [facility] TRIGLYCERIDES 57 <150 MG/DL 02/17/2024 10:17 AM CDT [facility] HDL 47 >40.0 MG/DL 02/17/2024 10:17 AM CDT [facility] LDL (CALCULATED) 37 <100 MG/DL 07/15/20 24 10:17 AM CDT [facility] NON HDL CHOLESTEROL 48 <130 MG/DL 02/16 10:17 AM CDT [facility] CHOL/HDL RATIO 2.0 0.0 - 4.5 02/17/2024 10:17 AM T [facility] VLDL CALCULATION 11 5 - 55 MG/DL 02/17/2024 10:17 AM T [facility] LIPID INTERPRETATION 02/17/2024 10:17 AM T [facility] Comment: NIH [...] ?>=130 02/17/2024 9:24 AM CDT Elodia Alex CLERK TRAVEL RESERVATIONS LABORATORY Final Result [facility] [address] [place] [address], from Last 3 Months or Most Recently Relevant to Health Maintenance Insurance [facility] [employer] [facility] [employer] Care Teams Catering Associate Relationship Specialty Start Date End Date Carole Ravi PA-C [facility] [address] [place] [phone] PCP - General PHYSICIAN SUPERVISOR [employer] 01/26/19 Carroll Self MD [facility]. [address] [address] [place] [employer] [place] Operator CARDIOVASCULAR DISEASE 01/19/19
--- OUTSIDE RECORDS SUMMARY | 2024-07-28 06:51 | XMS_ITS | Encounter Summary ---
Author Organization [facility] Address [address] [place] [address]. [place] [address] [place] [address] Care Team Providers Care Medical Management Trainer Name Role Phone Carroll Self MD Unavailable [phone] Carole Ravi PA-C Primary Care Provider + [phone] Reason for Visit * Reason Comments Coronary Artery Disease Cardiomyopathy Hypertension Lipids Encounter Details Date Type Department Care Team (Late st Contact Info) Description 06/08/2021 10:00 AM CDT [facility] [address] [place] [phone] Elodia Alex, LETITIA [address] [place] [address] Coronary Artery Disease; Cardiomyopathy; Hypertension; Lipids [...] 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 No / Unsure 06/08/2021 10:35 AM CDT documented as of this encounter Last Filed Vital Signs Vital Sign Reading Time Taken Comments Blood Pressure 120/80 06/08/2021 10:13 AM CDT Pulse 64 06/08/2021 10:13 AM CDT Temperature - - Respiratory Rate - - Oxygen Saturation - - Inhaled Oxygen Concentration - - Weight 135.2 kg (298 lb) 06/08/2021 10:13 AM CDT Height 188 cm (6' 2 ) 06/08/2021 10:13 AM CDT Body Mass Index 38.26 06/08/2021 10:13 AM CDT documented in this encounter Progress Notes * Elodia Alex, LETITIA - 06/08/2021 10:00 AM CDT Reason for Visit: Coronary Artery Disease, Cardiomyopathy, Hypertension, and Lipids History of Present Illness: Spencer Chaudhari is a pleasant 55-year-old male who has a past medical history of CAD, hypertension, hyperlipidemia and obesity who presents today for his scheduled 6 month follow-up for CAD. Back of 2018 he was on a family vacation at [place] in [place] when he developed worsening SOB/CP. Had been having mild GALLO for weeks prior. [place] and was found to have a 75% distal left main. Discussion between CTS/cardiology and patient led to patient having impella assistedLM-LAD stenting and stenting of D1. Has been doing okay since. Still notes some more heartburn/CP after eating. 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 No symptoms with activity. Trying to get more active. Still walking 30 minutesa few days a week on his home treadmill regularly now up to 2.6 mph. No SOB/GALLO. No palpitations. Tolerating meds well. Having worsening problems with ED. Labs: Lab Results Component Value Date/Time CHOL 110 06/02/2021 09:12 AM HDL 49 06/02/2021 09:12 AM LDL 47 06/02/2021 09:12 AM TRI 72 06/02/2021 09:12 AM CR 1.27 06/02/2021 09:12 AM Data Reviewed: Echo (2019) - EF 45-50%. [...] had a minimal NSTEMI on presentation to CT, but also had complex intervention. Reasonable to keep on DAPT for now unless has significant bleeding/bruising. Continue high dose statin, metoprolol. Tolerating Brilinta to 60mg BID given its been > 1 year since procedure. HLP - Continue on HI statin. LDL is at goal. HTN - Excellent control. No changes needed. ICM - had initially during cardiac event in 2018, but most recent echo seems to show EF normalized. ED - on Cialis but is still having problems with this. [facility] but would not provide as good cardiovascular benefit and will provably be too expensive. Discussedhaving him establish with urology (Dr. Diaz) for further eval. Follow up in 6 months or sooner [...] by mouth daily., Disp: 90 tablet, Rfl: 2 ??? nitroglycerin 0.4 MG SL tablet, Place 1 tablet (0.4 mg total) under the tongue every 5 (five) minutes as needed for Chest Pain (If taking 3rd dose, contact 911.)., Disp: 25 tablet, Rfl: 1 [...] Dysfunction., Disp: 10 tablet, Rfl: 1 ??? telmisartan 40 MG tablet, Take 1 tablet (40 mg total) by mouth daily., Disp: 90 tablet, Rfl: 0 ??? ticagrelor 60 MG tablet, Take 1 [...] Former Smoker Quit date: 07/1991 Years since quittin.9 ??? Smokeless tobacco: Former User Types: Chew Quit date: 1993 Substance Use Topics ??? Alcohol use: Yes Alcohol/week: 1.7 standard drinks Types: 1 Glasses of wine per week Comment: 2-3 per month ??? Drug use: No No family history on file. Family Status Relation Name Status ??? Mother Alive ??? Father Alive ??? Sister Alive ??? Brother Alive Review of Systems Constitutional: Positive for weight gain and fatigue. Negative for recent unintentional weight loss, diaphoresis and weakness. HENT: Negative for new or significant hearing loss, nosebleeds and headaches. Eyes: Negative for blurred vision and double vision. Respiratory: Positive for cough and shortness of breath. Negative for wheezing, snoring and hemoptysis. Cardiovascular: See HPI. Negative for chest pain, palpitations and orthopnea. Gastrointestinal: Positive for heartburn. Negative for nausea, vomiting, abdominal pain, constipation, blood in stool and melena. Genitourinary: Negative for dysuria and hematuria. Musculoskeletal: Negative for myalgias and new or worsening joint stiffness/pain. Skin: Negative for rash. Neurological: Negative for tingling/numbness, focal weakness, LOC and imbalance. Endo/Heme/Allergies: Negative for new or significant bruising/bleeding and polydipsia. Psychiatric/Behavioral: Negative for depression, nervous/anxious and new or significant memory loss. Filed Vitals: 06/08/21 1013 BP: 120/80 Pulse: 64 Weight: 135.2 kg (298 lb) Height: 6' 2 (1.88 m) Body mass index is 38.26 kg/m??. Physical Exam Constitutional: No distress. HENT: [...] murmur. Cardiovascular Comments: Diagnoses/Impression: No diagnosis found. [place] Documentation Completed: Coronary Artery Disease Referring Provider: No ref. provider found PCP: CAROLE RAVI PA-C documented in this encounter Plan of Treatment Upcoming Encounters Date Type Department Care Team (Late st Contact Info) Description 08/31/2024 3:00 PM CLOTH CUTTING MACHINE OPERATOR Office Visit [facility] [address] [place] [address] Carroll Self MD [facility]. [address] [address] documented as of this encounter Results * (ABNORMAL) HGB A1C (06/08/2021 10:54 AM CDT) HGB A1C 7.0(H) <5.7 % 06/08/2021 12:29 PM CDT [facility] Comment: INCREASED RISK OF DIABETES <5.7% ?NON-DIABETES 5.7-6.4% INCREASED RISK FOR FUTURE DIABETES > OR = 6.5 CONSISTENT WITH DIABETES STANDARDS OF MEDICAL CARE IN DIABETES-2010 DIABETES CARE, 33(SUPP 1): S1-S61,2010 06/08/2021 10:5 4 AM CDT Elodia Alex MARKETING TECHNOLOGY COORDINATOR LABORATORY Final Result [facility] [address] [place] [address], documented in this encounter Visit Diagnoses Diagnosis Hyperglycemia- Primary Other abnormal glucose Coronary artery disease involving [place] coronary artery of [place] heart without angina pectoris Essential hypertension Unspecified essential hypertension Dyslipidemia Other and unspecified hyperlipidemia Erectile dysfunction, unspecified erectile dysfunction type documented in this encounter Care Teams Medical Management Trainer Relationship Specialty Start Date End Date Carole Ravi PA-C [address] [phone] PCP - General PHYSICIAN CLAIMS DIRECTOR 01/26/19 Carroll Self MD [facility]. [address] [address] [address] R[address] CARDIOVASCULAR DISEASE 01/19/19 documented as of this encounter
--- OUTSIDE RECORDS SUMMARY | 2024-07-28 06:51 | XMS_ITS | Encounter Summary ---
Author Organization [facility] Address [address] [place] [address]. [place] [address] [place] [address] Care Team Providers Care Insights Manager Name Role Phone Carroll Self MD Unavailable [phone] Carole Ravi PA-C Primary Care Provider + [phone] Encounter Details Date Type Department Care Team (Latest Contact Info) Description 02/17/2024 Travel Social History Tobacco Use Types Packs/Day [...] st Contact Info) Description 08/31/2024 3:00 PM PHARMACIST HELPER [facility] [address] [place] [phone] Carroll Self MD [facility]. [address] [address] [place] [address] documented as of this encounter Visit Diagnoses Not on filedocumented in this encounter Care Teams Insights Manager Relationship Specialty Start Date End Date Carole Ravi PA-C [facility] [address] [place] [phone] PCP - General PHYSICIAN NURSE ADMINISTRATOR 01/26/19 Carroll Self MD Three [facility]. [address] [address] Dairy Sql Report Developer CARDIOVASCULAR DISEASE 01/19/19 documented as of this encounter
--- OUTSIDE RECORDS SUMMARY | 2024-07-28 06:51 | XMS_ITS | Encounter Summary ---
Author Organization [facility] Address [address] [place] [address]. 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 No / Unsure 06/02/2021 9:08 AM CDT documented as of this encounter Medications at [...] for Erectile Dysfunction. 10 tablet 1 01/09/2021 metoprolol succinate ER 100 MG 24 hr tablet Take 1 tablet (100 mg total) by mouth daily. 90 tablet 2 12/29/2020 06/30/2021 mometasone-formo terol (DULERA) 200-5 MCG/ACT Aerosol Inhale 2 puffs into the lungs 2 (two) times daily. 06/08/2021 nitroglycerin 0.[address] 1 tablet (0.4 mg total) under the tongue every 5 (five) minutes as needed for Chest Pain (If taking 3rd dose, contact 911.). 25 tablet 1 05/17/2021 06/30/2021 rosuvastatin 40 MG tablet Take 1 tablet (40 mg total) by mouth nightly at bedtime. 90 tablet 2 12/08/2020 08/25/2021 telmisartan 40 MG tablet Take 1 tablet (40 mg total) by mouth daily. 90 tablet 05/17/2021 11/06/2021 ticagrelor 60 MG tablet Take 1 tablet (60 mg total) by mouth 2 (two) times daily. 180 tablet 2 12/08/2020 09/11/2021 documented as of this encounter Plan of Treatment Upcoming Encounters Date Type Department Care Team (Late st Contact Info) Description 08/31/2024 3:00 PM PERSONAL CARE ASSISTANT Office Visit [place] [facility] [address] [place] [phone] Carroll Self MD [facility]. [place] [address] [place] [address] documented as of this encounter Procedures Procedure Name Priority Date/Time Associated Diagnosis Comments COMPREHENSIVE METABOLIC PANEL Routine 06/02/2021 9:12 AM CDT Coronary artery disease involving guid[place] coronary artery of [place] heart without angina pectoris LIPID PANEL Routine 06/02/2021 9:12 AM CDT Coronary artery disease involving [place] coronary artery of [place] heart without angina pectoris CBC, AUTO, NO DIFF Routine 06/02/2021 9: 12 AM CDT Coronary artery disease involving [place] coronary artery of [place] heart without angina pectoris CK (CPK) Routine 06/02/2021 9:12 AM CDT Coronary artery disease involving guid[place] coronary artery of guid[place] heart without angina pectoris documented in this encounter Results * (ABNORMAL) CBC, AUTO, NO DIFF (06/02/2021 9:12 AM CDT) WBC 4.6 4.4 - 11.0 x10'3/uL 06/02/2021 9:30 AM CDT [facility] RBC 4.71 4.50 - 5.90 x10'6/uL 06/02/2021 9:30 AM CDT [facility] HGB 14.0 14.0 - 17.5 G/DL 06/02/2021 9:30 AM CDT [facility] HCT 43.5 41.5 - 50.4 % 06/02/2021 9:30 AM CDT [facility] MCV 92.4 80.0 - 96.0 FL 06/02/2021 9:30 AM CDT [facility] MCH 29.7 26.5 - 31.4 PG 06/02/2021 9:30 AM CDT [facility] MCHC 32.2 31.9 - 34.8 G/DL 06/02/2021 9:30 AM CDT [facility] RDW 14.6(H) 12.3 - 14.3 % 06/02/2021 9:30 AM CDT [facility] PLT 174 151 - 353 x10'3/uL 06/02/2021 9:30 AM CDT [facility] MPV 10.8 9.7 - 11.9 FL 06/02/2021 9:30 AM CDT [facility] 06/02/2021 9:12 AM CDT us Carroll Self MD LABORATORY Final Resul t [facility] [address] [place] [address], [place] [phone] * (ABNORMAL) COMPREHENSIVE METABOLIC PANEL (06/02/2021 9:12 AM CDT) Pathologist [facility] GLUCOSE 116(H) 70 - 99 MG/DL 06/02/2021 9:55 AM CDT [facility] BUN 16 7 - 18 MG/DL 06/02/2021 9:55 AM CDT [facility] CREATININE S/P/B 1.27 0.7 - 1.3 MG/DL 06/02/2021 9:55 AM CDT [facility] SODIUM S/P/B 137 136 - 145 MMOL/L 06/02/2021 9:55 AM CDT [facility] POTASSIUM S/P/B 4.4 3.5 - 5.1 MMOL/L 06/02/2021 9:55 AM CDT [facility] CHLORIDE S/P/B 102 100 - 108 MMOL/L 06/02/2021 9:55 AM CDT [facility] CO2 30.1 21 - 32 MMOL/L 06/02/2021 9:55 AM [facility] CALCIUM S/P/B 8.8 8.5 - 10.1 MG/DL 06/02/2021 9:55 AM [facility] BILIRUBIN TOTAL S/P/B 0.7 0.2 - 1.2 MG/DL 06/02/2021 9:55 AM [facility] TOTAL PROTEIN S/P/B 6.9 6.4 - 8.2 G/DL 06/02/2021 9:55 AM [facility] ALBUMIN S/P/B 4.0 3.4 - 5.0 G/DL 06/02/2021 9:55 AM [facility] AST 33 15 - 37 U/L 06/02/2021 9:55 AM [facility] ALT 49 16 - 60 U/L 06/02/2021 9:55 AM [facility] ALKALINE PHOSPHATASE S/P/B 55 50 - 136 U/L 06/02/2021 9:55 AM [facility] ANION GAP 4.9(L) 5 - 15 MMOL/L 06/02/2021 9:55 AM [facility] BUN CREATININE RATIO 12.6 6 - 26 06/02/2021 9:55 AM [facility] A/G RATIO 1.4 1.0 - 2.0 RATIO 06/02/2021 9:55 AM [facility] EGFR NON-AFR. AMER. 64(L) >90 ML/MIN/1.7 3 M2 06/02/2021 9:55 AM [facility] EGFR AFR. AMER. 74(L) >90 ML/MIN/1.7 3 M2 06/02/2021 9:55 AM [facility] Comment: NOTE: eGFR is not calculated for patients <18 years of age. This is an estimated GFR (CKD EPI) and should not be used for calculating drug doses. 06/02/2021 9:12 AM CDT Carroll Self MD LABORATORY Final Resul t Performing Organization Address [facility]/ZIP Co de Phone Number [facility] [address] [place] [address], [place] [phone] * CK (CPK) (06/02/2021 9:12 AM CDT) CPK 160 39 - 308 U/L 06/02/2021 9:55 AM CDT [facility] 06/02/2021 9:12 AM CDT Carroll Self MD LABORATORY Final Resul t Performing Organization Address [facility] de Phone Number [facility] [address] [place] [address], [place] [phone] * LIPID PANEL (06/02/2021 9:12 AM CDT) CHOLESTEROL 110 <200.0 MG/DL 06/02/2021 9:55 AM CDT [facility] TRIGLYCERIDES 72 <150 MG/DL 06/02/2021 9:55 AM CDT [facility] HDL 49 >40.0 MG/DL 06/02/2021 9:55 AM CDT [facility] LDL (CALCULATED) 47 <100 MG/DL 06/02/20 9:55 AM CDT [facility] NON HDL CHOLESTEROL 61 <130 MG/DL 06/02 9:55 AM CDT [facility] CHOL/HDL RATIO 2.2 0.0 - 4.5 06/02/2021 9:55 AM CDT [facility] VLDL CALCULATION 14 5 - 55 MG/DL 06/02/2021 9:55 AM CDT [facility] LIPID INTERPRETATION 06/02/2021 9:55 AM CDT [facility] Comment: NIH CONCENSUS [...] ? >=160 ?>=130 06/02/2021 9:12 AM CDT Carroll Self MD LABORATORY Final Resul t [facility] [address] [place] [address], documented in this encounter Visit Diagnoses Diagnosis Coronary artery disease involving guidiville coronary artery of guid[place] heart without angina pectoris documented in this encounter Care Teams Assistant Associate Professor Relationship Specialty Start Date End Date Carole Ravi PA-C [facility] [address] [place] [phone] PCP - General PHYSICIAN CLASP MACHINE OPERATOR 01/26/19 Carroll Self MD Three [facility]. [address] [address] [place] Corporate Trainer CARDIOVASCULAR DISEASE 01/19/19 documented as of this encounter
--- OUTSIDE RECORDS SUMMARY | 2024-07-28 06:51 | XMS_ITS | Encounter Summary ---
Author Organization [facility] Address [address] [place] [address]. 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 No / Unsure 07/13/2020 8:31 AM CUT OFF SAW OPERATOR documented as of this encounter Medications at [...] st Contact Info) Description 08/31/2024 3:00 PM CUT OFF SAW OPERATOR Office Visit [place] [facility] [address] [place] [phone] Carroll Self MD [facility]. [facility] [address] [place] [address] documented as of this encounter Procedures Procedure Name Priority Date/Time Associated Diagnosis Comments COMPREHENSIVE METABOLIC PANEL Routine 07/13/2020 9:36 AM CUT OFF SAW OPERATOR Coronary artery disease involving um[place]illa tribe coronary artery of um[place]illa tribe heart without angina pectoris LIPID PANEL Routine 07/13/2020 9:36 AM CUT OFF SAW OPERATOR Coronary artery disease involving [place]illa tribe coronary artery of um[place]illa tribe heart without angina pectoris CBC, AUTO, NO DIFF Routine 07/13/2020 9: 36 AM CUT OFF SAW OPERATOR Coronary artery disease involving um[place]illa tribe coronary artery of umatilla tribe heart without angina pectoris CK (CPK) Routine 07/13/2020 9:36 AM CUT OFF SAW OPERATOR Coronary artery disease involving umatilla tribe coronary artery of umatilla tribe heart without angina pectoris documented in this encounter Results * LIPID PANEL (07/13/2020 9:36 AM [facility]) CHOLESTEROL 112 <200.0 MG/DL 07/13/2020 10:47 AM [facility] TRIGLYCERIDES 84 <150 MG/DL 07/13/2020 10:47 AM [facility] HDL 52 >40.0 MG/DL 07/13/2020 10:47 AM [facility] LDL (CALCULATED) 43 <100 MG/DL 07/13/20 20 10:47 AM [facility] NON HDL CHOLESTEROL 60 <130 MG/DL 07/13 10:47 AM [facility] CHOL/HDL RATIO 2.2 0.0 - 4.5 07/13/2020 10:47 AM [facility] VLDL CALCULATION 17 5 - 55 MG/DL 07/13/2020 10:47 AM [facility] LIPID INTERPRETATION 07/13/2020 10:47 AM [facility] Comment: NIH CONCENSUS REPORT [...] ?LDL ? >=160 ?>=130 07/13/2020 9:36 AM CUT OFF SAW OPERATOR us Carroll Self MD LABORATORY Final Resul t [facility] [address] [place] [address], * CK (CPK) (07/13/2020 9:36 AM CUT OFF SAW OPERATOR) CPK 108 39 - 308 U/L 07/13/2020 10:47 AM CUT OFF SAW OPERATOR [facility] 07/13/2020 9:36 AM CUT OFF SAW OPERATOR Carroll Self MD LABORATORY Final Resul t [facility] [address] [place] [address], [place] [phone] * (ABNORMAL) COMPREHENSIVE METABOLIC PANEL (07/13/2020 9:36 AM CUT OFF SAW OPERATOR) GLUCOSE 104(H) 70 - 99 MG/DL 07/13/2020 10:47 AM [facility] BUN 14 7 - 18 MG/DL 07/13/2020 10:47 AM [facility] CREATININE S/P/B 1.13 0.7 - 1.3 MG/DL 07/13/2020 10:47 AM [facility] SODIUM S/P/B 138 136 - 145 MMOL/L 07/13/2020 10:47 AM [facility] POTASSIUM S/P/B 4.4 3.5 - 5.1 MMOL/L 07/13/2020 10:47 AM [facility] CHLORIDE S/P/B 102 100 - 108 MMOL/L 07/13/2020 10:47 AM [facility] CO2 32.5(H) 21 - 32 MMOL/L 07/13/2020 10:47 AM [facility] CALCIUM S/P/B 8.8 8.5 - 10.1 MG/DL 07/13/2020 10:47 AM [facility] BILIRUBIN TOTAL S/P/B 0.7 0.2 - 1.2 MG/DL 07/13/2020 10:47 AM [facility] TOTAL PROTEIN S/P/B 7.4 6.4 - 8.2 G/DL 07/13/2020 10:47 AM [facility] ALBUMIN S/P/B 3.8 3.4 - 5.0 G/DL 07/13/2020 10:47 AM [facility] AST 20 15 - 37 U/L 07/13/2020 10:47 AM [facility] ALT 33 16 - 60 U/L 07/13/2020 10:47 AM [facility] ALKALINE PHOSPHATASE S/P/B 61 50 - 136 U/L 07/13/2020 10:47 AM [facility] ANION GAP 3.5(L) 5 - 15 MMOL/L 07/13/2020 10:47 AM [facility] BUN CREATININE RATIO 12.4 6 - 26 07/13/2020 10:47 AM [facility] A/G RATIO 1.1 1.0 - 2.0 RATIO 07/13/2020 10:47 AM [facility] EGFR NON-AFR. AMER. 74(L) >90 ML/MIN/1.7 3 M2 07/13/2020 10:47 AM [facility] EGFR AFR. AMER. 86(L) >90 ML/MIN/1.7 3 M2 07/13/2020 10:47 AM [facility] Comment: NOTE: eGFR is not calculated for patients <18 years of age. This is an estimated GFR (CKD EPI) and should not be used for calculating drug doses. 07/13/2020 9:36 AM CUT OFF SAW OPERATOR us Carroll Self MD LABORATORY Final Resul t [facility] [address] [place] [address], [place] [phone] * (ABNORMAL) CBC, AUTO, NO DIFF (07/13/2020 9:36 AM CUT OFF SAW OPERATOR) WBC 5.0 4.4 - 11.0 x10'3/uL 07/13/2020 10:31 AM [facility] RBC 4.70 4.50 - 5.90 x10'6/uL 07/13/2020 10:31 AM [facility] HGB 14.0 14.0 - 17.5 G/DL 07/13/2020 10:31 AM [facility] HCT 43.3 41.5 - 50.4 % 07/13/2020 10:31 AM [facility] MCV 92.1 80.0 - 96.0 FL 07/13/2020 10:31 AM [facility] MCH 29.8 26.5 - 31.4 PG 07/13/2020 10:31 AM [facility] MCHC 32.3 31.9 - 34.8 G/DL 07/13/2020 10:31 AM [facility] RDW 14.5(H) 12.3 - 14.3 % 07/13/2020 10:31 AM [facility] PLT 185 151 - 353 x10'3/uL 07/13/2020 10:31 AM [facility] MPV 10.8 9.7 - 11.9 FL 07/13/2020 10:31 AM [facility] 07/13/2020 9:36 AM CUT OFF SAW OPERATOR us Carroll Self MD LABORATORY Final Resul t [facility] [address] [place] [address], documented in this encounter Visit Diagnoses Diagnosis Coronary artery disease involving umatilla tribe coronary artery of umatilla tribe heart without angina pectoris documented in this encounter Care Teams Hot Baller Relationship Specialty Start Date End Date Carole Ravi PA-C [facility] [address] [place] [phone] PCP - General PHYSICIAN SYNTHETIC RESIN OPERATOR 01/26/19 Carroll Self MD [facility]. [address] [address] [place] Utility Worker CARDIOVASCULAR DISEASE 01/19/19 documented as of this encounter
--- OUTSIDE RECORDS SUMMARY | 2024-07-28 06:51 | XMS_ITS | Encounter Summary ---
Author Organization [facility] Address [address] [place] [address]. 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 [facility] [address] [place] [address] documented as of this encounter Visit Diagnoses Not on filedocumented in this encounter Care Teams Supply Chain Technician Relationship Specialty Start Date End Date Carole Ravi PA-C [facility] [address] [place] [phone] PCP - General PHYSICIAN YEAST CULTURE OPERATOR 01/26/19 Carroll Self MD Three [facility]. [facility] [address] [place] [address] Didier Piece Dyer CARDIOVASCULAR DISEASE 01/19/19 documented as of this encounter
--- OUTSIDE RECORDS SUMMARY | 2024-07-28 06:51 | XMS_ITS | Encounter Summary ---
Author Organization [facility] Address [address] [place] [address]. 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. [facility] [address] [place] [address] documented as of this encounter Visit Diagnoses Not on filedocumented in this encounter Care Teams Campus Dean Relationship Specialty Start Date End Date Carole Ravi PA-C [address] [phone] PCP - General PHYSICIAN ASSEMBLY HAND 01/26/[address] [facility]. [facility] [address] [place] [address] [employer] Consulting Project Director CARDIOVASCULAR DISEASE 01/19/19 documented as of this encounter
--- OUTSIDE RECORDS SUMMARY | 2024-07-28 06:51 | XMS_ITS | Encounter Summary ---
Author Organization [facility] Address [address] [place] [address]. [place] [address] [place] [address] Care Team Providers Care Diamond Cleaner Name Role Phone Carroll Self MD Unavailable [phone] Carole Ravi PA-C Primary Care Provider + [phone] Encounter Details Date Type Department Care Team (Latest Contact Info) Description 01/21/2022 Travel Social History Tobacco Use Types Packs/Day [...] st Contact Info) Description 08/31/2024 3:00 PM INK MAKER [facility] [address] [place] [phone] Carroll Self MD [facility]. [place] [address] [place] [address] documented as of this encounter Visit Diagnoses Not on filedocumented in this encounter Care Teams Diamond Cleaner Relationship Specialty Start Date End Date Carole Ravi PA-C [facility] [address] [place] [phone] PCP - General PHYSICIAN ORDER SCHEDULE CLERK 01/26/19 Carroll Self MD Three [facility]. [address] [address] [place] Vice President Of Consulting Services CARDIOVASCULAR DISEASE 01/19/19 documented as of this encounter
--- OUTSIDE RECORDS SUMMARY | 2024-07-28 06:51 | XMS_ITS | Encounter Summary ---
Author Organization [facility] Address [address] [place] [address]. [place], [place] [address] [place] [address] Care Team Providers Care City Superintendent Of Schools Name Role Phone Carroll Self MD Unavailable [phone] Carole Ravi PA-C Primary Care Provider + [phone] Encounter Details Date Type Department Care Team (Late st Contact Info) Description 06/08/2021 10:35 AM CDT - 06/08/2021 11:59 PM T Hospital Encounter [facility] [address] [place] [address] Elodia Alex FNP [address] [phone] Discharge Disposition: Home or Self Care (Routine [...] mouth daily. 90 tablet 2 12/29/2020 06/30/2021 nitroglycerin 0.[address] [...] st Contact Info) Description 08/31/2024 3:00 PM RETAIL PROJECT MERCHANDISER [facility] [place] [facility] [address] [place] [phone] Carroll Self MD [facility]. [facility] [address] [place] [address] documented as of this encounter Procedures Procedure Name Priority Date/Time Associated Diagnosis Comments HEMOGLOBIN, GLYCOSYLATED Routine 06/08/2021 10:54 AM CDT Hyperglycemia documented in this encounter Results * (ABNORMAL) HGB A1C (06/08/2021 10:54 AM CDT) HGB A1C 7.0(H) <5.7 % 06/08/2021 12:29 PM CDT [facility] Comment: INCREASED RISK OF DIABETES <5.7% ?NON-DIABETES 5.7-6.4% INCREASED RISK FOR FUTURE DIABETES > OR = 6.5 CONSISTENT WITH DIABETES STANDARDS OF MEDICAL CARE IN DIABETES-2010 DIABETES CARE, 33(SUPP 1): S1-S61,2010 06/08/2021 10:5 4 AM CDT Elodia Alex ADULT REMEDIAL EDUCATION INSTRUCTOR LABORATORY Final Result [facility] [address] [place] [address], documented in this encounter Visit Diagnoses Diagnosis Hyperglycemia Other abnormal glucose documented in this encounter Care Teams City Superintendent Of Schools Relationship Specialty Start Date End Date Carole Ravi PA-C [facility] [address] [place] [phone] PCP - General PHYSICIAN STEM MAKER 01/26/19 Carroll Self MD [facility]. [facility] [address] [place] [address] Chancellor Cut Plug Packer CARDIOVASCULAR DISEASE 01/19/19 documented as of this encounter
--- OUTSIDE RECORDS SUMMARY | 2024-07-28 06:51 | XMS_ITS | Encounter Summary ---
Author Organization [facility] Address [address] [place] [address]. [place] [address] [place] [address] Care Team Providers Care Access Service Representative Name Role Phone Carroll Self MD Unavailable [phone] Carole Ravi PA-C Primary Care Provider + [phone] Reason for Visit * Reason Comments Coronary Artery Disease Cardiomyopathy Hypertension Lipids Encounter Details Date Type Department Care Team (Late st Contact Info) Description 01/22/2022 9:30 AM CDT [facility] [address] [place] [phone] Carroll Self MD [address] [address] Coronary Artery Disease; Cardiomyopathy; Hypertension; Lipids [...] 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 Patient Education Patient Education Mediterranean Diet About this topic This is a heart healthy diet. It is based on widely used foods and cooking styles from many countries around the [place] Sea. The main pattern for the diet is more plant foods and monounsaturated fats, or good fats, like olive oil. Protein in this diet comes from seafood, legumes, nuts, seeds, and poultry and eggs in lowered amounts. You will also eat more whole grains, vegetables, and fruits and moderate amounts of alcohol are also included. This diet has less red meats, dairy products, and processed foods. What will the results be? Your diet will have less saturated fat, cholesterol, calories, sodium, and added sugars. Your diet will be higher in fiber. This will help to keep your blood sugar steady. This diet lowers the chanceof heart disease and other health problems. What lifestyle changes are needed? If you do not often eat this way, you will need to change your eating habits. Be sure to get regular exercise. It is believed to help the health benefits of this diet. What changes to diet are needed? You may need to limit the amount of red meat and processed foods in your diet. Ask your dietitian for help planning meals that are right for you. What foods are good to eat? Plenty of fish and other seafood Fresh, frozen, or canned fruits and vegetables Nuts and nut butters and dried beans, lentils, or peas Foods high in fiber like whole grains and whole grain products Hazelton oil (good fat), peanut or canola oil, margarine, or spreads that list vegetable oil as the first ingredient and do not contain trans fat or partially hydrogenated oil Small amounts of poultry and eggs What foods should be limited or avoided? Red meats Sweets, desserts, and processed foods Butter, oils, and fats that contain trans fats or are hydrogenated or partially hydrogenated Gravies and sauces What problems could happen? Your weight may rise because your diet will be higher in fat from olive oil and nuts. You may have lower iron levels. Be sure to eat foods rich in iron. Also, eat foods rich in vitamin C. This will help your body take in iron. You may have lower calcium levels because you are eating less dairy products. Ask your doctor if you need to take a calcium supplement. Wine is often thought of as part of a Mediterranean diet. It is not needed and you may choose not to include it. Avoid wine if you are prone to alcohol abuse or are . Also, avoid it if you are at risk for breast cancer, have liver problems, or have other illnesses that make it important foryou to not have alcohol. When do I need to call the doctor? If you have any concerns about your diet Where can I learn more? Academy of Nutrition and Dietetics http://www.eatright.org/resource/food/oufsjbfe-phm-evon/vkbqbct-dxcw-bpi-trends/ blsj-ds-mzruxzrxdhomi [place] Heart Association https://www.heart.org/en/healthy-living/healthy-eating/eat-smart/nutrition-basic s/mediterranean-diet Last Reviewed Date 2021-05-15 Consumer Information Use and Disclaimer This generalized information is a limited summary of diagnosis, treatment, and/or medication information. It is not meant to be comprehensive and should be used as a tool to help the user understand and/or assess potential diagnostic and treatment options. It does NOT include all information about conditions, treatments, medications, side effects, or risks that may apply to a specific patient. Itis not intended to be medical advice or a substitute for the medical advice, diagnosis, or treatment of a health care provider based on the health care provider's examination and assessment of a patient???s specific and unique circumstances. Patients must speak with a health care provider for complete information about their health, medical questions, and treatment options, including any risks orbenefits regarding use of medications. This information does not endorse any treatments or medications as safe, effective, or approved for treating a specific patient. UpToDate, Inc. and its affiliates disclaim any warranty or liability relating to this information or the use thereof. The use of this information is governed by the Terms of Use, available at https://www.StrategyEye.com/en/know/keixznyo-cmesvdnjwnagc-gxjho Copyright Copyright ?? 2021 [employer]. and its affiliates and/or licensors. All rights reserved. documented in this encounter Progress Notes * Carroll Self MD - 01/22/2022 9:30 AM CDT Reason for Visit: Coronary Artery Disease, Cardiomyopathy, Hypertension, and Lipids History of Present Illness: Spencer Chaudhari is a 56-year-old male with a past medical history of hyperlipidemia and coronary artery disease here today for follow up of CAD. In January 2019 was on a family vacation at [email or web address] in [place] when he developed worsening SOB/CP. Had been [...] episodes of chest pressurein the last 6 moths. All while walking at work, all after having a meal. All improved with one SL NTG. No issues while on a treadmill, otherwise feeling well. Currently doing 30 minutes at 1.8MPH with a 2.5% incline. No new SOB. Frustrated by lack of weight loss. Tolerating meds well. Labs: Lab Results Component [...] get worse or more frequent. HLP - Continue on HI statin, LDL < 70. New labs pending HTN - Good HTN control, no changes [...] MG tablet, TAKE 1 TABLET BY MOUTH 2 TIMES DAILY., Disp: 180 tablet, Rfl: 1 ??? lactobacillus capsule, Take 1 capsule by mouth 2 (two) times daily with meals., Disp: , Rfl: ??? metoprolol succinate ER 100 MG 24 hr tablet, Take 1 tablet (100 mg total) by mouth daily., Disp: 90 tablet, Rfl: 2 ??? NITROGLYCERIN 0.4 MG SL tablet, PLACE 1 TABLET UNDER THE TONGUE EVERY 5 MINUTES NEEDED FOR CHEST PAIN (MAX 3RD DOSE, THEN CALL 911)., Disp: 25 tablet, Rfl: 1 ??? rosuvastatin 40 MG tablet, Take 1 tablet (40 mg total) by mouth nightly at bedtime., Disp: 90 tablet, Rfl: 1 ??? SYMBICORT 160-4.5 MCG/ACT inhaler, 2 (two) times a day., Disp: , Rfl: ??? tadalafil (CIALIS) 20 MG tablet, Take 1 tablet (20 mg total) by mouth daily as needed for Erectile Dysfunction., Disp: 10 tablet, Rfl: 1 ??? TELMISARTAN 40 MG tablet, TAKE 1 TABLET BY MOUTH EVERY DAY, Disp: 90 tablet, Rfl: 0 ??? VICTOZA 18 MG/3ML injection, INJECT 1.8MG [...] Former Smoker Quit date: 07/1991 Years since quittin.5 ??? Smokeless tobacco: Former User Types: Chew [...] new or significant memory loss. Filed Vitals: 01/22/22 0921 BP: 126/84 Pulse: 72 Weight: 133.4 kg (294 lb) Height: 6' 2 (1.88 m) Body mass index is 37.75 kg/m??. Physical Exam Constitutional: No distress. HENT: [...] Comments: Diagnoses/Impression: 1. Coronary artery disease involving kaw coronary artery of kaw heart without angina pectoris 2. Essential hypertension 3. Dyslipidemia PINNACLE Documentation Completed: Coronary Artery Disease Referring Provider: No ref. provider found PCP: CAROLE RAVI PA-C documented in this encounter Plan of Treatment Upcoming Encounters Date Type Department Care Team (Late st Contact Info) Description 08/31/2024 3:00 PM GAS BRAZER Office Visit [facility] [address] [phone] Carroll Self MD [facility]. [address] [phone] documented as of this encounter Visit Diagnoses Diagnosis Coronary artery disease involving kaw coronary artery of kaw heart without angina pectoris- Primary Essential hypertension Unspecified essential hypertension Dyslipidemia Other and unspecified hyperlipidemia documented in this encounter Care Teams Access Service Representative Relationship Specialty Start Date End Date Carole Ravi PA-C [facility] [address] [place] [phone] PCP - General PHYSICIAN FINANCIAL SERVICES REPRESENTATIVE 01/26/19 Carroll Self MD [facility]. [address] [address] [employer] Accounting Manager CARDIOVASCULAR DISEASE 01/19/19 documented as of this encounter
--- OUTSIDE RECORDS SUMMARY | 2024-07-28 06:51 | XMS_ITS | Encounter Summary ---
Author Organization [facility] Address [address] [place] [address]. [place], [place] [address] [place] [address] Care Team Providers Care Associate Professor Of Archaeology Name Role Phone Carroll Self MD Unavailable [phone] Carole Ravi PA-C Primary Care Provider + [phone] Encounter Details Date Type Department Care Team (Late Contact Info) Description 02/02/2019 Scan [facility] at [address] [address] Scanned, Documents Social History Tobacco [...] st Contact Info) Description 08/31/2024 3:00 PM BIOFUELS PLANT SUPERINTENDENT [facility] [address] [place] [phone] Carroll Self MD [facility]. [address] [phone] documented as of this encounter Visit Diagnoses Not on filedocumented in this encounter Care Teams Associate Professor Of Archaeology Relationship Specialty Start Date End Date Carole Ravi PA-C [address] [address] PCP - General PHYSICIAN CUFF MAKER 01/26/19 Carroll Self MD [facility]. [address] [address] [place] Registered Nurse Rn CARDIOVASCULAR DISEASE 01/19/19 documented as of this encounter
--- OUTSIDE RECORDS SUMMARY | 2024-07-28 06:51 | XMS_ITS | Encounter Summary ---
Author Organization [facility] Address [address] [place] [address]. 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 [address] [address] documented as of this encounter Visit Diagnoses Not on filedocumented in this encounter Care Teams Automatic Fabric Cutter Relationship Specialty Start Date End Date Carole Ravi PA-C [address] [phone] PCP - General PHYSICIAN SOLE TRIMMER 01/26/19 Carroll Self MD Three [facility]. [address] [address] Didier Orchestra Musician CARDIOVASCULAR DISEASE 01/19/19 documented as of this encounter
--- OUTSIDE RECORDS SUMMARY | 2024-07-28 06:54 | XMS_ITS | Encounter Summary ---
Author Organization [facility] Address [address] [place] [address] Care Team Providers Care Ceramic Chemist Name Role Phone Donovan Gamez MD Primary Care Provider Reason for Visit * Reason Onset Date Comments Case Management 08/26/2020 Radha Encounter Details Date Type Department Care Team (Late st Contact Info) Description 08/26/2020 Patient Outreach [facility] Outpatient Care Management - [place] [address] Fourth Floor [place], [place] [phone] Nai Saleem RN Case Management ([facility]) Social History Tobacco Use Types Packs/Day Years Used Date Smoking Tobacco: Never Assessed Sex and Gender Information Value Date Recorded Sex Assigned at Not on file Gender Identity Not on file Sexual Orientation Not on file documented as of this encounter Progress Notes * Nai Saleem RN - 08/29/2020 1:14 PM CST Stated that he is positive for COVID-19. He tested at [facility] in [place]. His is also positive. OfferedCOVID texting/monitoring program. He stated that he has some general aches but feels ok at this point. Encouraged him to call if he or his would like to participate in the monitoring system or if he needs support. Will reach out in a few weeks. SIMRAN Carvajal Team Guide [address] [place], [place] [address] [place] [address] ESE LANGUAGE PROFESSOR * Nai Saleem RN - 08/26/2020 4:01 PM CST He and his family exposed to COVID, will be tested at [facility] this evening. CM will call on Saturday to follow up. Explained COVID texting/monitoring program, will discuss Saturday. Aliyah Saleem RN [facility] Team Guide [address] [place], [place] [address] [place] [address] ESE LANGUAGE PROFESSOR documented in this encounter Plan of Treatment Not on file documented as of this encounter Visit Diagnoses Not on filedocumented in this encounter Care Teams Ceramic Chemist Relationship Specialty Start Date End Date Donovan Gamez MD [address] [place] [address] PCP - General Family Practice 03/13/19 documented as of this encounter
--- OUTSIDE RECORDS SUMMARY | 2024-07-28 06:54 | XMS_ITS | Encounter Summary ---
Author Organization Address [address] [place] [address] Care Team Providers Care Machine Operator Transplanter Name Role Phone Unavailable Primary Care Provider Unavailabl e Reason for Visit * Reason Onset Date Comments Case Management 02/10/2019 [facility] Encounter Details Date Type Department Care Team ([facility] Contact Info) Description 02/10/2019 Patient Outreach [facility] Outpatient Care Management - [place] [address] Fourth [address] [place], [place] [phone] Nai Saleem RN Case Management ([facility]) Social History Tobacco Use Types Packs/Day Years Used Date Smoking Tobacco: Never Assessed Sex and Gender Information Value Date Recorded Sex Assigned at Not on file Gender Identity Not on file Sexual Orientation Not on file documented as of this encounter Progress Notes * Nai Saleem RN - 02/11/2019 4:09 PM CDT Spoke to patient about in-network options including [facility]. He stated that hewill follow up with Dr. Sweet, certified pharmacist assistant at [facility] and wants to stay in network after discussing with . Call placed to Dr. Sweet's office and they are taking new patients. Member requested information sent to his personal email. CM explained once email leaves [email or web address] system cannot guarantee it remains private. He stated he understood and wanted it sent. We discussed the benefit of using [employer]. He stated that he would like to get [facility]. Link sent. Email sent with Dr. Sweet's contact information, [facility] contact information as well as web link to website. [facility] cardiology web link sent as well. We agreed to speak next week and see if the process is going smoothly and he agreed to reach out toCM if he runs into questions or concerns. Aliyah Saleem RN Case Manager [facility] Care Management * Nai Saleem RN - 02/10/2019 12:12 PM CDT Call placed to member with no answer. Message left asking for return call with CM phone number. Aliyah Saleem RN Case Manager [facility] Care Management documented in this encounter Plan of Treatment Not on file documented as of this encounter Visit Diagnoses Not on filedocumented in this encounter
--- OUTSIDE RECORDS SUMMARY | 2024-07-28 06:54 | XMS_ITS | Encounter Summary ---
Author Organization [facility] Address [address] [place] [address] Care Team Providers Care Master Hearth Technician Name Role Phone Donovan Gamez MD Primary Care Provider Reason for Visit * Reason Onset Date Comments Case Management 08/06/2019 [facility] Encounter Details Date Type Department Care Team (Late st Contact Info) Description 08/06/2019 Patient Outreach [facility] Outpatient Care [facility] [place] [address] Fourth Floor [place], [place] [phone] Nai Saleem RN Case Management ([facility]) Social History Tobacco Use Types Packs/Day Years Used Date Smoking Tobacco: Never Assessed Sex and Gender Information Value Date Recorded Sex Assigned at Not on file Gender Identity Not on file Sexual Orientation Not on file documented as of this encounter Progress Notes * Nai Saleem RN - 08/06/2019 11:00 AM CST Member has completed cardiac rehab. Stated that he is doing well. We discussed goals that he has. He would like to lose weight and get in shape. Has B/P cuff at home and is checking his blood pressure regularly. Has a treadmill, bands, and free weight loss apps. He expressed a desire to continue toreceive calls from . Next call we will discuss how he is doing on his goals. Aliyah Saleem RN Case Manager [facility] Care Management TING DIRECTOR documented in this encounter Plan of Treatment Not on file documented as of this encounter Visit Diagnoses Not on filedocumented in this encounter Care Teams Master Hearth Technician Relationship Specialty Start Date End Date Donovan Gamez MD [address] [place] [address] PCP - General Family Practice 03/13/19 documented as of this encounter
--- OUTSIDE RECORDS SUMMARY | 2024-07-28 06:54 | XMS_ITS | Encounter Summary ---
Author Organization [facility] Address [address] [place] [address] Care Team Providers Care Facilities Maintenance Technician Name Role Phone Donovan Gamez MD Primary Care Provider Reason for Visit * Reason Onset Date Comments Case Management 10/08/2019 [facility] Encounter Details Date Type Department Care Team (Late st Contact Info) Description 10/08/2019 Patient Outreach [facility] Outpatient Care [facility] - [place] [address] [place] [address] Nai Saleem RN Case Management ([facility]) Social History Tobacco Use Types Packs/Day Years Used Date Smoking Tobacco: Never Assessed Sex and Gender Information Value Date Recorded Sex Assigned at Not on file Gender Identity Not on file Sexual Orientation Not on file documented as of this encounter Progress Notes * Nai Saleem RN - 10/08/2019 4:39 PM CST Call placed to member with no answer. Message left asking for return call with CM phone number. Aliyah Saleem RN Case Manager [facility] Management R HELPER documented in this encounter Plan of Treatment Not on file documented as of this encounter Visit Diagnoses Not on filedocumented in this encounter Care Teams Facilities Maintenance Technician Relationship Specialty Start Date End Date Donovan Gamez MD [address] [place] [address] [place] [phone] PCP - General Family Practice 03/13/19 documented as of this encounter
--- OUTSIDE RECORDS SUMMARY | 2024-07-28 06:54 | XMS_ITS | Encounter Summary ---
Author Organization [facility] Address [address] [place] [address] Care Team Providers Care Compressor Station Operator Name Role Phone Unavailable Primary Care Provider Unavailabl e Reason for Visit * Reason Onset Date Comments Case Management [facility] Encounter Details Date Type Department Care Team (Late st Contact Info) Description 02/04/2019 Patient Outreach [facility] - [address] Fourth Floor [place], [place] [phone] Nai Saleem RN Case Management ([facility]) Social History Tobacco Use Types Packs/Day Years Used Date Smoking Tobacco: Never Assessed Sex and Gender Information Value Date Recorded Sex Assigned at Not on file Gender Identity Not on file Sexual Orientation Not on file documented as of this encounter Progress Notes * Nai Saleem RN - 02/04/2019 1:29 PM CDT Call placed to member with no answer. Message left asking for return call with CM phone number. Aliyah Saleem RN Case Manager [facility] Management documented in this encounter Plan of Treatment Not on file documented as of this encounter Visit Diagnoses Not on filedocumented in this encounter
--- OUTSIDE RECORDS SUMMARY | 2024-07-28 06:54 | XMS_ITS | Encounter Summary ---
Author Organization [facility] Address [address] [place] [address] Care Team Providers Care Cold Rolling Coordinator Name Role Phone Unavailable Primary Care Provider Unavailabl e Reason for Visit * Reason Onset Date Comments Asthma 10/09/2018 Initial Outreach Encounter Details Date Type Department Care Team (Late st Contact Info) Description 10/09/2018 Patient Outreach [facility] Hammer Heater Management [address] [place] [address], [address] [place] [address] Lita Schmitz RN Asthma (Initial Outreach) Social History Tobacco Use Types Packs/Day Years Used Date Smoking Tobacco: Never Assessed Sex and Gender Information Value Date Recorded Sex Assigned at Not on file Gender Identity Not on file Sexual Orientation Not on file documented as of this encounter Progress Notes * Lita Schmitz RN - 10/09/2018 9:34 AM CST Spoke with patient and introduced Disease/Case Management services Patient denied Asthma diagnosis, and denied other health questions/concerns at this time Patient reported he was established with PCP in [place], [place] (Dr. Gamez) and provider was in-network Educated him about Nurse regional economist services and how to contact Lita Schmitz RN BSN CCP Disease Gis Developer [address] [address] Office: [phone] [email or web address] PREVENTION CHIEF documented in this encounter Plan of Treatment Not on file documented as of this encounter Visit Diagnoses Not on filedocumented in this encounter
--- OUTSIDE RECORDS SUMMARY | 2024-07-28 06:54 | XMS_ITS | Encounter Summary ---
Author Organization [facility] Address [address] [place] [address] Care Team Providers Care Aviation Technician Name Role Phone Donovan Gamez MD Primary Care Provider [phone] Reason for Visit * Reason Onset Date Comments Case Management 01/12/2020 IOCPCM Encounter Details Date Type Department Care Team (Late st Contact Info) Description 01/12/2020 Patient Outreach [facility] Outpatient Care [facility] [place] [address] [place] [address] Nai Saleem RN Case Management ([facility]) Social History Tobacco Use Types Packs/Day Years Used Date Smoking Tobacco: Never Assessed Sex and Gender Information Value Date Recorded Sex Assigned at Not on file Gender Identity Not on file Sexual Orientation Not on file documented as of this encounter Progress Notes * Nai Saleem RN - 01/12/2020 4:19 PM CDT Call placed to member with no answer. Message left asking for return call with CM phone number. Aliyah Saleem RN Case Manager [facility] documented in this encounter Plan of Treatment Not on file documented as of this encounter Visit Diagnoses Not on filedocumented in this encounter Care Teams Aviation Technician Relationship Specialty Start Date End Date Donovan Gamez MD [address] [place] [address] [place] [phone] PCP - General Family Practice 03/13/19 documented as of this encounter
--- OUTSIDE RECORDS SUMMARY | 2024-07-28 06:54 | XMS_ITS | Encounter Summary ---
Author Organization [facility] Address [address] [place] [address] Care Team Providers Care Mobility Manager Name Role Phone Donovan Gamez MD Primary Care Provider Reason for Visit * Reason Onset Date Comments Case Management 03/18/2019 IOCPCM Encounter Details Date Type Department Care Team (Late st Contact Info) Description 03/18/2019 Patient Outreach [facility] Outpatient Care [facility] [place] [address] [place] [address] Nai Saleem RN Case Management ([facility]) Social History Tobacco Use Types Packs/Day Years Used Date Smoking Tobacco: Never Assessed Sex and Gender Information Value Date Recorded Sex Assigned at Not on file Gender Identity Not on file Sexual Orientation Not on file documented as of this encounter Progress Notes * Nai Saleem RN - 03/18/2019 10:57 AM CDT Call placed to member to follow up on Cardiac Rehab status with no answer. Message left asking for return call with phone number. Aliyah Saleem RN Case Manager [facility] Management documented in this encounter Plan of Treatment Not on file documented as of this encounter Visit Diagnoses Not on filedocumented in this encounter Care Teams Mobility Manager Relationship Specialty Start Date End Date Donovan Gamez MD [address] [place] [phone] PCP - General Family Practice 03/13/19 documented as of this encounter
--- OUTSIDE RECORDS SUMMARY | 2024-07-28 06:54 | XMS_ITS | Encounter Summary ---
Author Organization [facility] Address [address] [place] [address] Care Team Providers Care Principal Technical Architect Name Role Phone Unavailable Primary Care Provider Unavailabl e Reason for Visit * Reason Onset Date Comments Case Management 02/20/2019 [facility] Encounter Details Date Type Department Care Team (Late st Contact Info) Description 02/20/2019 Patient Outreach [facility] Outpatient Care Management - [address] Fourth Floor [place], [place] [id number] Nai Saleem RN Case Management ([facility]) Social History Tobacco Use Types Packs/Day Years Used Date Smoking Tobacco: Never Assessed Sex and Gender Information Value Date Recorded Sex Assigned at Not on file Gender Identity Not on file Sexual Orientation Not on file documented as of this encounter Progress Notes * Nai Saleem RN - 02/20/2019 11:35 AM CDT Received call from member who stated that he cancelled his appointment at [facility] rehab. He has CM email regarding providers at [facility] and stated he will set up an appointment with Dr. Sweet, Cardiology at [place]. asked if he would watch a video on his condition and he agreed to having it sent to him. CM encouraged him to call back if has any problems making the appointment. He rhodes d diet review in the hospital after his stent placement and repeated the information to CM. He has a good understanding of proper diet. Aguila sent: Education Acute Myocardial Infarction: Lifestyle Changes. Will reach out in a couple of weeks to check on status with architecture drafter and rehab. Aliyah Saleem RN Case Manager [facility] Care Management documented in this encounter Plan of Treatment Not on file documented as of this encounter Procedures Procedure Name Priority Date/Time Associated Diagnosis Comments EDUCATION ACUTE MYOCARDIAL INFARCTION: LIFESTYLE CHANGES Routine 02/20/2019 12:06 PM CDT documented in this encounter Results * EDUCATION ACUTE MYOCARDIAL INFARCTION: LIFESTYLE CHANGES - AGUILA (02/20/2019 12:06 PM CDT) Education Name ACUTE MYOCARDIAL INFARCTION: LIFESTYLE CHANGES AGUILA EDUCATION INTERFACE Education URL [email or web address] AGUILA EDUCATION INTERFACE EDUCATION ACCESS CODE [id number] AGUILA EDUCATION INTERFACE EDUCATION ISSUE DATE Feb 20, 2019 AGUILA EDUCATION INTERFACE EDUCATION START DATE AGUILA EDUCATION INTERFACE EDUCATION COMPLETED DATE This program was not started and flagged as on: Mar 23, 2019 AGUILA EDUCATION INTERFACE EDUCATION EXPIRATION DATE Mar 22, 2019 AGUILA EDUCATION INTERFACE EDUCATION MESSAGE EVENT AGUILA EDUCATION INTERFACE 02/20/2019 12:0 6 PM CDT Donovan Gamez MD EXTERNAL EDUCATION ORDERABLES AGUILA EDUCATION INTERFACE documented in this encounter Visit Diagnoses Not on filedocumented in this encounter
--- OUTSIDE RECORDS SUMMARY | 2024-07-28 06:54 | XMS_ITS | Encounter Summary ---
Author Organization [facility] Address [address] [place] [address] Care Team Providers Care Production Control Planner Name Role Phone Donovan Gamez MD Primary Care Provider [phone] Reason for Visit * Reason Onset Date Comments Case Management 04/24/2019 IOCPCM Encounter Details Date Type Department Care Team (Late st Contact Info) Description 04/24/2019 Patient Outreach [facility] Outpatient Care [facility] [place] [address] [place] [address] Nai Saleem RN Case Management ([facility]) Social History Tobacco Use Types Packs/Day Years Used Date Smoking Tobacco: Never Assessed Sex and Gender Information Value Date Recorded Sex Assigned at Not on file Gender Identity Not on file Sexual Orientation Not on file documented as of this encounter Progress Notes * Nai Saleem RN - 04/24/2019 3:33 PM CDT Patient reports that he started cardiac rehab and that it is going well. He goes three days per week. We discussed goal setting but her states he would like to get through cardiac rehab first. No questions or concerns today. CM will call again in a few weeks, he agrees with this plan. Aliyah Saleem RN Case Manager [facility] Care Management documented in this encounter Plan of Treatment Not on file documented as of this encounter Visit Diagnoses Not on filedocumented in this encounter Care Teams Production Control Planner Relationship Specialty Start Date End Date Donovan Gamez MD [address] [place] [address] [place] [phone] PCP - General Family Practice 03/13/19 documented as of this encounter
--- OUTSIDE RECORDS SUMMARY | 2024-07-28 06:54 | XMS_ITS | Encounter Summary ---
Author Organization [facility] Address [address] [place] [address] Care Team Providers Care Roving Marker Name Role Phone Unavailable Primary Care Provider Unavailabl e Reason for Visit * Reason Onset Date Comments Case Management 02/11/2019 [employer] Encounter Details Date Type Department Care Team (Late st Contact Info) Description 02/11/2019 Patient Outreach [facility] Outpatient Care Management - [address] [place] [address] Nai Saleem RN Case Management ([facility]) Social History Tobacco Use Types Packs/Day Years Used Date Smoking Tobacco: Never Assessed Sex and Gender Information Value Date Recorded Sex Assigned at Not on file Gender Identity Not on file Sexual Orientation Not on file documented as of this encounter Progress Notes * Nai Saleem RN - 02/11/2019 9:45 AM CDT Spoke to member regarding OON intensive cardiac therapy ordered by his upholsterer outside who is OON also. Provided in-network upholsterer outside information but he stated that he wants to stay with this provider. He couldn't remember the name but is going to look it up. Stated he was referred to [facility] whoinformed him that his insurance does not cover intensive cardiac therapy. CM spoke to Meghan at [facility] who stated they do not provide intensive cardiac rehab. Will research and call member back. documented in this encounter Plan of Treatment Not on file documented as of this encounter Visit Diagnoses Not on filedocumented in this encounter
--- OUTSIDE RECORDS SUMMARY | 2024-07-28 06:54 | XMS_ITS | Encounter Summary ---
Author Organization [employer] [facility] Address [address] [place] [address] Care Team Providers Care Electrical Laboratory Technician Name Role Phone Donovan Gamez MD Primary Care Provider Reason for Visit * Reason Onset Date Comments Case Management 05/18/2020 IOCP Encounter Details Date Type Department Care Team (Late st Contact Info) Description 05/18/2020 Patient Outreach [facility] Care [facility] [place] [address] [place] [address] Nai Saleem RN Case Management ([facility]) Social History Tobacco Use Types Packs/Day Years Used Date Smoking Tobacco: Never Assessed Sex and Gender Information Value Date Recorded Sex Assigned at Not on file Gender Identity Not on file Sexual Orientation Not on file documented as of this encounter Progress Notes * Nai Saleem RN - 05/18/2020 4:39 PM CDT Call placed to member with no answer. Unable to leave message, mailbox was full. Will attempt to outreach in a few weeks. Aliyah Saleem RN Care Management In Partnership with [address] [place] [address] [email or web address] documented in this encounter Plan of Treatment Not on file documented as of this encounter Visit Diagnoses Not on filedocumented in this encounter Care Teams Electrical Laboratory Technician Relationship Specialty Start Date End Date Donovan Gamez MD [address] [place] [address] Amarjit, [place] [phone] PCP - General Family Practice 03/13/19 documented as of this encounter
--- OUTSIDE RECORDS SUMMARY | 2024-07-28 06:54 | XMS_ITS | Continuity of Care Document ---
Author Organization [facility] Address [address] [place] [phone] Phone Care Team Providers Care Sap Sd Analyst Name Role Phone Italo Costa MD Unavailable Unavailable Allergies, Adverse Reactions, Alerts Substance Reaction Status Criticality celecoxib Active No Information Medications Medication Instructions Dosage Effective Dates (start - stop) Status Comments Micardis 40 mg tablet take 1 tablet po QHS 2015 - Active 1+3 Cialis 20 mg tablet take 1 tablet by ORA L route every week as needed 20 MG - Active Procedures Procedure Date OFFICE/OUTPATIENT VISIT, EST NRV CNDJ TEST 13/> STUDIES Needle Emg W/muscle Testing 5 Or More Mu scles POLYSOMNOGRAPHY W/CPAP OFFICE/OUTPATIENT VISIT, EST POLYSOMNOGRAPHY, 4 OR MORE OFFICE/OUTPATIENT VISIT, EST OFFICE/OUTPATIENT VISIT, NEW Advance Directives Directive Yes / No Effective Date File Name No Information Encounters Encounter Description Practice Location Reason(s) For Visit Diagnoses Date Provider Providers Copied on Encounter Italo [facility] [address] [place] [address], [id number] , tel:[phone] Italo [facility] [place] No Information 7 Igor Puckett. [address] [place] [address], [address] [place] [address] , . tel: [phone] OFFICE/OUTPA TIENT VISIT, EST Italo [facility] M[facility] [address] [place] [address], [address] [place] [address] , tel: [phone] Italo Costa M.D[facility] [place] Follow Up of Sleep problems (chief complaint) Back pain (chief complaint) Obstructive sleep apneaCervical disc disorder w radiculopathy, mid-cervical regionIntervertebra l disc disorders w radiculopathy, lumbar region 6 Igor Puckett. [address] [place] [address], [address] [place] [address] , . tel: [phone] Referring Provider: Radha Collier , [address] [place] [address], [id number]. Italo Costa M[facility] [address] [place] [address], [address] [place] [address] , tel: [phone] Italo Costa M[facility] [place] No Information 6 Igor Puckett. [address] [place] [address], [address] [place] [address] , . tel: [phone] Italo Costa M.D[facility] [address] [place] [address], [address] [place] [address] , tel: [phone] Italo Costa M.D[facility] [place] Follow Up of Back pain (chief complaint) Intervertebral disc disorders w radiculopathy, lumbar regionObstructive sleep apneaCancer of lung 6 Igor Puckett. [address] [place] [address], [address] [place] [address] , . tel: [phone] Referring Provider: Radha Collier , [address] [place] [address], [id number]. Italo Costa M.D[facility] [address] [place] [address], [id number] , tel:[phone] Italo [facility] M[facility] Alexei Smalls Follow Up of Sleep apnea (follow up) (chief complaint) Intervertebral disc disorders w radiculopathy, lumbar regionCervical disc disorder w radiculopathy, mid-cervical regionObstructive sleep apnea 6 Igor Italo. [address] [place] [address], [id number] , [place]. tel:[phone] Referring Provider: Radha Collier , [address] [place] [address], [id number]. Italo Costa M[facility] [address] [place] [address], [id number] , tel:[phone] [facility] No Information 6 Igor Puckett. [address] [place] [address], [id number] , [place]. [phone] Referring Provider: Italo Costa, [address] [place] [address], [id number] . tel:[phone] OFFICE/OUTPA TIENT VISIT, EST Italo Costa M.D[facility].A[facility] [address] [place] [address], [id number] , tel:[phone] Italo Costa M.D[facility] P.A[facility] [place] Sleep apnea (follow up) (chief complaint) Cervical disc disorder w radiculopathy, mid-cervical regionIntervertebra l disc disorders w radiculopathy, lumbar regionObstructive sleep apneaCancer of lung 6 Igor Craigny. [address] [place] [address], [id number] , [place]. tel:[phone] Referring Provider: Radha Collier , [address] [place] [address], [id number]. Italo Costa M.D[facility] P.[facility] [address] [place] [address], [id number] , [place] tel: [phone] [facility] No Information 5 Igor Puckett. [address] [place] [address], [id number] , [place]. tel: [phone] Referring Provider: Italo Costa, [address] [place] [address], [id number] . tel:[phone] OFFICE/OUTPA TIENT VISIT, EST Italo Costa M.D[facility] P.A[facility] [address] [place] [address], [id number] , [place] tel: [phone] Italo Costa M[facility] [place] Sleep apnea (follow up) (chief complaint) Cervical disc disorder w radiculopathy, mid-cervical regionIntervertebra l disc disorders w radiculopathy, lumbar regionObstructive sleep apnea 5 Igor Italo. [address] [place] [address], [id number] , [place]. tel: [phone] Referring Provider: Radha Collier , [address] [place] [address], [id number]. OFFICE/OUTPA TIENT VISIT, NEW Italo Costa M.D[facility] [address] [place] [address], [id number] , [place] tel: [phone] Italo Costa M.D[facility] P.A[facility] [place] Sleep apnea (consult) (chief complaint) Obstructive sleep apneaCervical disc disorder w radiculopathy, mid-cervical regionIntervertebra l disc disorders w radiculopathy, lumbar region 5 Igor Italo. [address] [place] [address], [id number] , [place]. tel: [phone] Referring Provider: Radha Collier , [address] [place] [address], [id number]. Family History Family Member Type Diagnosis Age At Onset Mother Problem (finding) hypertension Mother Problem (finding) Cardiovascular disease Sister Problem (finding) Alive and well Mother Problem (finding) Alive and well Father Problem (finding) Alive and well Brother Problem (finding) Alive and well Mother Problem (finding) malignant neop lasm of breast in first degree relative Payers Payer name Insurance type Covered green party ID [place] gr[place](s) [employer] [id number] Social History Type Description Quantity Date Captured Comments Sex Male Smoking Status No Information Chief Complaint And Reason For Visit No Information Reason For Referral Reason For Referral No Information History Of Present Illness Encounter Date Complaint History Of Prese nt Illness Back pain Onset: gradual w ithout injury. Severity level is moderate. The problem is fluctuating. It occurs occasionally. Location of pain is lower back. Pain is radiated to the left ankle, right ankle, right foot and right thigh.The patient describes the pain as dull and throbbing. Context: bending over, sitting and twisting movement. Symptoms are aggravated by daily activities, jumping, lifting, pushing, sitting and twisting. Symptoms are relieved by over the counter medication and rest. Additional information: History of back, right hip and leg pain. MRI shows herniated disc at L5-S1 with discogenic changes at other levels but no major surgical lesion. Follow Up of Sleep problems The patient presents for insomnia. The symptoms are unchanged. The patient has the following risk factors for insomnia: use of alcohol. The patient is experiencing gasping during sleep. Follow Up of Back pain Onset: gr adual without injury. Severity level is moderate. The problem is fluctuating. It occurs occasionally. Location of pain is lower back. Pain is radiated to the right ankle, right foot and right thigh.The patient describes the pain as an ache, deep, diffuse, discomforting and dull. Symptoms are aggravated by daily activities, extension, flexion, jumping, lifting, lying/rest, pushing, standing and twisting. Additional information: MRI shows spondylolisthesis L4-5. Planes mainly of pain in right hip and leg and some numbness in both feet. On profile [employer] for many years. Had to give up his sports activities because of increasing back pain. Follow Up of Sleep a pnea (follow up) The patient presents for follow up of hypersomnia. The patient's symptoms began gradually. The symptoms are unchanged. Relevant history: a BMI of 29.53 and 13 occurrences of apnea-hypopnea per hour. The patient is also experiencing awakening with shortness of breath, gasping during sleep, headache, irritability, poor or worsening memory, snoring (reported by pt.) and sore throat upon awakening. The patient denies difficulty concentrating, insomnia, nasal congestion, snoring (Symptom Master), weight gain and wheezing. Additional information: Titration study showed that he responds to BiPAP at 10/6 cmw and this treatment does not require oxygen supplements. Sleep apnea (follow up) (comments) Sleep study showed AHI of 13 and nocturnal hypoxia with O2 saturations of 82% episodically throughout the study Sleep apnea (follow up) The [facility] ent presents for follow up of hypersomnia. The symptoms are unchanged. The patient reports improvement in continued initial symptoms since the last visit. Relevant history: a BMI of 29.27 and awakens 2 times per night. The patient is also experiencing awakening with shortness of breath, gasping during sleep, headache, irritability, poor or worsening memory and snoring (reported by pt.). The patient denies difficulty concentrating, insomnia, nasal congestion, snoring (Symptom Master), weight gain and wheezing. 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 Reports dyspnea on exertion progressive over the last 2 years. Sleep apnea (follow up) The [facility] ent presents for follow up of hypersomnia. The patient's symptoms began gradually. The symptoms are unchanged. The patient reports improvement in apnea or irregular nighttime breathing and worsening of previously reported symptoms since the last visit. Relevant history: a BMI of 29.02 and awakens 1 times per night. The apnea is worsened by significant weight loss and sleeping supine. The apnea is improved with sleeping prone and weight loss. The patient is also experiencing awakening with shortness of breath, difficulty concentrating, gasping during sleep, nasal congestion, non-restorative sleep, poor or worsening memory, snoring (reported by pt.), snoring (Symptom Master), snoring (reported by others) and weight gain. The patient denies insomnia and wheezing. Additional information: sleep study scheduled in 2 weeks. Reports elevation of blood pressure over the last month, on no medication. Sleep apnea (consult) The sympto ms are severe and worsening. Relevant history: takes 1 hours to fall asleep per night, awakens 2 times per night, uses CPAP 0 hours per night, atrial fibrillation and hypertension. Denies aggravating factors. The patient is also experiencing awakening with shortness of breath, difficulty concentrating, difficulty initiating sleep, gasping during sleep, headache, poor or worsening memory, sleep attacks and snoring (reported by others). The patient denies insomnia, nasal congestion or wheezing. Additional information: reports neck pain, left shoulder pain and bilateral hand numbness. 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 Functional Status Date Functional Assessmen t No Information Instructions Date Instruction Additional Infor christina Renew all medication s the same.Continue home exercise program.He is moving to [place], [place] and will seek follow-up care there after his [place] [facility] from the [employer]. Related to Intervertebral disc disorders w radiculopathy, lumbar region MRI lumbar spine and EMG studies today.No new medicines.Return in 1 month Related to Obstructive sleep apnea CPAP therapy at 10/6 with heated mist and nasal mask.Continue all other medicines the same.Return in 2 months. Related to Obstructive sleep apnea Sleep titration stud y next week. He may need oxygen supplements if he cannot tolerate the CPAP devices due to the nocturnal hypoxia.Continue all medicines as same.Return in 1 month. Related to Obstructive sleep apnea Return after sleep s kaye.Add Micardis 40 mg daily.Return in 6 weeks. Related to Obstructive sleep apnea Check sleep study.Return in 1 mo nt. Related to Obstructive sleep apnea Review available kathryn ging for cervical radiculopathy and check EMG studies. Related to Cervical disc disorder w radiculopathy, mid-cervical region Assessments Type Assessment Date No Information Patient Care Teams Name Effective Dates (start - stop) Status Members No Information
--- OUTSIDE RECORDS SUMMARY | 2024-07-28 06:54 | XMS_ITS | Encounter Summary ---
Author Organization [facility] Address [address] [place] [address] Care Team Providers Care Craft Superintendent Name Role Phone Donovan Gamez MD Primary Care Provider Reason for Visit * Reason Onset Date Comments Case Management 11/25/2019 [facility] Encounter Details Date Type Department Care Team (Late st Contact Info) Description 11/25/2019 Patient Outreach [facility] Outpatient Care [facility] [place] [address] [place] [address] Nai Saleem RN Case Management ([facility]) Social History Tobacco Use Types Packs/Day Years Used Date Smoking Tobacco: Never Assessed Sex and Gender Information Value Date Recorded Sex Assigned at Not on file Gender Identity Not on file Sexual Orientation Not on file documented as of this encounter Progress Notes * Nai Saleem RN - 11/25/2019 4:19 PM CDT Call placed to member with no answer. Message left asking for return call with CM phone number. Aliyah Saleem RN Case Manager [facility] Management documented in this encounter Plan of Treatment Not on file documented as of this encounter Visit Diagnoses Not on filedocumented in this encounter Care Teams Craft Superintendent Relationship Specialty Start Date End Date Donovan Gamez MD [address] [place] [address] [place] [phone] PCP - General Family Practice 03/13/19 documented as of this encounter
--- OUTSIDE RECORDS SUMMARY | 2024-07-28 06:54 | XMS_ITS | Encounter Summary ---
Author Organization [facility] Address [address] [place] [address] Care Team Providers Care Kapok Machine Operator Name Role Phone Unavailable Primary Care Provider Unavailabl e Reason for Visit * Reason Onset Date Comments Asthma 09/29/2018 Claims identifie d member for Disease Management Program. Welcome Packet mailed to member. Encounter Details Date Type Department Care Team (Late st Contact Info) Description 09/29/2018 Patient Outreach [facility] Flux Core Welder Management [address] [place] [address] Yue Rodriguez Asthma (Claims identified member for Disease Management Program. Welcome Packet mailed to member. ) Social History Tobacco Use Types Packs/Day Years Used Date Smoking Tobacco: Never Assessed Sex and Gender Information Value Date Recorded Sex Assigned at Not on file Gender Identity Not on file Sexual Orientation Not on file documented as of this encounter Progress Notes * Yue Rodriguez - 09/29/2018 1:57 PM CST Claims identified member for Disease Management Program. Welcome Packet mailed to member. EYING TEACHER documented in this encounter Plan of Treatment Not on file documented as of this encounter Visit Diagnoses Not on filedocumented in this encounter
--- OUTSIDE RECORDS SUMMARY | 2024-07-28 06:54 | XMS_ITS | Clinical Summary ---
Author Organization [facility] Address [address] Attn: Epic Prelude ADT [place] [address] Care Team Providers Care Computational Biologist Name Role Phone Donovan Gamez MD Primary Care Provider [phone] Social History Tobacco Use Types Packs/Day Years Used Date Smoking Tobacco: Never Assessed Sex and Gender Information Value Date Recorded Sex Assigned at Not on file Gender Identity Not on file Sexual Orientation Not on file Plan of Treatment Health Maintenance Due Date Last Done Comments DTAP/TDAP/TD VACCINES (1 - Tdap) 1985 HEPATITIS B VACCINES (1 of 3 - 19+ 3-dose series) 1985 COLORECTAL SCREENING 11/11/2011 Colorectal Cancer Screening 11/11/2011 FIT-DNA Q 3 years 11/11/2011 FIT/FOBT Q 1 year 11/11/2011 Flex Sig/CT Colonography Q 5 years 11/11/2011 ZOSTER VACCINE (1 of 2) 2016 INFLUENZA VACCINE (#1) 2024 07/22/2022 PNEUMOCOCCAL VACCINE 0-64 YEARS Aged Out No longer eligible based on patient's age to complete this topic Care Teams Computational Biologist Relationship Specialty Start Date End Date Donovan Gamez MD [address] [place] [address] [place] [phone] PCP - General Family Practice 03/13/19
--- OUTSIDE RECORDS SUMMARY | 2024-07-28 06:54 | XMS_ITS | Encounter Summary ---
Author Organization [facility] Address [address] [place] [address] Care Team Providers Care Home Organizer Name Role Phone Unavailable Primary Care Provider Unavailabl e Reason for Visit * Reason Onset Date Comments Case Management 01/16/2019 [facility] Encounter Details Date Type Department Care Team (Late st Contact Info) Description 01/16/2019 Patient Outreach [facility] Outpatient Care [facility] - [address] Fourth Floor [place], [place] [id number] Nai Saleem RN Case Management ([facility]) Social History Tobacco Use Types Packs/Day Years Used Date Smoking Tobacco: Never Assessed Sex and Gender Information Value Date Recorded Sex Assigned at Not on file Gender Identity Not on file Sexual Orientation Not on file documented as of this encounter Progress Notes * Nai Saleem RN - 01/16/2019 11:05 AM CDT Call placed to member with no answer. Message left asking for return call with CM phone number. Aliyah Saleem RN Case Manager [facility] Management documented in this encounter Plan of Treatment Not on file documented as of this encounter Visit Diagnoses Not on filedocumented in this encounter
--- OUTSIDE RECORDS SUMMARY | 2024-07-28 06:54 | XMS_ITS | Encounter Summary ---
Author Organization [facility] Address [address] [place] [address] Care Team Providers Care Charge Attendant Name Role Phone Unavailable Primary Care Provider Unavailabl e Reason for Visit * Reason Onset Date Comments Case Management 01/20[facility] Encounter Details Date Type Department Care Team (Late st Contact Info) Description 01/20/2019 Patient Outreach [facility] Outpatient Care Management - [place] [address], [place] [address] Nai Saleem RN Case Management ([facility] follow up) Social History Tobacco Use Types Packs/Day Years Used Date Smoking Tobacco: Never Assessed Sex and Gender Information Value Date Recorded Sex Assigned at Not on file Gender Identity Not on file Sexual Orientation Not on file documented as of this encounter Progress Notes * Nai Saleem RN - 01/20/2019 12:47 PM CDT Spoke to member about [facility] Hospitalization. Stated that he was out of town when he had angina. He stated that he has already spoken to [employer] and it is all taken care of because it was an emergency. AXEL asked about needing an in network PCP, his current Dr is [facility]. He stated that he and his discussed and he is looking for one. CM offered to send a list of PCP's in his area. He asked that it be sent to his personal email which he provided. PCP information emailed as well as the Physician Liaison line for [place]. They assist patients in getting established within their insurance network, . Aliyah Saleem RN Case Manager [facility] Care Management documented in this encounter Plan of Treatment Not on file documented as of this encounter Visit Diagnoses Not on filedocumented in this encounter
--- OUTSIDE RECORDS SUMMARY | 2024-07-28 06:54 | XMS_ITS | Encounter Summary ---
Author Organization [facility] Address [address] [place] [address] Care Team Providers Care Roller Coaster Engineer Name Role Phone Donovan Gamez MD Primary Care Provider Reason for Visit * Reason Onset Date Comments Case Management 03/16/2020 [facility] Encounter Details Date Type Department Care Team (Late st Contact Info) Description 03/16/2020 Patient Outreach [facility] Outpatient Care [place] [address], Fourth Floor [place], [place] [id number] Nai Saleem RN Case Management ([facility]) Social History Tobacco Use Types Packs/Day Years Used Date Smoking Tobacco: Never Assessed Sex and Gender Information Value Date Recorded Sex Assigned at Not on file Gender Identity Not on file Sexual Orientation Not on file documented as of this encounter Progress Notes * Nai Saleem RN - 03/16/2020 4:30 PM CDT Stated he has not lost weight but is exercising regularly. Has not been taking blood pressure but plans to start getting in the habit again. He will see his automotive engineering technician in April. CM will call and see how appointment went. He agrees to receive a call after the appointment. SIMRAN Carvajal Insurance Salesman In Partnership with [facility] Care Management [address] [place] [address] [address] [place] [address] [email or web address] * Nai Saleem RN - 03/16/2020 4:17 PM CDT Call placed to member with no answer. Message left asking for return call with CM phone number. Aliyah Saleem RN Case Manager [facility] Care Management documented in this encounter Plan of Treatment Not on file documented as of this encounter Visit Diagnoses Not on filedocumented in this encounter Care Teams Roller Coaster Engineer Relationship Specialty Start Date End Date Donovan Gamez MD [address] [place] [phone] PCP - General Family Practice 03/13/19 documented as of this encounter
--- OUTSIDE RECORDS SUMMARY | 2024-07-28 06:54 | XMS_ITS | Encounter Summary ---
Author Organization [facility] Address [address] [place] [address] Care Team Providers Care Central Supply Assistant Name Role Phone Donovan Gamez MD Primary Care Provider Reason for Visit * Reason Onset Date Comments Case Management 03/13/2019 [facility] General Ass essment Encounter Details Date Type Department Care Team (Late st Contact Info) Description 03/13/2019 Patient Outreach [facility] Outpatient Care [facility] - [address], Fourth Floor [place], [place] [id number] Nai Saleem RN Case Management ([facility] General Assessment) Social History Tobacco Use Types Packs/Day Years Used Date Smoking Tobacco: Never Assessed Sex and Gender Information Value Date Recorded Sex Assigned at Not on file Gender Identity Not on file Sexual Orientation Not on file documented as of this encounter Progress Notes * Nai Saleem RN - 03/13/2019 5:18 PM CDT Performed general assessment today. He still has not heard from [facility]. Heis going to call Saturday and let CM know if he needs assistance. Aliyah Saleem RN Case Manager [facility] Care Management documented in this encounter Plan of Treatment Not on file documented as of this encounter Visit Diagnoses Not on filedocumented in this encounter Care Teams Central Supply Assistant Relationship Specialty Start Date End Date Donovan Gamez MD [address] [place] [phone] PCP - General Family Practice 8/9/19 documented as of this encounter
--- NOTE | 2024-08-13 08:32 | P.SLEEP_ITS ---
Sleep Study Date of Study: 07/20/24 Ordering Provider: LUIS ANTONIO Monroy Interpreting Physician: Verna Fuller DO Sleep Study Type: BiPAP Titration Height: 1.88 m Weight: 127.006 kg Body Mass Index: 35.9 Neck Circumference (inches): 19 [place]: 8 Reason for Sleep Study Daytime hypersomnia despite BPAP compliance Sleep History The patient is a 58 year that had a sleep study ordered by the pulmonary group to determine optimal PAP settings. The patient occasionally awakens from sleep short of breath. He denies awakening at night with heartburn belching. He rarely snores but is frequently that others complain. He rarely has trouble sleeping when he has a cold. He occasionally wakes up gasping for air throughout the night. He occasionally has breathing problems at night observed by himself or others. He rarely sweats excessively at night. He rarely has heart palpitations or irregular heartbeats during the night. He frequently falls asleep during the day but never while driving. He rarely has trouble at school or work due to sleepiness. He rarely feels unable to move waking up or falling asleep. He occasionally experiences vivid dreamlike scenes upon awakening or falling asleep. He denies feeling afraid of going to sleep. He denies having nightmares. He frequently remembers his dreams. He occasionally has thoughts racing through his mind. He denies feeling sad, depressed or anxious. He rarely has muscular tension. He rarely notices parts of his jerk. He denies kicking during the night. He rarely has crawling and aching feelings in his legs but occasionally has leg pain during the night. She rarely grinds his teeth during sleep and rarely awakens with morning jaw pain he is rarely bothered by pain during the day but occasionally awakened by pain during the night. He occasionally wakes feeling stiff in the morning. He frequently wakes up with sore or achy muscles. He rarely wakes up with pain in the neck, spine the other joints. He goes to bed between 9-10 p.m. on weekdays and at 10:00 p.m. on the weekends. It takes 10 15 minutes to fall asleep. He not typically wake up throughout the night. Wakes up 5:00 a.m. on weekdays and at 7 on the weekends. He typically gets 6-7 hours of sleep per night. He will stay in bed for 5-10 minutes after waking up morning. He currently lives with his and son. He denies consuming any caffeinated beverages within 2 hours of bedtime. He denies engaging in physical exercise before bedtime. He will watch television before falling asleep. He denies taking naps in the afternoon the evening. He consumes 2 caffeinated beverages per day. He quit smoking cigarettes 33 years ago. He occasionally consumes an alcoholic beverage. He denies recreational drug use. 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 Presbyopia Type 2 diabetes mellitus without complications Atherosclerotic heart disease of [place] coronary artery without angina pectoris Old myocardial infarction Essential (primary) hypertension Hyperlipidemia, unspecified Vitamin D deficiency, unspecified ED (erectile dysfunction) Benign prostatic hyperplasia without lower urinary tract symptoms 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 KIRBY (obstructive sleep apnea) Vocal cord paralysis Surgical History Surgical History History of coronary angioplasty with insertion of stent 01/2019 History of lung biopsy 1992 1993 X2 Social History Social History Smoking packs per day: 0.5 Smoking cigarettes per day: 10.0 Years smoked: 4 Smoking pack-years: 2.00 Smoking status: Former smoker Smoking end date: 08/05/90 Alcohol intake: current Substance use: never Substance use type: does not use Lack of Transportation: No Lack of Food: Never True Current Housing: I Have Housing Concerned About Future Housing: No Difficulty Paying Gas/Electric Bills: No Difficulty Paying for Meds: No Currently Unemployed: No Education: Master's Degree or Higher Difficulty w/ Childcare or Family Care: No Living arrangements: with family Occupation/Education: occupation Gender identity (if verbalized by the patient): Male Sexual Orientation (if Verbalized by the Patient): Straight or Heterosexual Medications Home Medications ?Medication ?Instructions ?Recorded ?Confirmed ?Type aspirin 81 mg chewable tablet 81 mg PO DAILY 06/17/19 07/13/24 History metoprolol succinate 100 mg 100 mg PO DAILY 06/17/19 07/13/24 History tablet,extended release 24 hr telmisartan 40 mg tablet 40 mg PO DAILY 07/08/20 07/13/24 History rosuvastatin 40 mg tablet 40 mg PO DAILY 07/13/22 07/13/24 History ticagrelor 90 mg tablet (Brilinta) 60 mg PO Q12H 07/13/22 07/13/24 History nitroglycerin 0.4 mg sublingual 0.4 mg sublingual Q5M PRN Chest 08/14/22 07/13/24 History tablet Pain coenzyme Q10 75 mg capsule 75 mg PO DAILY 07/12/23 07/13/24 History benzonatate 200 mg capsule 200 mg PO PRN PRN Cough 01/17/24 07/13/24 History testosterone enanthate 200 mg/mL 200 mg IM WEEKLY 01/17/24 07/13/24 History intramuscular oil albuterol sulfate 90 mcg/actuation 1 - 2 puff inhalation Q4-6H PRN 01/31/24 07/13/24 Rx aerosol inhaler shortness of breath or wheezing #8.5 grams tirzepatide 10 mg/0.5 mL 10 mg (0.5 mL) subcut WEEKLY #2 mL 05/27/24 07/13/24 Rx subcutaneous pen injector (Darrick) budesonide-formoterol HFA 160 See Rx Instructions .Route 07/20/24 Rx mcg-4.5 mcg/actuation aerosol .COMPLEX #10.2 ea inhaler tadalafil 20 mg tablet (Cialis) 20 mg PO DAILY #8 tabs 07/20/24 Rx Sleep Procedure A full night PAP Titration using the [employer] multi-channel system recorded the standard physiologic parameters including EEG, EOG, submentalis EMG, anterior tibialis EMG, EKG, body position, nasal and oral airflow using nasal pressure sensor and thermistor.? Respiratory parameters of chest and abdominal movements were recorded with Respiratory Inductance Plethysmography belts. Oxygen saturation was recorded by pulse oximetry. Video monitoring was also performed. Sleep stages, periodic limb movements, and EEG arousals were scored in 30 second epochs according to the criteria of the AASM Scoring Manual. The Apnea-Hypopnea Index was calculated using CMS guidelines for definition of hypopnea with 4% O2 desaturations while scoring respiratory events. Sleep Architecture The total recording time was 447.8 minutes.? The total sleep time was 400.0 minutes. Sleep latency was 2.7 minutes. REM latency was 64.0 minutes. Sleep efficiency was 89.3%. The patient had 25 awakenings for an awakening index of 3.8. Wake after Sleep Onset time was 45.0 minutes. The patient spent 39.0 minutes, 9.8% of total sleep time in Stage N1. The patient spent 243.5 minutes, 60.9% in Stage N2. The patient spent 0.0 minutes, 0.0% in Stage N3. The patient spent 117.5 minutes, 29.4% in Stage REM. Respiratory Analysis The patient had 4 hypopneas, 2 obstructive apneas and 1 central apnea for an overall Apnea Hypopnea Index of 1.1 events per hour. The REM Apnea Hypopnea Index was 1.5. The NREM Apnea Hypopnea Index was 0.8. The patient had a Central Apnea Hypopnea Index of 0.1. There was no evidence of Bronson-Lr Respirations. The patient was started on BPAP 8/4 cm H2O and titrated to BPAP 12/8 cm H2O due to hypopneas. The patient was able to fall asleep starting on BPAP 8/4 cm H2O. The patient was able to achieve REM sleep starting on BPAP 10/6 cm H2O. The patient was able to achieve a residual AHI less than 5 with both NREM and REM sleep in the supine position on the final 2 pressures. On BPAP 10/6 cm H2O, the patient spent 107 minutes in NREM and 51.5 minutes in NREM with 3 hypopneas, resulting in an AHI of 1.1. On BPAP 12/8 cm H2O, the patient spent 138 minutes in NREM and 66 minutes in NREM with 2 obstructive apneas, 1 central apnea and 11 hypopneas, resulting in an AHI of 4.1. The patient had a sleep efficiency of 96.6% on 10/6 cm H2O and 85.2% on 12/8 cm H2O. Arousals There were 110 total arousals for an arousal index of 16.5. There were 55 spontaneous arousals for an index of 8.3. ?There were 10 arousals due to respiratory events for an index of 1.5. There were 31 arousals due to periodic limb movements for an index of 4.7.? There were 14 arousals due to isolated limb movements for an index of 2.1. Periodic Limb Movements The patient had 33 isolated limb movements with an index of 5.0. The patient had 285 periodic limb movements with index of 42.8, which is elevated (normal < 15). Patient had a total of 318 limb movements with a total limb movement index of 47.7. Oximetry Data The patient had an average oxygen saturation of 93.4% in sleep with a minimum oxygen saturation of 88.0% and a maximum oxygen saturation of 98.0%. The patient had 4 oxygen desaturations that were 4% or greater resulting in an Oxygen Desaturation Index of 0.6.? The patient spent 0.2 minutes of total sleep time with an oxygen saturation below 88%. Snoring Profile Mild to moderate snoring was present in the beginning of the study. The snoring resolved once the patient was titrated to Cardiac Profile The EKG showed normal sinus rhythm with occasional PVCs. The patient had an average pulse rate of 64.0 bpm with a minimum pulse rate of 57.0 bpm and a maximum pulse rate of 83.0 bpm. EEG Profile No signs of seizure activity seen. Assessment and Plan Assessment and Plan (1) KIRBY (obstructive sleep apnea): Code(s): G47.33 - Obstructive sleep apnea (adult) (pediatric) Status: Acute Assessment and Plan: The patient was started on BPAP 8/4 cm H2O and titrated to BPAP 12/8 cm H2O due to hypopneas. The patient's optimal pressure setting was BPAP 10/6 cm H2O, which is his current BPAP pressure setting at home. I recommend leaving his pressure setting at 10/6 cm H2O. (2) PLMD (periodic limb movement disorder): Code(s): G47.61 - Periodic limb movement disorder Status: Acute Assessment and Plan: The patient had a significant number of limb movements during the study with the majority being periodic in nature. Slightly over 10% of the patient's periodic limb movements caused arousals in his sleep. The patient's sleep history does not suggest Restless Leg Syndrome. I recommend that the patient have a serum ferritin drawn for evaluation of iron deficiency anemia. If the patient has a serum ferritin less than 75 ng/mL, I recommend starting a daily iron supplement and a Vitamin C supplement for better absorption. If the serum ferritin is greater than 75 ng/mL, I recommend starting a dopamine agonist and titrating the dose until symptoms resolve. There are nonpharmacological methods to treat limb movements including daily exercise, stretching calf muscles before bed, avoiding excessive amounts of caffeine and alcohol, vitamin B supplementation, magnesium lotion massaged into legs before bed, and use of a weighted blanket. Data The data obtained during this sleep study is adequate for interpretation. Certification This sleep study has been reviewed by a board certified sleep medicine physician.
[2024-08-17 16:56] VITALS: BMI 35.9
== END ==
PROVIDERS: PCP Physician Assistant; Visit Provider Physician Assistant
DX: G47.33 Obstructive sleep apnea (adult) (pediatric) (principal); G47.61 Periodic limb movement disorder; I11.9 Hypertensive heart disease without heart failure; I25.9 Chronic ischemic heart disease, unspecified
CPT/HCPCS: 95811

== ENCOUNTER 2024-08-21 14:42 | Outpatient (CLI) | payer BC, OTHER, SELFPAY ==
--- OUTSIDE RECORDS SUMMARY | 2024-08-27 07:09 | XMS_ITS | Encounter Summary ---
Author Organization [facility] Address [address] [place] [address]. 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 Unable to assess 08/13/2022 9:53 AM INDUSTRIAL ECONOMICS PROFESSOR documented as of this encounter Plan of Treatment Upcoming Encounters Date Type Department Care Team (Late Contact Info) Description 08/31/2024 3:00 PM INDUSTRIAL ECONOMICS PROFESSOR Office Visit [facility] [address] [place] [phone] Carroll Self MD [facility]. [address] [address] documented as of this encounter Procedures Procedure [...] on filedocumented in this encounter Care Teams Poly Packer And Heat Sealer Relationship Specialty Start Date End Date Carole Ravi PA-C [facility] [address] [place] [phone] PCP - General PHYSICIAN HOUSEKEEPING MANAGER 01/26/19 Carroll Self MD [facility]. [address] [address] [place] Cloth Printer Helper CARDIOVASCULAR DISEASE 01/19/19 documented as of this encounter
--- OUTSIDE RECORDS SUMMARY | 2024-08-27 07:09 | XMS_ITS | Continuity of Care Document ---
Author Organization [facility] Address [address] [place] [phone] Phone Care Team Providers Care Spare Fixer Name Role Phone Italo Costa MD Unavailable [...] Copied on Encounter [facility] [address] [place] [address], [id number] , tel:[phone] It[facility] [place] No Information 7 Igor Puckett. [address] [place] [address], [address] [place] [address] , . tel: [phone] OFFICE/OUTPA TIENT VISIT, EST Italo [facility] [address] [place] [address], [address] [place] [address] , tel: [phone] Italo [facility] [place] Follow Up of Sleep problems (chief complaint) Back pain (chief complaint) Obstructive sleep apneaCervical disc disorder w radiculopathy, mid-cervical regionIntervertebra l disc disorders w radiculopathy, lumbar region 6 Igor Puckett. [address] [place] [address], [address] [place] [address] , . tel: [phone] Referring Provider: Radha Collier , [address] [place] [address], [id number]. [facility] [address] [place] [address], [address] [place] [address] , tel: [phone] Italo [facility] [place] No Information 6 Igor Puckett. [address] [place] [address], [address] [place] [address] , . tel: [phone] Italo [facility] M[facility] [address] [place] [address], [address] [place] [address] , tel: [phone] Italo [facility] M[facility] [place] Follow Up of Back pain (chief complaint) Intervertebral disc disorders w radiculopathy, lumbar regionObstructive sleep apneaCancer of lung 6 Igor Puckett. [address] [place] [address], [address] [place] [address] , . tel: [phone] Referring Provider: Radha Collier , [address] [place] [address], [id number]. Italo [facility] M[facility] [address] [place] [address], [id number] , tel:[phone] Italo Costa M.D[facility] P.A. Alexei Smalls Follow Up of Sleep apnea (follow up) (chief complaint) Intervertebral disc disorders w radiculopathy, lumbar regionCervical disc disorder w radiculopathy, mid-cervical regionObstructive sleep apnea 6 Igor Italo. [address] [place] [address], [id number] , [place]. tel:[phone] Referring Provider: Radha Collier , [address] [place] [address], [id number]. Italo Costa M[facility] P.[facility] [address] [place] [address], [id number] , tel:[phone] [facility] No Information 6 Igor Puckett. [address] [place] [address], [id number] , [place]. [phone] Referring Provider: Italo Costa, [address] [place] [address], [id number] . tel:[phone] OFFICE/OUTPA TIENT VISIT, EST Italo Costa M[facility] [address] [place] [address], [id number] , tel:[phone] Italo Costa M[facility] P[facility] [place] Sleep apnea (follow up) (chief complaint) Cervical disc disorder w radiculopathy, mid-cervical regionIntervertebra l disc disorders w radiculopathy, lumbar regionObstructive sleep apneaCancer of lung 6 Igor Craigny. [address] [place] [address], [id number] , [place]. tel:[phone] Referring Provider: Radha Collier , [address] [place] [address], [id number]. Italo oCsta M.D., P.A., [address] [place] [address], [id number] , [place] tel: [phone] [facility] No Information 5 Igor Puckett. [address] [place] [address], [id number] , [place]. tel: [phone] Referring Provider: Italo Costa, [address] [place] [address], [id number] . tel:[phone] OFFICE/OUTPA TIENT VISIT, EST Italo Costa M[facility] [address] [place] [address], [id number] , [place] tel: [phone] Italo Costa M.D[facility] P[facility] [place] Sleep apnea (follow up) (chief complaint) Cervical disc disorder w radiculopathy, mid-cervical regionIntervertebra l disc disorders w radiculopathy, lumbar regionObstructive sleep apnea 5 Igor Italo. [address] [place] [address], [id number] , [place]. tel: [phone] Referring Provider: Radha Collier , [address] [place] [address], [id number]. OFFICE/OUTPA TIENT VISIT, NEW Italo [facility] M[facility] [address] [place] [address], [id number] , [place] tel: [phone] Italo [facility] M[facility] [place] Sleep apnea (consult) (chief complaint) Obstructive sleep apneaCervical disc disorder w radiculopathy, mid-cervical regionIntervertebra l disc disorders w radiculopathy, lumbar region 5 Igor Italo. [address] [place] [address], [id number] , [place]. tel: [phone] Referring Provider: Radha Collier , [address] [place] [address], [id number]. Family History Family Member Type Diagnosis Age At Onset Mother Problem (finding) hypertension Mother Problem (finding) Cardiovascular disease Sister Problem (finding) Alive and well Mother Problem (finding) Alive and well Father Problem (finding) Alive and well Brother Problem (finding) Alive and well Mother Problem (finding) malignant neop lasm of breast in first degree relative Payers Payer name Insurance type Covered democrat ID [place] grullon(s) [employer] [id number] Social History Type Description Quantity Date Captured [...] some numbness in both feet. On profile [employer] for many years. Had to [...] the study Sleep apnea (follow up) [facility] presents for follow up of hypersomnia. [...] same.Continue home exercise program.He is moving to [place], [place] and will seek follow-up care there after his mcfp from the [employer]. Related to Intervertebral disc disorders [...]
--- OUTSIDE RECORDS SUMMARY | 2024-08-27 07:09 | XMS_ITS | Encounter Summary ---
Author Organization [facility] Address [address] [place] [address]. 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 Unable to assess 08/13/2022 9:53 AM COAL MINE INSPECTOR documented as of this encounter Plan of Treatment Upcoming Encounters Date Type Department Care Team (Late Contact Info) Description 08/31/2024 3:00 PM COAL MINE INSPECTOR [facility] [address] [place] [address] Carroll Self MD Three [facility]. [address] [address] documented as of this encounter Visit Diagnoses Not on filedocumented in this encounter Care Teams Technical Assistance Consultant Relationship Specialty Start Date End Date Carole Ravi PA-C FAMILY MEDICINE [address] [place] [phone] PCP - General PHYSICIAN BARREL CHARRER HELPER 01/26/19 Carroll Self MD Three [facility]. [address] [address] [place] Reproduction Technician CARDIOVASCULAR DISEASE 01/19/19 documented as of this encounter
--- OUTSIDE RECORDS SUMMARY | 2024-08-27 07:09 | XMS_ITS | Clinical Summary ---
Author Organization [facility] Address [address] [place] [address]. [place] [address] [place] [address] Care Team Providers Care Industrial Cleaning Technician Name Role Phone Carroll Self MD Unavailable [phone] Carole Ravi PA-C Primary Care Provider [phone] Allergies Active Allergy Reactions Criticality Noted Date [...] needed for Erectile Dysfunction. 10 tablet 1 1 Active SYMBICORT 160-4.5 MCG/ACT inhaler 2 (two) times a day. 1 Active testosterone enanthate (DELATESTRYL) 200 MG/ML injection Inject 0.5 mLs (100 mg total) into the muscle every 7 days. 3 Active MOUNJARO 10 MG/0.5ML injection Inject 10 mg into the skin every 7 days. 4 Active nitroglycerin (NITROSTAT) 0.[address] 1 TABLET (0.4 MG TOTAL) UNDER THE TONGUE EVERY 5 (FIVE) MINUTES NEEDED FOR CHEST PAIN. MAXIMUM 3 DOSES. THEN CALL 911 25 tablet 3 4 Active MISC NATURAL PRODUCTS OR Take by mouth daily. hepatacore Active Vitamin D-Vitamin K (VITAMIN K2-VITAMIN D3 OR) Take by mouth daily. Active albuterol sulfate HFA 108 (90 Base) MCG/ACT inhaler INHALE 1 - 2 PUFFS BY MOUTH EVERY 4 - 6 HOURS NEEDED FOR SHORTNESS OF BREATH OR WHEEZING 4 Active rosuvastatin (CRESTOR) 40 MG tablet take 1 tablet by mouth everyday at bedtime 90 tablet 1 4 Active metoprolol succinate ER (TOPROL-XL) 100 MG 24 hr tablet take 1 tablet by mouth every day 90 tablet 1 4 Active telmisartan (MICARDIS) 40 MG tablet take 1 tablet by mouth every day 90 tablet 1 4 Active BRILINTA 60 MG tablet TAKE 1 TABLET BY MOUTH TWICE A DAY 180 tablet 1 4 Active Active Problems Problem Noted Date Diagnosed Date CAD (coronary artery disease) Dyslipidemia Essential hypertension Immunizations Name Administration Dates Next Due Anthrax Vaccine 05/23/2010, 7,01/29/2007,01/15 Fluzone 6 Months+ Quad (0.5 mL Prefilled Syringe) 06/11/2020 H1N1 Injectable 2009 Influenza 06/17/2009 Hepatitis A (Havrix 1440 El.U) [...] 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 [address] [address] Health Maintenance Due Date Last Done Comments [...] 09/17/2017 09/17/2007, 09/10/1997, 12/04/1987 COVID-19 Vaccine ( season) 2024 06/28/2021, 10/26/2020, 10/04/2020 Influenza Adult (#1) 2024 07/22/2022, 06/09/2021, 07/06/2020, Additional history exists Hemoglobin A1C 08/19/2024 02/17/2024, 02/02, 08/17/2022, Additional history exists Lipid Panel 02/16/2025 02/17/2024, 02/02, 08/17/2022, Additional history exists Meningococcal Vaccine Aged Out 03/26/2007 , 03/13/2002, 07/06/1996 No longer eligible based on patient's age to complete this topic Hepatitis B Vaccines Completed 09/17/2007, 04/07/2007, 02/26/2007 Meningococcal B Vaccine Aged Out No l onger eligible based on patient's age to complete this topic RSV Immunizations Under 20 Months Aged Out No longer eligible based on patient's age to complete this topic Procedures Procedure Name Priority Date/Time Associated Diagnosis Comments LIPID PANEL Routine 02/17/2024 9:24 AM CDT Coronary artery disease involving snoqualmie coronary artery of snoqualmie heart without angina pectoris Mixed hyperlipidemia HEMOGLOBIN, GLYCOSYLATED Routine 02/17/2024 9:24 AM CDT Type 2 diabetes mellitus with other specified complication, unspecified whether jail insulin use ([facility]) from Last 3 Months or Most Recently Relevant to Health Maintenance Results * (ABNORMAL) HGB A1C (02/17/2024 9:24 AM CDT) HGB A1C 6.1(H) <5.7 % 02/17/2024 10:54 AM CDT [facility] Comment: INCREASED RISK OF DIABETES <5.7% ?NON-DIABETES 5.7-6.4% INCREASED RISK FOR FUTURE DIABETES > OR = 6.5 CONSISTENT WITH DIABETES STANDARDS OF MEDICAL CARE IN DIABETES-2010 DIABETES CARE, 33(SUPP 1): S1-S61,2010 ESTIMATED AVG GLUCOSE 128 mg/dL 02/17/2024 10:54 AM CDT [facility] 02/17/2024 9:24 AM CDT [facility] Final Result [facility] [address] [place] [address], * LIPID PANEL (02/17/2024 9:24 AM CDT) CHOLESTEROL 95 <200.0 MG/DL 02/17/2024 10:17 AM CDT [facility] TRIGLYCERIDES 57 <150 MG/DL 02/17/2024 10:17 AM CDT [facility] HDL 47 >40.0 MG/DL 02/17/2024 10:17 AM CDT [facility] LDL (CALCULATED) 37 <100 MG/DL 02/17/20 10:17 AM CDT [facility] NON HDL CHOLESTEROL 48 <130 MG/DL 02/16 10:17 AM CDT [facility] CHOL/HDL RATIO 2.0 0.0 - 4.5 02/17/2024 10:17 AM CDT [facility] VLDL CALCULATION 11 5 - 55 MG/DL 02/17/2024 10:17 AM T [facility] LIPID INTERPRETATION 02/17/2024 10:17 AM CDT [facility] Comment: [facility] CONCENSUS REPORT RECOMMENDATIONS: ?ADULT ?CHILD ??LOW RISK: [...] ?>=130 02/17/2024 9:24 AM CDT [facility] PARTS ADVISOR [facility] Final Result [facility] [address] [place] [address], from Last 3 Months or Most Recently Relevant to Health Maintenance [place] [address] [place] [address] [facility] Care Teams Industrial Cleaning Technician Relationship Specialty Start Date End Date Carole Ravi PA-C FAMILY MEDICINE [address] [place] [phone] PCP - General PHYSICIAN COUNTER CUTTER 01/26/19 Carroll Self MD [address] [address] [place] Bandage Wrapping Machine Operator CARDIOVASCULAR DISEASE 01/19/19
--- OUTSIDE RECORDS SUMMARY | 2024-08-27 07:09 | XMS_ITS | Clinical Summary ---
Author Organization [facility] Address [address] [facility] Attn: Epic Prelude ADT SOPHY DIALLO [phone] Care Team Providers Care Wool Fleece Sorter Name Role Phone Donovan Gamez MD Primary Care Provider Social History Tobacco Use Types Packs/Day Years Used Date Smoking Tobacco: Never Assessed Sex and Gender Information Value Date Recorded Sex Assigned at Not on file Legal Sex Male 10:34 AM ELECTRON BEAM OPERATOR Gender Identity Not on file Sexual Orientation [...] age to complete this topic Care Teams Wool Fleece Sorter Relationship Specialty Start Date End Date Donovan Gamez MD [address] [place] [address] MELITON Mckeon [phone] PCP - General Family Practice 03/13/19
== END 2024-08-21 14:43 | disposition home or self-care (01) ==
LOC: ANHLAB 14:46
PROVIDERS: PCP Physician Assistant; Visit Provider Physician Assistant
DX: D64.9 Anemia, unspecified (principal)
CPT/HCPCS: 36415; 82728

== ENCOUNTER 2024-10-23 15:36 | Outpatient (CLI) | payer BC, OTHER, SELFPAY ==
--- OUTSIDE RECORDS SUMMARY | 2024-10-23 15:40 | XMS_ITS | Encounter Summary ---
Author Organization [facility] Address [address] [place] [address] Care Team Providers Care Staking Engineer Name Role Phone Carroll Self MD Unavailable [phone] Carole Ravi PA-C Primary Care Provider [phone] Donovan Gamez MD Primary Care Provider [phone] Encounter Details Date Type Department Care Team (Late st Contact Info) Description 08/20/2022 IntelliCell™ BioSciences Message Enc [place] [facility], [address] [address] Mychart, [facility] Provider Lab results [...] Information Value Date Recorded Sex Assigned at Male 09/04/2024 3:27 PM [place] FLOORING SPECIALIST Legal Sex Male 10:17 AM CDT Gender Identity Not on file Sexual Orientation Not on file 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 Unable to assess 08/13/2022 9:53 AM [place]ARD[place] FLOORING SPECIALIST documented as of this encounter Plan of Treatment Upcoming Encounters Date Type Department Care Team (Late st Contact Info) Description 03/01/2025 2:15 PM CDT Office Visit [facility] [id number] [place] [phone] Carroll Self MD [facility]. [facility] [address] [place] [address] documented as of this encounter Visit Diagnoses Not on filedocumented in this encounter Care Teams Staking Engineer Relationship Specialty Start Date End Date Carole Ravi PA-C FAMILY MEDICINE [address] [place] [phone] PCP - General PHYSICIAN ELECTRONICS TECH 01/26/19 08/27/24 Donovan Gamez MD [address] [place] [address] PCP - General 08/28/24 Carroll Self MD [facility]. [facility] [address] [place] [address] Didier Core Winder CARDIOVASCULAR DISEASE 01/19/19 documented as of this encounter
--- OUTSIDE RECORDS SUMMARY | 2024-10-23 15:40 | XMS_ITS | Clinical Summary ---
Author Organization [facility] Address [address] [facility] Attn: Epic Prelude ADT SOPHY DIALLO [phone] Care Team Providers Care Adaptive Physical Education Specialist Name Role Phone Donovan Gamez MD Primary Care Provider Social History Tobacco Use Types Packs/Day Years Used Date Smoking Tobacco: Never Assessed Sex and Gender Information Value Date Recorded Sex Assigned at Not on file Legal Sex Male 10:34 AM NUT CULLER Gender Identity Not on file Sexual Orientation Not on file Plan of Treatment Health Maintenance Due Date Last Done Comments DTAP/TDAP/TD VACCINES (1 - Tdap) 1985 HEPATITIS B VACCINES (1 of 3 - 19+ 3-dose series) 03/1986 COLORECTAL SCREENING 11/11/2011 Colorectal Cancer Screening 11/11/2011 FIT-DNA Q 3 years 11/11/2011 FIT/FOBT Q 1 year 11/11/2011 Flex Sig/CT Colonography Q 5 years 11/11/2011 ZOSTER VACCINE (1 of 2) 2016 INFLUENZA VACCINE (#1) 2024 07/22/2022 Care Teams Adaptive Physical Education Specialist Relationship Specialty Start Date End Date Donovan Gamez MD [address] [place] [address] MELITON Ocasio [phone] PCP - General Family Practice 03/13/19
--- OUTSIDE RECORDS SUMMARY | 2024-10-23 15:40 | XMS_ITS | Encounter Summary ---
Author Organization [facility] Address [address] [place] [address] Care Team Providers Care Soldering Machine Tender Name Role Phone Carroll Self MD Unavailable [phone] Carole Ravi PA-C Primary Care Provider [phone] Donovan Gamez MD Primary Care Provider [phone] Encounter Details Date Type Department Care Team (Late st Contact Info) Description 08/20/2022 Abstract [facility], [address] [address] Angela Domingo MA Social History Tobacco Use [...] Sex Assigned at Male 09/04/2024 3:27 PM CENTRAL OFFICE REPAIRER SUPERVISOR Legal Sex Male 10:17 AM CDT Gender Identity Not on file Sexual Orientation Not on file 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 Unable to assess 08/13/2022 9:53 AM CENTRAL OFFICE REPAIRER SUPERVISOR documented as of this encounter Plan of Treatment Upcoming Encounters Date Type Department Care Team (Late st Contact Info) Description 03/01/2025 2:15 PM CDT Office Visit [facility] [address] [place] [phone] [facility] [address] [place] [address] documented as of this encounter Procedures Procedure [...] on filedocumented in this encounter Care Teams Soldering Machine Tender Relationship Specialty Start Date End Date Carole Ravi PACalC FAMILY MEDICINE [address] [place] [phone] PCP - General PHYSICIAN SPORT SHOE SPIKE ASSEMBLER 01/26/19 08/27/24 Donovan Gamez MD [address] [place] [address] PCP - General 08/28/24 [facility] [address] [place] [address] [place] Member Service Representative CARDIOVASCULAR DISEASE 01/19/19 documented as of this encounter
--- OUTSIDE RECORDS SUMMARY | 2024-10-23 15:40 | XMS_ITS | Clinical Summary ---
Author Organization [facility] Address [facility] [place] [address] Care Team Providers Care Environmental Science Program Director Name Role Phone Carroll Self MD Unavailable [phone] Donovan Gamez MD Primary Care Provider [phone] Allergies Active Allergy Reactions Criticality Noted Date [...] skin every 7 days. 08/15/19 24 Active MISC NATURAL PRODUCTS OR Take by mouth daily. hepatacore Active Vitamin D-Vitamin K (VITAMIN K2-VITAMIN D3 OR) Take by mouth daily. Active albuterol sulfate HFA 108 (90 Base) MCG/ACT inhaler INHALE 1 - 2 PUFFS BY MOUTH EVERY 4 - 6 HOURS NEEDED FOR SHORTNESS OF BREATH OR WHEEZING 01/31/20 24 Active BRILINTA 60 MG tablet TAKE 1 TABLET BY MOUTH TWICE A DAY 180 tablet 1 07/13/20 24 Active nitroglycerin (NITROSTAT) 0.[address] 1 TABLET (0.4 MG TOTAL) UNDER THE TONGUE EVERY 5 (FIVE) MINUTES NEEDED FOR CHEST PAIN. MAXIMUM 3 DOSES. THEN CALL 911 25 tablet 3 09/04/19 25 Active rosuvastatin (CRESTOR) 40 MG tablet TAKE 1 TABLET BY MOUTH EVERYDAY AT BEDTIME 90 tablet 1 09/29/19 25 Active metoprolol succinate ER (TOPROL-XL) 100 MG 24 hr tablet TAKE 1 TABLET BY MOUTH EVERY DAY 90 tablet 1 09/29/19 25 Active telmisartan (MICARDIS) 40 MG tablet TAKE 1 TABLET BY MOUTH EVERY DAY 90 tablet 1 10/23/19 25 Active rosuvastatin (CRESTOR) 40 MG tablet take 1 tablet by mouth everyday at bedtime 90 tablet 1 04/08/20 24 025 Discontinued metoprolol succinate ER (TOPROL-XL) 100 MG 24 hr tablet take 1 tablet by mouth every day 90 tablet 1 04/08/20 24 025 Discontinued telmisartan (MICARDIS) 40 MG tablet take 1 tablet by mouth every day 90 tablet 1 04/22/20 24 025 Discontinued Active Problems Problem Noted Date Diagnosed Date CAD (coronary artery disease) Dyslipidemia Essential hypertension Encounters Date Type Department Care Team Description 08/31/2024 3:00 PM ENGINEERING ILLUSTRATOR Office Visit [facility] [address] [place] [address] Carroll Self MD Baugher, Dana A, COLOR MAKING SUPERVISOR Coronary Artery Disease; Cardiomyopathy; Hypertension; Lipids 08/31/2024 Travel from Last 3 Months Immunizations Name Administration Dates Next Due Anthrax [...] Sex Assigned at Male 09/04/2024 3:27 PM ENGINEERING ILLUSTRATOR Legal Sex Male 10:17 AM CDT Gender Identity Not on file Sexual Orientation Not on file 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 Not on file Not on file Last Filed Vital Signs Vital Sign Reading Time Taken Comments Blood Pressure 130/76 08/31/2024 2:52 PM ENGINEERING ILLUSTRATOR Pulse 83 08/31/2024 2:52 PM ENGINEERING ILLUSTRATOR Temperature - - Respiratory Rate - - Oxygen Saturation - - Inhaled Oxygen Concentration - - Weight 127.5 kg (281 lb) 08/31/2024 2:52 PM ENGINEERING ILLUSTRATOR Height 188 cm (6' 2 ) 08/31/2024 2:52 PM ENGINEERING ILLUSTRATOR Body Mass Index 36.08 08/31/2024 2:52 PM ENGINEERING ILLUSTRATOR Plan of Treatment Upcoming Encounters Date Type Department Care Team (Late st Contact Info) Description 03/01/2025 2:15 PM CDT [facility] [address] [place] [address] Carroll Self MD [facility]. [address] [address] Health Maintenance Due Date Last Done Comments [...] 9:24 AM CDT Coronary artery disease involving wilton coronary artery of wilton heart without angina pectoris Mixed hyperlipidemia HEMOGLOBIN, GLYCOSYLATED Routine 02/17/2024 9:24 AM CDT Type 2 diabetes mellitus with other specified complication, unspecified whether halfway insulin use from Last 3 Months or Most Recently Relevant to Health Maintenance Results * (ABNORMAL) HGB A1C (02/17/2024 9:24 AM CDT) HGB A1C 6.1(H) <5.7 % 02/17/2024 10:54 AM CDT [facility] Comment: INCREASED RISK OF DIABETES <5.7% NON-DIABETES 5.7-6.4% INCREASED RISK FOR FUTURE DIABETES > OR = 6.5 CONSISTENT WITH DIABETES STANDARDS OF MEDICAL CARE IN DIABETES-2010 DIABETES CARE, 33(SUPP 1): S1-S61,2009 ESTIMATED AVG GLUCOSE 128 mg/dL 02/17/2024 10:54 AM CDT [facility] 02/17/2024 9:24 AM CDT us Elodia Alex COLOR MAKING SUPERVISOR LABORATORY Final Result [facility] [address] [place] [address], [place] [phone] * LIPID PANEL (02/17/2024 9:24 AM CDT) [...] CENTER LAB Comment: [facility] REPORT RECOMMENDATIONS: ADULT CHILD LOW RISK: CHOLESTEROL <200 <170 TRIGLYCERIDE <150 --- HDL >=60 --- LDL <100 <110 BORDERLINE: CHOLESTEROL 200-239 170-199 TRIGLYCERIDE 150-199 --- HDL 40-59 --- LDL 100-159 110-129 HIGH RISK: CHOLESTEROL >=240 >=200 TRIGLYCERIDE >=200 --- HDL <40 --- LDL >=160 >=130 02/17/2024 9:24 AM CDT [facility] Final Result [facility] [address] [place] [address], [place] [phone] from Last 3 Months or Most Recently Relevant to Health Maintenance Insurance [facility] Care Teams Environmental Science Program Director Relationship Specialty Start Date End Date Donovan Gamez MD [address] [place] [address] [place] [id number] PCP - General 08/28/24 Carroll Self MD [address] [address] [employer] Manager CARDIOVASCULAR DISEASE 01/19/19
[2024-10-23 15:59] LABS: Basophils Percent Auto 0.7 % (0.2-1.2); Eosinophils Absolute Auto 0.1 K/mm3 (0-0.3); Eosinophils Percent Auto 1.1 % (0-4.4); Hematocrit 52.6 % (42.0-52.0); Hemoglobin 17.1 g/dL (14.0-18.0); Immature Granulocyte Absolute 0.03 K/mm3 (0.00-0.031); Immature Granulocyte Percent A 0.5 % (0-0.5); Lymphocytes Absolute Auto 1.08 K/mm3 (0.9-3.2); Lymphocytes Percent Auto 19.3 % (18.3-44.2); Mean Corpuscular HGB Conc 32.5 g/dl (32-36); Mean Corpuscular Hemoglobin 30.1 pg (26-34); Mean Corpuscular Volume 92.4 fl (80-100); Mean Platelet Volume 10.8 fl (7.4-10.4); Monocytes Absolute Auto 0.3 K/mm3 (0.1-0.6); Monocytes Percent Auto 5.7 % (2.6-8.5); Neutrophils Absolute Auto 4.1 K/mm3 (1.3-6.7); Neutrophils Percent Auto 72.7 % (45.5-73.1); Platelet Count Result 145 k/mm3 (150-375); Red Blood Count 5.69 M/mm3 (4.6-6.20); Red Cell Distribution Width 16.9 % (11.5-14.5); White Blood Count 5.6 K/mm3 (4.5-10.0)
[2024-10-23 17:16] LABS: Vitamin D 25 Hydroxy 48.8 ng/mL
[2024-10-23 17:33] LABS: Folic Acid > 20.0 ng/mL (2.76->20)
== END 2024-10-23 15:37 | disposition home or self-care (01) ==
PROVIDERS: PCP Family Medicine; Visit Provider Physician Assistant
DX: D64.9 Anemia, unspecified (principal); G47.33 Obstructive sleep apnea (adult) (pediatric); G47.61 Periodic limb movement disorder; R40.0 Somnolence; R53.83 Other fatigue
CPT/HCPCS: 36415; 82306; 82607; 82728; 82746; 84402; 84403; 84443; 85025